=== PATIENT | female | born 1940 | race Two or more races ===

== ENCOUNTER 2020-04-08 12:42 | Outpatient (REF) | payer MEDICARE, MEDICAID, SELFPAY ==
--- NOTE | 2020-04-08 12:50 | MM_ITS ---
EXAMINATION: MM DIAGNOSTIC DIGITAL BREAST TOMOSYNTHESIS, BILATERAL CLINICAL INFORMATION: Six-month follow-up small density upper outer aspect of the left breast. The lifetime risk of breast cancer based on the Tyrer-Cuzick Model is 0.8%. COMPARISON: Mammography: January 10, 2019 and studies dating back to April 17, 2011 TECHNIQUE: Digital breast tomosynthesis is performed in both the craniocaudal and mediolateral oblique views along with computer-aided detection (CAD). Synthesized 2D images are generated from the tomosynthesis. FINDINGS: The breasts are extremely dense, which lowers the sensitivity of mammography (ACR BI-RADS breast composition Category d). There are no significant masses, abnormal calcifications, or other abnormalities. The previously noted circumscribed density in the upper outer aspect of the left breast is not identified. Results are provided to the patient at time of visit by the technologist. MM/MM tomosynthesis diagnostic BI IMPRESSION: No specific mammographic evidence to suggest malignancy. ASSESSMENT: BI-RADS 1: Negative RECOMMENDATION: Routine annual mammography screening due in 12 months. This patient's information was entered into a reminder system with a target due date for their next mammogram.
== END 2020-04-08 12:43 | disposition home or self-care (01) ==
LOC: HO.MAMMO 12:42
PROVIDERS: PCP Internal Medicine; Visit Provider Internal Medicine
DX: R92.2 Inconclusive mammogram (principal)
CPT/HCPCS: 77062; 77066

== ENCOUNTER 2020-05-07 10:42 | Outpatient (REF) | payer MEDICARE, SELFPAY ==
[2020-05-07 14:05] LABS: T4 Thyroxine 8.6 ug/dL (4.5-12.0)
== END 2020-05-07 10:43 | disposition home or self-care (01) ==
LOC: HO.LAB 10:42
PROVIDERS: PCP Internal Medicine; Visit Provider Internal Medicine
DX: E03.9 Hypothyroidism, unspecified (principal); F41.9 Anxiety disorder, unspecified
CPT/HCPCS: 36415; 84436; 84443

== ENCOUNTER 2020-10-14 11:36 | Outpatient (REF) | payer MEDICARE, SELFPAY | END 2020-10-14 11:37 | disposition home or self-care (01) | LOC: HO.LAB 11:36 | PROVIDERS: PCP Internal Medicine; Visit Provider Internal Medicine | DX: Z13.89 Encounter for screening for other disorder (principal) ==

== ENCOUNTER 2020-11-23 09:18 | Outpatient (REF) | payer MEDICARE, SELFPAY ==
[2020-11-23 10:15] LABS: MANUAL DIFF FLAG NO
[2020-11-23 10:27] LABS: Basophils Absolute Auto 0.1 X10*3/uL (0.0-0.2); Basophils Percent Auto 1.1 % (0-2); Eosinophils Absolute Auto 0.5 X10*3/uL (0.0-0.4); Eosinophils Percent Auto 7.8 % (0-4); Hematocrit 36.6 % (37-47); Hemoglobin 11.7 g/dl (12.0-16.0); Imm Gran Abs Auto 0.02 X10*3/uL (0.00-0.03); Imm Gran Pct Auto 0.3 % (0.0-0.4); Lymphocytes Absolute Auto 2.5 X10*3/uL (1.2-4.9); Lymphocytes Percent Auto 36.9 % (20-40); Mean Corpuscular Hemoglobin 29.8 pg (27.0-33.0); Mean Corpuscular Volume 93.1 fL (80-98); Mean Platelet Volume 9.4 fL (9.4-12.3); Monocytes Absolute Auto 0.6 X10*3/uL (0.1-1.2); Monocytes Percent Auto 8.9 % (2-11); Platelet Count 283 X10*3/uL (160-400); Red Blood Count 3.93 X10*6/uL (4.20-5.50); Red Cell Distribution Width 13.3 % (11.0-16.0); White Blood Count 6.7 X10*3/uL (4.8-10.8)
[2020-11-23 10:53] LABS: Alanine Aminotransferase 75 U/L (0-31); Albumin Level 4.3 g/dL (3.5-5.0); Alkaline Phosphatase 113 U/L (39-117); Anion Gap 12 (12-20); Aspartate Amino Transferase 116 U/L (5-31); Bilirubin Total 0.4 mg/dL (0.0-1.0); Blood Urea Nitrogen 12 mg/dL (9-16); Calcium 9.4 mg/dL (8.4-10.2); Carbon Dioxide 30 mmol/L (22-29); Chloride 101 mmol/L (96-108); Cholesterol 152 mg/dL; Estimated Glomerular Filt Rate 57; Glucose Random 105 mg/dL (60-115); HDL Cholesterol 30 mg/dL; LDL Cholesterol Calculated 51 mg/dl; Potassium 4.6 mmol/L (3.3-5.1); Sodium 138 mmol/L (135-145); Total Protein 8.4 g/dL (6.5-8.0); Triglycerides 356 mg/dL
[2020-11-23 11:11] LABS: Free T4 (Free Thyroxine) 0.89 ng/dL (0.71-1.85); Thyroid Stimulating Hormone 4.99 uIU/mL (0.32-4.0); Vitamin D 25-OH Total 30.5 ng/mL (>30)
[2020-11-23 11:15] LABS: Folate 18.4 ng/mL (> or = 4.0); Vitamin B12 899 pg/mL (200-900)
== END 2020-11-23 09:19 | disposition home or self-care (01) ==
LOC: HO.LAB 09:18
PROVIDERS: PCP Internal Medicine; Visit Provider Internal Medicine
DX: E03.9 Hypothyroidism, unspecified (principal); I10 Essential (primary) hypertension; E78.00 Pure hypercholesterolemia, unspecified; K21.9 Gastro-esophageal reflux disease without esophagitis
CPT/HCPCS: 36415; 80053; 80061; 82306; 82607; 82746; 83735; 84439; 84443; 85025

== ENCOUNTER 2021-01-04 08:09 | Outpatient (REF) | payer MEDICARE, MEDICAID, SELFPAY ==
[2021-01-04 10:17] LABS: Free T4 (Free Thyroxine) 0.86 ng/dL (0.71-1.85); Thyroid Stimulating Hormone 3.66 uIU/mL (0.32-4.0)
== END 2021-01-04 08:10 | disposition home or self-care (01) ==
LOC: HO.LAB 08:09
PROVIDERS: PCP Internal Medicine; Visit Provider Internal Medicine
DX: E03.9 Hypothyroidism, unspecified (principal)
CPT/HCPCS: 36415; 84439; 84443

== ENCOUNTER 2021-05-10 10:57 | Outpatient (REF) | payer MEDICARE, MEDICAID, SELFPAY ==
--- NOTE | ~2021-05-10 | XR_ITS ---
EXAMINATION: XR CHEST CLINICAL INFORMATION: Essential primary hypertension COMPARISON: Previous chest x-rays most recent April 2019 TECHNIQUE: 2 views of the chest were obtained. FINDINGS: The cardiac and mediastinal contours are stable. The lungs are clear. There is no pleural effusion or pneumothorax. There is mild scoliosis of the thoracic spine and degenerative changes. XR/XR chest 2V IMPRESSION: No evidence for acute disease in the chest.
== END 2021-05-10 10:58 | disposition home or self-care (01) ==
LOC: HO.XRAY 10:57
PROVIDERS: Visit Provider Internal Medicine
DX: I10 Essential (primary) hypertension (principal)
CPT/HCPCS: 71046

== ENCOUNTER 2021-06-17 13:01 | Outpatient (REF) | payer MEDICARE, MEDICAID, SELFPAY ==
--- NOTE | ~2021-06-17 | MM_ITS ---
EXAMINATION: MM SCREENING DIGITAL BREAST TOMOSYNTHESIS, BILATERAL CLINICAL INFORMATION: Screening. Asymptomatic. The lifetime risk of breast cancer based on the Tyrer-Cuzick Model is 1%. COMPARISON: Mammography: 04/08/2020, 01/10/2019, 07/09/2018, 01/02/2018, 12/19/2017, 08/05/2014 TECHNIQUE: Digital breast tomosynthesis is performed in both the craniocaudal and mediolateral oblique views along with computer-aided detection (CAD). Synthesized 2D images are generated from the tomosynthesis. FINDINGS: The breasts are heterogeneously dense, which may obscure small masses (ACR BI-RADS breast composition Category c). Breast tissue composition borders on extremely dense. Parenchymal pattern is similar to prior studies. There is no developing density or interval mass or interval architectural abnormality. Scattered bilateral benign coarse round and vascular calcifications are again seen. The axilla and skin contours are unremarkable. No significant changes. MM/MM tomosynthesis screening BI IMPRESSION: No significant changes from prior studies. ASSESSMENT: BI-RADS 2: Benign RECOMMENDATION: Routine annual mammography screening. This patient's information was entered into a reminder system with a target due date for their next mammogram.
== END 2021-06-17 13:02 | disposition home or self-care (01) ==
LOC: HO.MAMMO 13:01
PROVIDERS: PCP Internal Medicine; Visit Provider Internal Medicine
DX: Z12.31 Encounter for screening mammogram for malignant neoplasm of breast (principal)
CPT/HCPCS: 77063; 77067

== ENCOUNTER 2021-11-02 09:07 | Outpatient (REF) | payer MEDICARE, MEDICAID, SELFPAY ==
[2021-11-02 09:23] LABS: MANUAL DIFF FLAG NO
[2021-11-02 10:09] LABS: Basophils Absolute Auto 0.1 X10*3/uL (0.0-0.2); Basophils Percent Auto 0.9 % (0-2); Eosinophils Absolute Auto 0.5 X10*3/uL (0.0-0.4); Eosinophils Percent Auto 7.6 % (0-4); Hematocrit 34.9 % (37.0-47.0); Hemoglobin 11.4 g/dl (12.0-16.0); Imm Gran Abs Auto 0.02 X10*3/uL (0.00-0.03); Imm Gran Pct Auto 0.3 % (0.0-0.4); Immature Retic Fraction 13.7 % (3.0-15.9); Lymphocytes Absolute Auto 2.6 X10*3/uL (1.2-4.9); Lymphocytes Percent Auto 40.1 % (20-40); Mean Corpuscular HGB Conc 32.7 g/dl (31.0-35.0); Mean Corpuscular Hemoglobin 29.6 pg (27.0-33.0); Mean Corpuscular Volume 90.6 fL (80.0-98.0); Monocytes Absolute Auto 0.7 X10*3/uL (0.1-1.2); Neutrophils Absolute Auto 2.7 x10*3/uL (2.0-8.3); Neutrophils Percent Auto 41.1 % (45-73); Platelet Count 270 X10*3/uL (160-400); Red Blood Count 3.85 X10*6/uL (4.20-5.50); Red Cell Distribution Width 13.2 % (11.0-16.0); Reticulocytes Absolute 0.078 X10*6/uL (0.026-0.095); White Blood Count 6.6 X10*3/uL (4.8-10.8)
[2021-11-02 10:36] LABS: Alanine Aminotransferase 23 U/L (0-31); Albumin Level 4.2 g/dL (3.5-5.0); Alkaline Phosphatase 92 U/L (39-117); Anion Gap 10 (12-20); Aspartate Amino Transferase 37 U/L (5-31); Bilirubin Total 0.5 mg/dL (0.0-1.0); Blood Urea Nitrogen 15 mg/dL (9-16); Calcium 9.3 mg/dL (8.4-10.2); Carbon Dioxide 29 mmol/L (22-29); Chloride 98 mmol/L (96-108); Cholesterol 125 mg/dL; Estimated Glomerular Filt Rate 59; Glucose Random 96 mg/dL (60-115); HDL Cholesterol 33 mg/dL; Iron 66 mcg/dL (30-160); LDL Cholesterol Calculated 65 mg/dl; Percent Iron Saturation 23 % (15-50); Potassium 4.8 mmol/L (3.3-5.1); Sodium 132 mmol/L (135-145); Total Iron Binding Capacity 288 mcg/dL (228-428); Total Protein 8.3 g/dL (6.5-8.0); Triglycerides 135 mg/dL; Unsaturated Iron Binding 222 ug/dL
[2021-11-02 10:59] LABS: Ferritin 119 ng/mL (10-250); Free T4 (Free Thyroxine) 0.92 ng/dL (0.71-1.85); Thyroid Stimulating Hormone 1.76 uIU/mL (0.32-4.0)
[2021-11-02 11:12] LABS: Folate > 20.0 ng/mL (> or = 4.0); Vitamin B12 711 pg/mL (200-900)
== END 2021-11-02 09:08 | disposition home or self-care (01) ==
LOC: HO.LAB 09:07
PROVIDERS: PCP Internal Medicine; Visit Provider Internal Medicine
DX: D64.9 Anemia, unspecified (principal); E03.9 Hypothyroidism, unspecified; E78.00 Pure hypercholesterolemia, unspecified; K76.0 Fatty (change of) liver, not elsewhere classified
CPT/HCPCS: 36415; 80053; 80061; 82607; 82728; 82746; 83540; 84439; 84443; 85025; 85045

== ENCOUNTER 2022-03-18 10:49 | Emergency (ER) | payer MEDICARE, MEDICAID, SELFPAY ==
[2022-03-18 10:52] VITALS: BP 158/76; PULSE 99; RESP 18; TEMP 36.6; O2SAT 98; BMI 23.6
--- NOTE | 2022-03-18 12:08 | ED_ITS ---
HPI - General Adult General Chief complaint: General Medical Stated complaint: R side pain Time Seen by Provider: 03/18/22 12:03 Source: patient Mode of arrival: ambulatory History of Present Illness HPI narrative: 81-year-old female with a past medical history of asthma, GERD, HLD, HTN, hypothyroid, knee osteoarthritis, presenting to the ED complaining of right- sided low back pain radiating down right lower extremity times months. Denies known injury, trauma, fall, fever, numbness, tingling, weakness, urinary incontinence/retention, hematuria, flank pain. Takes Tylenol & ASA without relief Onset (ago): month(s) Related Data Home Medications Medication Instructions Recorded Confirmed albuterol sulfate 2.5 mg/3 mL 2.5 mg inhalation Q4-6H PRN 03/08/20 02/23/22 (0.083 %) solution for nebulization lidocaine 5 % topical ointment 1 applic topical TID 03/08/20 02/23/22 hydroxyzine HCl 25 mg tablet 25 mg PO BID PRN 07/26/21 02/23/22 methylprednisolone 4 mg tablet 4 mg PO DAILY 02/23/22 02/23/22 fluticasone furoate 100 1 inh inhalation DAILY 03/14/22 mcg-vilanterol 25 mcg/dose inhalation powder (Breo Ellipta) Previous Rx's Medication Instructions Recorded polyethylene glycol 3350 17 17 g PO DAILY #510 grams 03/22/20 gram/dose oral powder olopatadine 0.1 % eye drops 1 drp ophthalmic (eye) BID #5 mL 01/31/21 fluticasone propionate 50 2 spray intranasal DAILY #16 grams 04/19/21 mcg/actuation nasal spray,suspension (Flonase Allergy Relief) levothyroxine 50 mcg tablet 50 mcg PO QAM 90 days #90 tabs 04/19/21 meloxicam 7.5 mg tablet 7.5 mg PO DAILY #30 tabs 04/19/21 hydrocortisone 2.5 % topical cream 1 appl IN BID-QID PRN hemorrhoids 07/26/21 with perineal applicator #30 grams (Proctosol HC) triamcinolone acetonide 0.5 % 1 appl topical BID 7 days #15 grams 07/26/21 topical cream diclofenac sodium 1 % topical gel 4 g topical QID 30 days #3 grams 08/23/21 (Voltaren Arthritis Pain) paroxetine HCl 10 mg tablet 10 mg PO DAILY 90 days #90 tabs 08/23/21 alprazolam 1 mg tablet 1 mg PO BID 30 days #45 tabs 10/24/21 docusate sodium 100 mg capsule 200 mg PO DAILY 90 days #180 caps 11/04/21 (Colace) atorvastatin 10 mg tablet 10 mg PO DAILY #90 tabs 12/05/21 promethazine 25 mg tablet 25 mg PO Q4-6H PRN nausea and 02/23/22 vomiting #30 tabs blood pressure monitor (Blood #1 ea 03/01/22 Pressure Kit) albuterol sulfate 90 mcg/actuation 2 puff inhalation Q4-6H PRN 03/09/22 aerosol inhaler (Ventolin HFA) bronchospasm #8.5 grams amlodipine 5 mg tablet 5 mg PO DAILY 90 days #90 tabs 03/09/22 pantoprazole 40 mg tablet,delayed 40 mg PO BID #180 tabs 03/09/22 release simethicone 125 mg capsule 125 mg PO BID-QID PRN abdominal 03/09/22 distention #20 caps acetaminophen 500 mg tablet 500 mg PO Q6H PRN fever or pain 03/18/22 (Tylenol Extra Strength) #14 tabs cyclobenzaprine 5 mg tablet 5 mg PO Q8H PRN pain (scale score 03/18/22 7-10) 5 days #14 tabs lidocaine 5 % topical patch 1 patch topical DAILY PRN pain #30 03/18/22 (Lidoderm) ea naproxen 500 mg tablet 500 mg PO BID PRN pain 10 days #20 03/18/22 tabs Allergies Allergy/AdvReac Type Severity Reaction Status Date / Time penicillin G [Penicillin G] Allergy Mild VOMITING Verified 02/23/22 14:23 penicillin V Allergy Unknown hives Verified 02/23/22 14:23 Review of Systems Review of Systems: Constitutional: No Fever, No Chills ENT/Mouth: No Ear Pain, No Nasal Congestion, No Sinus Pain, No Hoarseness, No sore throat, No Rhinorrhea, No Swallowing Difficulty Cardiovascular: No Chest Pain, No SOB Respiratory: No Cough, No Sputum, No Wheezing Gastrointestinal: No Nausea, No Vomiting, No Diarrhea, No Constipation, No Abdominal pain Genitourinary: No Dysuria, No Urinary Frequency, No Hematuria, No Urinary Incon tinence/retention, No Urgency, No Flank Pain Musculoskeletal: + joint pain, No Myalgias, No Joint Swelling Skin: No Skin Lesions, No rash Neuro: No Weakness, No Numbness, No Paresthesias Yes all other systems are reviewed and are negative Constitutional: Constitutional: Reports as per [facility] Past Medical History Attestation statement: The following information was validated with the patient. Medical History Asthma Bilateral femoral artery stenosis Colonoscopy refused GERD (gastroesophageal reflux disease) Hypercholesterolemia Hypertension Hypothyroid Knee osteoarthritis Surgical History History of surgery Family History Family History Family/Other Medical history unknown Social History Social History Housing: Apartment Alcohol intake: never Patient Tobacco Use Status: Never used Tobacco Tobacco use type: Cigarette e-Cigarette/Vaping Use: Never Used Second Hand Smoke Exposure: No Advance Directives: No service: No Current occupational status: disabled Current occupational exposures/hazards: No Cognitive needs: No Hearing needs: No Vision needs: Yes Physical Exam ED Vital Signs: Vital Signs - 24 hr 03/18/22 10:52 Temperature 98 F Pulse Rate 99 Respiratory Rate 18 Blood Pressure 158/76 H Pulse Oximetry 98 Oxygen Delivery Method Room Air BMI result Body Mass Index 23.6 Const General: cooperative, healthy appearing and no acute distress Orientation/consciousness: patient oriented x3 Limitations: no limitations HENMT Head: Yes normal to inspection and Yes atraumatic Ears: hearing grossly normal bilaterally General nose exam: Normal external nose present Face and sinus: Yes normal facial exam Eyes General: appearance normal, both eyes and all related structures EOM: EOMs intact bilaterally Neck Neck: Yes normal visual inspection and Yes no meningeal signs Resp Effort & Inspection: normal respiratory effort and no respiratory distress Cardio Rate: regular rate Heart sounds: S1 normal heart sound present and S2 normal heart sound present General: Yes no CVA tenderness Back/Spine/Pelvis Other: No midline thoracic/lumbar spinous tenderness/step-off or deformity. + right- sided buttock MSK tenderness to palpation Back: no CVA tenderness Thoracic/Lumbar Spine: thoracic and lumbar spine normal to inspection Pelvis: no pain with anterior-posterior compression Skin Rashes: no rashes Wounds: no wounds Neuro Other: Strength intact throughout. No saddle anesthesia. Sensation intact to light touch. Neurovascular intact distally General: patient oriented x3, gait normal, tone normal, moves all extremities and no meningeal signs Gait exam (Neuro): Normal gait present Extrem General: Yes normal to inspection Medical Decision Making MDM Narrative Medical decision making narrative: 81-year-old female with a past medical history of asthma, GERD, HLD, HTN, hypothyroid, knee osteoarthritis, presenting to the ED complaining of right- sided low back pain radiating down right lower extremity times months. On exam vital signs stable, NAD, nontoxic appearing, no midline spinous tenderness throughout or red flag symptoms, ambulating with steady gait. No saddle a nesthesia. Concern for MSK pain/strain and sciatica. Low suspicion for cauda equina, cord compression, fracture, pyelo Plan: IM Toradol, p.o. Flexeril Results discussed with patient including worrisome signs and symptoms and strict return precautions, and when to return to the emergency department. They verbalized understanding and feel safe for discharge at this time. Medical Records Medical records reviewed: Yes I reviewed the patient's medical records. Lab Data Lab results reviewed: Yes I reviewed the patient's lab results. Discharge Plan Discharge Clinical Impression: Sciatic leg pain Patient Disposition: Home, Self-Care Instructions: Sciatica (ED) Additional Instructions: Your pain is likely musculoskeletal Flexeril is a muscle relaxer, take at night as it makes you drowsy, do not drive, drink alcohol, or operate machinery while taking it Naproxen as an anti-inflammatory / pain medication, take with food Lidoderm patches are numbing patches, apply to painful area In addition take Tylenol at home If symptoms persist or worsen, pain becomes unbearable, you developed urinary retention or incontinence, or weakness return to the ED Es probable que jacobsen dolor sea musculoesquel?lyndsey Flexeril es un relajante muscular, t?priti por la noche ya que te adormece, no conduzcas, bebas alcohol ni operes maquinaria mientras lo jd. Naproxeno lenard medicamento antiinflamatorio/analg?sico, t?yoon con alimentos Los parches de Lidoderm son parches anest?sicos, se aplican en el ?marina dolorida Adem?s richie Tylenol en casa Si los s?ntomas persisten o empeoran, el dolor se vuelve insoportable, desarroll? retenci?n urinaria o incontinencia, o debilidad, regrese al servicio de urgencias. Prescriptions: New lidocaine [Lidoderm] 5 % adhesive patch,medicated 1 patch topical DAILY MDD remove after 12 hours PRN (Reason: pain) Qty: 30 0RF Rx Instructions: leave on most painful area for up to 12 hrs cyclobenzaprine 5 mg tablet 5 mg PO Q8H PRN (Reason: pain (scale score 7-10)) 5 Days Qty: 14 0RF acetaminophen [Tylenol Extra Strength] 500 mg tablet 500 mg PO Q6H PRN (Reason: fever or pain) Qty: 14 0RF naproxen 500 mg tablet 500 mg PO BID PRN (Reason: pain) 10 Days Qty: 20 0RF No Action polyethylene glycol 3350 17 gram/dose powder 17 g PO DAILY Qty: 510 11RF diclofenac sodium [Voltaren Arthritis Pain] 1 % gel 4 g topical QID 30 Days Qty: 3 4RF Rx Instructions: apply to single elbow, wrist or hand; for hand includes palm/fingers/back of hand paroxetine HCl 10 mg tablet 10 mg PO DAILY 90 Days Qty: 90 1RF alprazolam 1 mg tablet 1 mg PO BID 30 Days Qty: 45 3RF atorvastatin 10 mg tablet 10 mg PO DAILY Qty: 90 2RF (DME) blood pressure monitor [Blood Pressure Kit] Kit See Rx Instructions .ROUTE .MEDSUPPLY Qty: 1 0RF Rx Instructions: As directed amlodipine 5 mg tablet 5 mg PO DAILY 90 Days Qty: 90 2RF albuterol sulfate [Ventolin HFA] 90 mcg/actuation HFA aerosol inhaler 2 puff inhalation Q4-6H PRN (Reason: bronchospasm) Qty: 8.5 0RF pantoprazole 40 mg tablet,delayed release (DR/EC) 40 mg PO BID Qty: 180 2RF simethicone 125 mg capsule 125 mg PO BID-QID PRN (Reason: abdominal distention) Qty: 20 0RF fluticasone furoate-vilanterol [Breo Ellipta] 100-25 mcg/dose blister with device 1 inh inhalation DAILY lidocaine 5 % ointment 1 applic topical TID albuterol sulfate 2.5 mg /3 mL (0.083 %) solution for nebulization 2.5 mg inhalation Q4-6H PRN levothyroxine 50 mcg tablet 50 mcg PO QAM 90 Days Qty: 90 3RF fluticasone propionate [Flonase Allergy Relief] 50 mcg/actuation spray,suspension 2 spray intranasal DAILY Qty: 16 8RF Rx Instructions: administer into each nostril meloxicam 7.5 mg tablet 7.5 mg PO DAILY Qty: 30 0RF olopatadine 0.1 % drops 1 drp ophthalmic (eye) BID Qty: 5 1RF Rx Instructions: separate doses by at least 6-8 hours hydroxyzine HCl 25 mg tablet 25 mg PO BID PRN hydrocortisone [Proctosol HC] 2.5 % cream with perineal applicator 1 appl IN BID-QID PRN (Reason: hemorrhoids) Qty: 30 0RF triamcinolone acetonide 0.5 % cream 1 appl topical BID 7 Days Qty: 15 0RF docusate sodium [Colace] 100 mg capsule 200 mg PO DAILY 90 Days Qty: 180 3RF methylprednisolone 4 mg tablet 4 mg PO DAILY promethazine 25 mg tablet 25 mg PO Q4-6H PRN (Reason: nausea and vomiting) Qty: 30 0RF Referrals: Po,Arlen Cronin MD [Primary Care Provider] - 5 days Print Language: Belarusian
[2022-03-18] MEDS: Cyclobenzaprine HCl 10 MG TABLET PO (13:04)
[2022-03-18] MEDS: Ketorolac Tromethamine 30 MG/ML VIAL IM (13:04)
== END 2022-03-18 13:19 | disposition home or self-care (01) ==
PROVIDERS: Emergency Provider Emergency Medicine Emergency Medical Services; PCP Internal Medicine
DX: M54.41 Lumbago with sciatica, right side (principal); I10 Essential (primary) hypertension; E78.00 Pure hypercholesterolemia, unspecified; Z79.02 Long term (current) use of antithrombotics/antiplatelets; Z79.899 Other long term (current) drug therapy
CPT/HCPCS: 96372; 99283; 99284; J1885

== ENCOUNTER 2022-09-11 10:08 | Outpatient (REF) | payer MEDICARE, MEDICAID, SELFPAY ==
[2022-09-11 10:22] LABS: MANUAL DIFF FLAG NO
[2022-09-11 10:48] LABS: Basophils Absolute Auto 0.1 X10*3/uL (0.0-0.2); Basophils Percent Auto 1.5 % (0-2); Eosinophils Absolute Auto 0.6 X10*3/uL (0.0-0.4); Eosinophils Percent Auto 9.8 % (0-4); Hematocrit 35.5 % (37.0-47.0); Hemoglobin 11.6 g/dl (12.0-16.0); Imm Gran Abs Auto 0.02 X10*3/uL (0.00-0.03); Imm Gran Pct Auto 0.3 % (0.0-0.4); Immature Retic Fraction 12.9 % (3.0-15.9); Lymphocytes Absolute Auto 2.2 X10*3/uL (1.2-4.9); Lymphocytes Percent Auto 36.9 % (20-40); Mean Corpuscular HGB Conc 32.7 g/dl (31.0-35.0); Mean Corpuscular Hemoglobin 29.2 pg (27.0-33.0); Mean Corpuscular Volume 89.4 fL (80.0-98.0); Monocytes Absolute Auto 0.6 X10*3/uL (0.1-1.2); Monocytes Percent Auto 10.8 % (2-11); Neutrophils Absolute Auto 2.4 x10*3/uL (2.0-8.3); Neutrophils Percent Auto 40.7 % (45-73); Platelet Count 307 X10*3/uL (160-400); Red Blood Count 3.97 X10*6/uL (4.20-5.50); Red Cell Distribution Width 13.3 % (11.0-16.0); Retic HGB Equivalent 34.2 pg (30.0-35.0); Reticulocytes Absolute 0.077 X10*6/uL (0.026-0.095); White Blood Count 5.8 X10*3/uL (4.8-10.8)
[2022-09-11 11:44] LABS: Alanine Aminotransferase 36 U/L (0-31); Alkaline Phosphatase 114 U/L (39-117); Anion Gap 13 (12-20); Aspartate Amino Transferase 62 U/L (5-31); Bilirubin Total 0.6 mg/dL (0.0-1.0); Blood Urea Nitrogen 11 mg/dL (9-16); Calcium 9.7 mg/dL (8.4-10.2); Carbon Dioxide 27 mmol/L (22-29); Chloride 96 mmol/L (96-108); Estimated Glomerular Filt Rate > 60; Glucose Random 96 mg/dL (60-115); Iron 56 mcg/dL (30-160); Percent Iron Saturation 23 % (15-50); Potassium 4.4 mmol/L (3.3-5.1); Sodium 132 mmol/L (135-145); Total Iron Binding Capacity 243 mcg/dL (228-428); Total Protein 8.4 g/dL (6.5-8.0); Unsaturated Iron Binding 187 ug/dL
[2022-09-11 12:12] LABS: Ferritin 148 ng/mL (10-250); Folate 17.8 ng/mL (> or = 4.0); Free T4 (Free Thyroxine) 0.81 ng/dL (0.71-1.85); Vitamin B12 778 pg/mL (200-900)
== END 2022-09-11 10:09 | disposition home or self-care (01) ==
LOC: HO.LAB 10:08
PROVIDERS: PCP Internal Medicine; Visit Provider Internal Medicine
DX: D64.9 Anemia, unspecified (principal)
CPT/HCPCS: 36415; 80053; 82607; 82728; 82746; 83540; 84439; 84443; 85025; 85045

== ENCOUNTER 2022-09-21 08:20 | Emergency (ER) | payer MEDICARE, MEDICAID, SELFPAY ==
--- NOTE | ~2022-09-21 | XR_ITS ---
EXAMINATION: TWO-VIEW CHEST, LUMBAR SPINE, AND RIGHT HIP. CLINICAL INFORMATION: Right-sided chest pain. Right hip pain. Lower back pain. COMPARISON: Chest x-ray of May 10, 2021 lumbar spine of June 15, 2009 TECHNIQUE: PA and lateral chest, AP pelvis and 2 views right hip, and three-view lumbar spine. FINDINGS: Chest: There is some stable increased interstitial markings about the right upper lobe. No new confluent parenchymal disease is noted. There is a small region of density about the level of the left nipple which appears to be within the lingula and may be related to atelectasis or small focus of pneumonitis. No pneumothorax or pleural effusion. Heart normal size. No evidence of pulmonary edema. AP pelvis and two-view right hip: There is no evidence of acute fracture or diastases of the pelvis. Sacroiliac joints appear unremarkable. No destructive bony lesion is identified. The hip joint spaces appear maintained. There is some mild spurring about the greater trochanters. Prominent vascular calcifications are noted. There appears to be some degenerative disc disease with facet arthropathy L5-S1. There is no evidence of acute fracture or dislocation of the right hip. Right hip joint space maintained. Mild collar spurring present. No abnormal lytic or sclerotic lesions are appreciated about the femoral head. Lumbar spine: There is no evidence of acute fracture, spondylolisthesis, or spondylolysis of the lumbar spine. There are 5 nonrib-bearing lumbar vertebra. There is disc space narrowing seen at the L5-S1 level with bilateral facet arthropathy. Pedicles appear intact. There is calcification of a nonaneurysmal abdominal aorta. XR/XR lumbar spine 2-3V IMPRESSION: Degenerative disc disease and facet arthropathy at the L5-S1 level. Chronic region of increased interstitial markings within the right upper lobe as well as minimal density within the lingula likely related to atelectasis. No evidence of acute fracture or diastases the pelvis. No significant right hip abnormality identified as described above.
[2022-09-21 08:26] VITALS: BP 174/79; PULSE 95; RESP 16; TEMP 37.2; O2SAT 97; BMI 25.1
[2022-09-21] MEDS: oxyCODONE HCl Immed Release 5 MG TABLET PO (09:40)
--- NOTE | 2022-09-21 11:31 | ED_ITS ---
HPI - Fall General Chief Complaint: Fall Stated Complaint: fall , back pain and side pain Time Seen by Provider: 09/21/22 08:33 Source: patient Mode of arrival: ambulatory Limitations: no limitations History of Present Illness HPI Narrative: 81-year-old female presents with multiple musculoskeletal complaints after fall. Patient fell on Sunday from a chair. She did not hit her head or lose consciousness. She did hit the right side of her body. She is complaining of right-sided thoracic pain posteriorly, right low back pain, right hip and pelvic pain. The pain is moderate to severe. Worse with movement. The pain does not radiate. Pain is achy and sharp in nature. She has been able to ambulate but with increasing difficulty secondary to pain. She denies any headache, nausea, vomiting, vision changes, focal neurologic deficits. The fall was mechanical not associated with chest pain, lightheadedness, shortness of breath, palpitations or dizziness. She has tried Tylenol with no relief at home. Related Data Home Medications Medication Instructions Recorded Confirmed albuterol sulfate 2.5 mg/3 mL 2.5 mg inhalation Q4-6H PRN 03/08/20 06/13/22 (0.083 %) solution for nebulization hydroxyzine HCl 25 mg tablet 25 mg PO BID PRN 07/26/21 06/13/22 fluticasone furoate 100 1 inh inhalation DAILY 03/14/22 06/13/22 mcg-vilanterol 25 mcg/dose inhalation powder (Breo Ellipta) Previous Rx's Medication Instructions Recorded polyethylene glycol 3350 17 17 g PO DAILY #510 grams 03/22/20 gram/dose oral powder olopatadine 0.1 % eye drops 1 drp ophthalmic (eye) BID #5 mL 01/31/21 fluticasone propionate 50 2 spray intranasal DAILY #16 grams 04/19/21 mcg/actuation nasal spray,suspension (Flonase Allergy Relief) triamcinolone acetonide 0.5 % 1 appl topical BID 7 days #15 grams 07/26/21 topical cream diclofenac sodium 1 % topical gel 4 g topical QID 30 days #3 grams 08/23/21 (Voltaren Arthritis Pain) paroxetine HCl 10 mg tablet 10 mg PO DAILY 90 days #90 tabs 08/23/21 docusate sodium 100 mg capsule 200 mg PO DAILY 90 days #180 caps 11/04/21 (Colace) promethazine 25 mg tablet 25 mg PO Q4-6H PRN nausea and 02/23/22 vomiting #30 tabs blood pressure monitor (Blood #1 ea 03/01/22 Pressure Kit) albuterol sulfate 90 mcg/actuation 2 puff inhalation Q4-6H PRN 03/09/22 aerosol inhaler (Ventolin HFA) bronchospasm #8.5 grams amlodipine 5 mg tablet 5 mg PO DAILY 90 days #90 tabs 03/09/22 pantoprazole 40 mg tablet,delayed 40 mg PO BID #180 tabs 03/09/22 release acetaminophen 500 mg tablet 500 mg PO Q6H PRN fever or pain 03/18/22 (Tylenol Extra Strength) #14 tabs levothyroxine 50 mcg tablet 50 mcg PO QAM 90 days #90 tabs 05/04/22 CANE #1 ea 06/13/22 SHOWER CHAIR WITH BACK #1 ea 06/13/22 alprazolam 1 mg tablet 1 mg PO BID 30 days #45 tabs 08/31/22 atorvastatin 10 mg tablet 10 mg PO DAILY #90 tabs 09/12/22 simethicone 125 mg capsule 125 mg PO BID-QID PRN abdominal 09/12/22 distention #60 caps Allergies Allergy/AdvReac Type Severity Reaction Status Date / Time penicillin G [Penicillin G] Allergy Mild VOMITING Verified 09/12/22 16:03 penicillin V Allergy Unknown hives Verified 09/12/22 16:03 PMFSH Past Medical History Medical History Asthma Bilateral femoral artery stenosis Colonoscopy refused GERD (gastroesophageal reflux disease) Hypercholesterolemia Hypertension Hypothyroid Knee osteoarthritis Surgical History History of surgery Family History Family History Family/Other Medical history unknown Social History Social History Housing: Apartment Alcohol intake: never Patient Tobacco Use Status: Never used Tobacco Tobacco use type: Cigarette e-Cigarette/Vaping Use: Never Used Second Hand Smoke Exposure: No Advance Directives: No Advance Directives Information Provided: Yes service: No Current occupational status: disabled Current occupational exposures/hazards: No Cognitive needs: No Hearing needs: No Vision needs: Yes Physical Exam Vital Signs: Vital Signs: Last Vital Signs Temp 98.9 F 09/21/22 08:26 Pulse 95 09/21/22 08:26 Resp 16 09/21/22 08:26 BP 174/79 H 09/21/22 08:26 Pulse Ox 97 09/21/22 08:26 O2 Del Method Room Air 09/21/22 08:26 BMI result Body Mass Index 25.1 GEN: Well developed, no acute distress, alert, oriented HEENT: Normocephalic, atraumatic, normal external ears, nose appears normal, no oropharyngeal edema or exudates Eyes: Normal to appearance Neck: Supple, no lymphadenopathy Respiratory: Talks in complete sentences, no respiratory distress, clear to auscultation bilaterally Cardiovascular: Regular rate and rhythm, no murmurs rubs or gallops Abdomen: Soft, nontender, nondistended, no guarding, no rebound Back: Right thoracic pain, right low back pain, no midline tenderness Extremities: No clubbing cyanosis or edema, no deformity, no external rotation or shortening Neurologic: No focal neurologic deficits, cranial nerves 2-12 intact, strength is 5/5 bilaterally Skin: No rash Course Course Course Narrative: 81-year-old female presents after an accidental fall, presenting with right- sided pain complaints. There is no evidence deformities. She has no acute distress. Her lungs are clear to auscultation bilaterally. Abdomen was soft nontender. She did have some right thoracic posterior pain, right lumbar paraspinous tenderness. She has some tenderness over the buttock area but no external short rotation or shortening of the right hip. X-rays were negative for acute traumatic injury. Patient was treated with oxycodone with good improvement. Will discharge the patient follow-up with her primary care provider. Will prescribe a small amount of oxycodone. She can take Tylenol for additional Medications Administered Discontinued Medications Generic Name Dose Route Start Last Admin Trade Name Guiq PRN Reason Stop Dose Admin Oxycodone HCl 5 mg 09/21/22 09:11 09/21/22 09:40 Oxycodone Hcl Immed Release 5 Mg Tablet PO 09/21/22 09:12 5 mg ONCE ONE Administration Medical Decision Making Medical Decision Making MDM Narrative: 81-year-old female presents with right-sided traumatic pain. Examination revealed tenderness to the posterior thoracic area, lumbar right paraspinous, right buttock area. There is no evidence supporting. Doubt pelvic fracture or hip fracture. However, will obtain a chest x-ray to rule out pulmonary contusion, pneumothorax, lumbar x-ray to rule out acute compression fracture and a pelvic and hip film given her age to rule out pelvic and/or hip fracture. Differential Diagnosis Differential Diagnoses: The differential diagnosis associated with the presentation includes (Sprain, strain, contusion, musculoskeletal pain) Independent Interpretation I performed an independent interpretation of an: Plain X-Ray (Chest: No acute cardiopulmonary disease, low LS spine: No acute traumatic injury, right hip with pelvis: No acute traumatic injury) Radiology Impression Radiologist Impression: XR/XR chest 2V IMPRESSION: Degenerative disc disease and facet arthropathy at the L5-S1 level. ? Chronic region of increased interstitial markings within the right upper lobe as well as minimal density within the lingula likely related to atelectasis. ? No evidence of acute fracture or diastases the pelvis. ? No significant right hip abnormality identified as described above. Prescription Management I considered prescription management with: Pain Medication Discharge Plan Discharge Clinical Impression: Musculoskeletal pain, Accidental fall Patient Disposition: Home, Self-Care Instructions: Fall Prevention (ED), Musculoskeletal Pain (ED) Additional Instructions: For pain: Tylenol 1000 mg every 6 hours as needed Oxycodone 5 mg every 8 hours as needed, may cause constipation, nausea, sedation Prescriptions: No Action polyethylene glycol 3350 17 gram/dose powder 17 g PO DAILY Qty: 510 11RF diclofenac sodium [Voltaren Arthritis Pain] 1 % gel 4 g topical QID 30 Days Qty: 3 4RF Rx Instructions: apply to single elbow, wrist or hand; for hand includes palm/fingers/back of hand paroxetine HCl 10 mg tablet 10 mg PO DAILY 90 Days Qty: 90 1RF (DME) blood pressure monitor [Blood Pressure Kit] Kit See Rx Instructions .ROUTE .MEDSUPPLY Qty: 1 0RF Rx Instructions: As directed amlodipine 5 mg tablet 5 mg PO DAILY 90 Days Qty: 90 2RF albuterol sulfate [Ventolin HFA] 90 mcg/actuation HFA aerosol inhaler 2 puff inhalation Q4-6H PRN (Reason: bronchospasm) Qty: 8.5 0RF pantoprazole 40 mg tablet,delayed release (DR/EC) 40 mg PO BID Qty: 180 2RF fluticasone furoate-vilanterol [Breo Ellipta] 100-25 mcg/dose blister with device 1 inh inhalation DAILY levothyroxine 50 mcg tablet 50 mcg PO QAM 90 Days Qty: 90 3RF alprazolam 1 mg tablet 1 mg PO BID 30 Days Qty: 45 0RF atorvastatin 10 mg tablet 10 mg PO DAILY Qty: 90 2RF acetaminophen [Tylenol Extra Strength] 500 mg tablet 500 mg PO Q6H PRN (Reason: fever or pain) Qty: 14 0RF albuterol sulfate 2.5 mg /3 mL (0.083 %) solution for nebulization 2.5 mg inhalation Q4-6H PRN fluticasone propionate [Flonase Allergy Relief] 50 mcg/actuation spray,suspension 2 spray intranasal DAILY Qty: 16 8RF Rx Instructions: administer into each nostril olopatadine 0.1 % drops 1 drp ophthalmic (eye) BID Qty: 5 1RF Rx Instructions: separate doses by at least 6-8 hours hydroxyzine HCl 25 mg tablet 25 mg PO BID PRN triamcinolone acetonide 0.5 % cream 1 appl topical BID 7 Days Qty: 15 0RF docusate sodium [Colace] 100 mg capsule 200 mg PO DAILY 90 Days Qty: 180 3RF promethazine 25 mg tablet 25 mg PO Q4-6H PRN (Reason: nausea and vomiting) Qty: 30 0RF (DME) SHOWER CHAIR WITH BACK See Rx Instructions .Route .MEDSUPPLY Qty: 1 0RF Rx Instructions: As directed (DME) CANE See Rx Instructions .Route .MEDSUPPLY Qty: 1 0RF Rx Instructions: As directed simethicone 125 mg capsule 125 mg PO BID-QID PRN (Reason: abdominal distention) Qty: 60 0RF Referrals: Po,Arlen Cronin MD [Primary Care Provider] - 1 week Print Language: Malagasy
== END 2022-09-21 11:48 | disposition home or self-care (01) ==
PROVIDERS: Emergency Provider Emergency Medicine; PCP Internal Medicine
DX: S39.92XA Unspecified injury of lower back, initial encounter (principal); S29.9XXA Unspecified injury of thorax, initial encounter; M54.6 Pain in thoracic spine; M25.551 Pain in right hip; M79.10 Myalgia, unspecified site; R07.89 Other chest pain; W01.0XXA Fall on same level from slipping, tripping and stumbling without subsequent striking against object, initial encounter; Y93.9 Activity, unspecified; Y92.9 Unspecified place or not applicable; Y99.9 Unspecified external cause status; Z79.899 Other long term (current) drug therapy
CPT/HCPCS: 71046; 72100; 73502; 99283

== ENCOUNTER 2022-12-28 15:14 | Outpatient (AMB) | payer MEDICARE, MEDICAID, SELFPAY ==
--- NOTE | 2022-12-28 15:20 | A.OFFPC_ITS ---
Vital Signs 12/28/22 15:21 Height 4 ft 10 in Weight 111 lb BMI 23.2 BP 140/82 H Blood Pressure Location Lt brachial Position Sitting Pulse 75 Pulse Source Pulse Oximeter Pulse Oximetry (%) 95 Oxygen Delivery Method Room Air Intake Visit Reasons: 3 month f/u Allergies penicillin G [Penicillin G] Allergy (Mild, Verified 12/28/22 15:21) VOMITING penicillin V Allergy (Unknown, Verified 12/28/22 15:21) hives Medication List - Last Reconciled 12/28/22 by Arlen Bray MD acetaminophen (Tylenol Extra Strength) 500 mg PO Q6H PRN albuterol sulfate 2.5 mg inhalation Q4-6H PRN albuterol sulfate 90 mcg/actuation (Ventolin HFA) 2 puffs inhalation Q4-6H PRN alprazolam 1 mg PO BID 30 days amlodipine 5 mg PO DAILY 90 days atorvastatin 10 mg PO DAILY blood pressure monitor (Blood Pressure Kit) As directed [CANE As directed] diclofenac sodium 1% (Voltaren Arthritis Pain) 4 grams topical QID 30 days docusate sodium (Colace) 200 mg (2 x 100 mg) PO DAILY 90 days dupilumab (Dupixent) 200 mg (1.34 mL) subcut Q2W fluticasone furoate-vilanterol 100-25 mcg/dose (Breo Ellipta) 1 inh inhalation DAILY fluticasone propionate 50 mcg/actuation (Flonase Allergy Relief) 2 sprays intranasal DAILY hydroxyzine HCl 25 mg PO BID PRN levothyroxine 50 mcg PO QAM 90 days olopatadine 0.1% 1 drp ophthalmic (eye) BID oxycodone 5 mg PO Q8H PRN pantoprazole 40 mg PO BID paroxetine HCl 10 mg PO DAILY 90 days polyethylene glycol 3350 17 grams PO DAILY promethazine 25 mg PO Q4-6H PRN [SHOWER CHAIR WITH BACK As directed] simethicone 125 mg PO BID-QID PRN triamcinolone acetonide 0.5% 1 appl topical BID 7 days Tobacco use date assessed: 09/12/22 Fall risk assessment: No Falls in past year Last assessed Fall Risk: 12/28/22 Dental Screening Dental Screen Date: 12/28/22 Did you have a dental visit in the last 12 months?: No Did you have a dental problem in the last 6 months where you did not have access to dental care?: No Was dental information given to patient?: No HPI 3 month f/u HPI Details 82-year-old female with hypercholesterolemia asthma hypertension GERD hypothyroidism and generalized anxiety disorder last seen in August 2022 blood work was requested. Patient is here for follow-up. Review of the notes September 21 was in the emergency room for fall complains of right side of her body pain right thoracic pain right lower back right hip and pelvic pain denies passing out or head trauma x-rays were negative patient was prescribed oxycodone. fell on the stairs- tripped - missed a step- states has not fallen before. dicsussed about preventive for fall - scatter rugs, no pets, grab bar, extension cord. noted weight loss, complains of JOHNSON no apetitte PFSH Medical History Asthma Bilateral femoral artery stenosis Colonoscopy refused GERD (gastroesophageal reflux disease) Hypercholesterolemia Hypertension Hypothyroid Knee osteoarthritis Surgical History History of surgery Family History (Updated 12/28/22 @ 15:22 by Vivien Bryant CMA) Family/Other Medical history unknown Social History Housing: Apartment Alcohol intake: never Patient Tobacco Use Status: Never used Tobacco Tobacco use type: Cigarette e-Cigarette/Vaping Use: Never Used Second Hand Smoke Exposure: No service: No Current occupational status: disabled Current occupational exposures/hazards: No Cognitive needs: No Hearing needs: No Vision needs: Yes Questionnaire PHQ-9 Over the last 2 weeks, how often have you been bothered by any of the following problems? 1. Little interest or pleasure in doing things: nearly every day (due to family emergency ) 2. Feeling down, depressed, or hopeless: nearly every day 3. Trouble falling or staying asleep, or sleeping too much: several days 4. Feeling tired or having little energy: several days 5. Poor appetite or overeating: nearly every day 6. Feeling bad about yourself - or that you are a failure or have let yourself or your family down: nearly every day 7. Trouble concentrating on things, such as reading the newspaper or watching television: nearly every day 8. Moving or speaking so slowly that other people could have noticed. Or the opposite - being so fidgety or restless that you have been moving around a lot more than usual: not at all 9. Thoughts that you would be better off or of hurting yourself in some way: not at all Total score: 17 Depression Screening Interpretation: Positive Source: Developed by Drs. Jose Anderson, Carrie Millard, Santi Frazier and colleagues, with an educational frank from [employer]. Thrive Questionnaire Date Thrive assessed: 06/13/22 AUDIT C Alcohol Use Questionnaire (AUDIT-C) 1. How often do you have a drink containing alcohol?: Never 2. How many drinks containing alcohol do you have on a typical day when you are drinking?: 1 or 2 (0) 3. How often do you have six or more drinks on one occasion?: Never Total Score: 0 RAMONA-7 AMB Questionnaire RAMONA-7 Date RAMONA - 7 assessed: 09/12/22 Source: Developed by Drs. Jose Anderson, Carrie Millard, Santi Frazier and colleagues, with an educational frank from [employer]. Physical exam (Primary Care) Vital Signs: Last Vital Signs Pulse 75 12/28/22 15:21 BP 140/82 H 12/28/22 15:21 Pulse Ox 95 12/28/22 15:21 Oxygen Delivery Method Room Air 12/28/22 15:21 BMI result Body Mass Index 23.2 Tobacco/Smoking Status: Tobacco use Status Tobacco use date assessed 09/12/22 12/28/22 15:22 Patient Tobacco Use Status Never used Tobacco 12/28/22 15:22 Tobacco use type Cigarette 12/28/22 15:22 e-Cigarette/Vaping Use Never Used 12/28/22 15:22 PHQ-9: PHQ-9 Score PHQ-9: Total score 17 12/28/22 15:29 Depression Screening Interpretation: Positive Thrive Assessment: Date of Thrive Assessment Date Thrive assessed 06/13/22 12/28/22 15:22 Const General: alert; No acute distress Eyes Conjunctivae: conjunctivae normal Resp Auscultation: clear to auscultation bilaterally Cardio Rate: regular rate Rhythm: regular rhythm GI Inspection: Yes normal to inspection Extrem General: Yes normal to inspection and No edema Assessment and Plan Assessment & Plan (1) Hyponatremia: Code(s): E87.1 - Hypo-osmolality and hyponatremia Plan: Patient on paroxetine will continue to monitor (2) Anemia: Code(s): D64.9 - Anemia, unspecified Plan: Chronic and stable- refused colon test (3) Generalized anxiety disorder: Comment: Patient follows up with [facility] Counseling Code(s): F41.1 - Generalized anxiety disorder Plan: Continue with medication presently and counseling (4) Hypothyroid: Code(s): E03.9 - Hypothyroidism, unspecified Qualifiers: Hypothyroidism type: acquired Qualified Code(s): E03.9 - Hypothyroidism, unspecified Plan: Continue with the thyroid medication but will need to have a retest (5) GERD (gastroesophageal reflux disease): Code(s): K21.9 - Gastro-esophageal reflux disease without esophagitis Qualifiers: Esophagitis presence: without esophagitis Qualified Code(s): K21.9 - Gastro-esophageal reflux disease without esophagitis Plan: Avoid the foods that causes that usually spicy foods, tomato products, juices, coffee, soda and foods that your sensitive to. After eating do not lie down, allow 3-4 hours before in lie down. And keep the head of bed above 30 degrees to avoid the acid from going up. (6) Hypertension: Code(s): I10 - Essential (primary) hypertension Qualifiers: Hypertension type: essential hypertension Qualified Code(s): I10 - Essential (primary) hypertension Plan: Continue with blood pressure medication. Decrease salt intake and exercise patient is on amlodipine 5 mg once a day (7) Hypercholesterolemia: Code(s): E78.00 - Pure hypercholesterolemia, unspecified Plan: Avoid fried foods, chicken skin, eggs, butter margarine, pastries and meat. Be it pork or beef they have a lot of cholesterol LDL goal of less than 130 and triglyceride of less than 150 patient is on atorvastatin 10 mg once a day (8) TSH elevation: Code(s): R79.89 - Other specified abnormal findings of blood chemistry Plan: Patient will need retesting. Orders: Orders Vitamin B12 and Folate Today D64.9 - Anemia, unspecified Comprehensive Met. Panel Today E87.1 - Hypo-osmolality and hyponatremia Ferritin Today D64.9 - Anemia, unspecified IRON PROFILE Today D64.9 - Anemia, unspecified Magnesium Today E03.9 - Hypothyroidism, unspecified Phosphorus Today E03.9 - Hypothyroidism, unspecified Free T4 (Free Thyroxine) Today E03.9 - Hypothyroidism, unspecified Thyroid Stimulating Hormone Today E03.9 - Hypothyroidism, unspecified Complete Blood Count Auto Diff Today E03.9 - Hypothyroidism, unspecified Reticulocyte Count Today D64.9 - Anemia, unspecified XR chest 2V Today J45.20 - Mild intermittent asthma, uncomplicated Medications: New dupilumab (Dupixent) allergy immunology 200 mg (1.34 mL) subcut Q2W 1.34 mL 0RF J45.20 - Mild intermittent asthma, uncomplicated Refilled alprazolam 1 mg PO BID 45 tabs 0RF 30 days F41.9 - Anxiety disorder, unspecified Coding Level of Care Code Est Pt Level 4 (68204) Diagnoses Hyponatremia E87.1 Anemia D64.9 Generalized anxiety disorder F41.1 Hypothyroid E03.9 Hypothyroidism type: acquired GERD (gastroesophageal reflux disease) K21.9 Esophagitis presence: without esophagitis Hypertension I10 Hypertension type: essential hypertension Hypercholesterolemia E78.00 TSH elevation R79.89
[2022-12-28 15:21] VITALS: BP 140/82; PULSE 75; O2SAT 95; BMI 23.2
== END 2022-12-28 16:19 | disposition home or self-care (01) ==
PROVIDERS: Visit Provider Internal Medicine
DX: I10 Essential (primary) hypertension (principal); E03.9 Hypothyroidism, unspecified; K21.9 Gastro-esophageal reflux disease without esophagitis; E87.1 Hypo-osmolality and hyponatremia; D64.9 Anemia, unspecified; F41.1 Generalized anxiety disorder; E78.00 Pure hypercholesterolemia, unspecified; R79.89 Other specified abnormal findings of blood chemistry
CPT/HCPCS: 99214

== ENCOUNTER 2023-05-23 15:04 | Outpatient (AMB) | payer MEDICARE, MEDICAID, SELFPAY ==
[2023-05-23 15:08] VITALS: BP 126/72; PULSE 76; O2SAT 99; BMI 23.2
--- NOTE | 2023-05-23 15:08 | A.OFFPC_ITS ---
Vital Signs 05/23/23 15:08 Height 4 ft 10 in Weight 111 lb BMI 23.2 BP 126/72 Blood Pressure Location Lt brachial Position Sitting Pulse 76 Pulse Source Pulse Oximeter Pulse Oximetry (%) 99 Oxygen Delivery Method Room Air Intake Visit Reasons: Med Refill Follow Up Hydro Plant Technician Required: No Brush Machine Setter: Not Required per policy Accompanied by: Self / Same As Patient Allergies penicillin G [Penicillin G] Allergy (Mild, Verified 05/23/23 15:09) VOMITING penicillin V Allergy (Unknown, Verified 05/23/23 15:09) hives Medication List - Last Reconciled 05/23/23 by Arlen Bray MD acetaminophen (Tylenol Extra Strength) 500 mg PO Q6H PRN albuterol sulfate 2.5 mg inhalation Q4-6H PRN albuterol sulfate 90 mcg/actuation (Ventolin HFA) 2 puffs inhalation Q4-6H PRN alprazolam 1 mg PO BID 30 days amlodipine 5 mg PO DAILY 90 days atorvastatin 10 mg PO DAILY blood pressure monitor (Blood Pressure Kit) As directed [CANE As directed] diclofenac sodium 1% (Voltaren Arthritis Pain) 4 grams topical QID 30 days docusate sodium (Colace) 200 mg (2 x 100 mg) PO DAILY 90 days dupilumab (Dupixent) 200 mg (1.34 mL) subcut Q2W fluticasone furoate-vilanterol 100-25 mcg/dose (Breo Ellipta) 1 inh inhalation DAILY fluticasone propionate 50 mcg/actuation (Flonase Allergy Relief) 2 sprays intranasal DAILY hydroxyzine HCl 25 mg PO BID PRN levothyroxine 50 mcg PO QAM 90 days olopatadine 0.1% 1 drp ophthalmic (eye) BID oxycodone 5 mg PO Q8H PRN pantoprazole 40 mg PO BID paroxetine HCl 10 mg PO DAILY 90 days polyethylene glycol 3350 17 grams PO DAILY promethazine 25 mg PO Q4-6H PRN [SHOWER CHAIR WITH BACK As directed] simethicone 125 mg PO BID-QID PRN triamcinolone acetonide 0.5% 1 appl topical BID 7 days Tobacco use date assessed: 05/23/23 Fall risk assessment: No Falls in past year Last assessed Fall Risk: 05/23/23 Dental Screening Dental Screen Date: 05/23/23 Did you have a dental visit in the last 12 months?: No Did you have a dental problem in the last 6 months where you did not have access to dental care?: No Was dental information given to patient?: Patient has dentist HPI Med Refill Follow Up HPI Details 82-year-old female with a history of YUNIER D asthma hypercholesterolemia hypothyroidism and generalized anxiety disorder last seen in November 2022. Patient is here for follow-up. Maura just did blood work for the ENT . dicusssed about blood work and the need to do this. L ear pain 1 months increasing severity, no discharge FORMERLY [facility] Medical History Asthma Bilateral femoral artery stenosis Colonoscopy refused GERD (gastroesophageal reflux disease) Hypercholesterolemia Hypertension Hypothyroid Knee osteoarthritis Surgical History History of surgery Family History Family/Other Medical history unknown Social History Housing: Apartment Alcohol intake: never Patient Tobacco Use Status: Never used Tobacco Tobacco use type: Cigarette e-Cigarette/Vaping Use: Never Used Second Hand Smoke Exposure: No service: No Current occupational status: disabled Current occupational exposures/hazards: No Cognitive needs: No Hearing needs: No Vision needs: Yes Questionnaire PHQ-9 Over the last 2 weeks, how often have you been bothered by any of the following problems? 1. Little interest or pleasure in doing things: nearly every day (due to family emergency ) 2. Feeling down, depressed, or hopeless: nearly every day 3. Trouble falling or staying asleep, or sleeping too much: several days 4. Feeling tired or having little energy: several days 5. Poor appetite or overeating: nearly every day 6. Feeling bad about yourself - or that you are a failure or have let yourself or your family down: nearly every day 7. Trouble concentrating on things, such as reading the newspaper or watching television: nearly every day 8. Moving or speaking so slowly that other people could have noticed. Or the opposite - being so fidgety or restless that you have been moving around a lot more than usual: not at all 9. Thoughts that you would be better off or of hurting yourself in some way: not at all Total score: 17 Depression Screening Interpretation: Positive Depression Screening Done: Yes Source: Developed by Drs. Jose Anderson, Carrie Millard, Santi Frazier and colleagues, with an educational frank from [employer]. Thrive Questionnaire Date Thrive assessed: 05/23/23 I am a: Patient What is your living situation today?: I have a steady place to live Within the past 12 months, did the food you bought not last and you didn't have the money to get more?: Never true Within the past 12 months, did you worry whether your food would run out before you got money to buy more?: Never true Do you have trouble paying for medicines?: No Do you have trouble getting transportation to medical appointments?: No Do you have trouble paying your heating and electricity bill?: No Do you have trouble taking care of your child, family member or friend?: No Do you have trouble with day-to-day activities such as bathing, preparing meals, shopping, managing finances, etc.?: No Are you currently unemployed and looking for a job?: No Are you interested in more education?: No Please select the resources that you would like help with: None THRIVE Score: 0 AUDIT C Alcohol Use Questionnaire (AUDIT-C) 1. How often do you have a drink containing alcohol?: Never 2. How many drinks containing alcohol do you have on a typical day when you are drinking?: 1 or 2 (0) 3. How often do you have six or more drinks on one occasion?: Never Total Score: 0 RAMONA-7 AMB Questionnaire RAMONA-7 Date RAMONA - 7 assessed: 05/23/23 Feeling nervous, anxious, or on edge: 0 = Not at all Not being able to stop or control worryin = Not at all Worrying too much about different things: 0 = Not at all Trouble relaxin = Not at all Being so restless that it is hard to sit still: 0 = Not at all Becoming easily annoyed or irritable: 0 = Not at all Feeling afraid as if something awful might happen: 0 = Not at all Total RAMONA-7 score (0-4 normal; 5-9 mild; 10-14 moderate; 15-21 severe): 0 Source: Developed by Drs. Jose Anderson, Carrie Millard, Santi Frazier and colleagues, with an educational frank from [employer]. Physical exam (Primary Care) Vital Signs: Oxygen Delivery Method Room Air 05/23/23 15:08 Tobacco/Smoking Status: Tobacco use Status Tobacco use date assessed 05/23/23 05/23/23 15:10 Patient Tobacco Use Status Never used Tobacco 05/23/23 15:10 Tobacco use type Cigarette 05/23/23 15:10 e-Cigarette/Vaping Use Never Used 05/23/23 15:10 PHQ-9: PHQ-9 Score PHQ-9: Total score 17 05/23/23 15:10 Depression Screening Interpretation: Positive Thrive Assessment: Date of Thrive Assessment Date Thrive assessed 05/23/23 05/23/23 15:10 Const General: alert; No acute distress HENMT Other: Bilateral impacted cerumen Eyes Conjunctivae: conjunctivae normal Resp Auscultation: clear to auscultation bilaterally Cardio Rate: regular rate Rhythm: regular rhythm GI Inspection: Yes normal to inspection Extrem General: Yes normal to inspection and No edema Assessment and Plan Assessment & Plan (1) Hypercholesterolemia: Code(s): E78.00 - Pure hypercholesterolemia, unspecified Plan: Avoid fried foods, chicken skin, eggs, butter margarine, pastries and meat. Be it pork or beef they have a lot of cholesterol LDL goal of less than 130 and triglyceride of less than 150. Patient on atorvastatin 10 mg once a day (2) Asthma: Code(s): J45.909 - Unspecified asthma, uncomplicated Qualifiers: Asthma complication type: uncomplicated Asthma persistence: intermittent Asthma severity: mild Qualified Code(s): J45.20 - Mild intermittent asthma, uncomplicated Plan: Continue with inhaler as needed presently on Dupixent and Breo (3) Hypertension: Code(s): I10 - Essential (primary) hypertension Qualifiers: Hypertension type: essential hypertension Qualified Code(s): I10 - Essential (primary) hypertension Plan: Continue with blood pressure medication. Decrease salt intake and exercise pa tient takes amlodipine 5 mg once a day (4) GERD (gastroesophageal reflux disease): Code(s): K21.9 - Gastro-esophageal reflux disease without esophagitis Qualifiers: Esophagitis presence: without esophagitis Qualified Code(s): K21.9 - Gastro-esophageal reflux disease without esophagitis Plan: Avoid the foods that causes that usually spicy foods, tomato products, juices, coffee, soda and foods that your sensitive to. After eating do not lie down, allow 3-4 hours before in lie down. And keep the head of bed above 30 degrees to avoid the acid from going up. (5) Hypothyroid: Code(s): E03.9 - Hypothyroidism, unspecified Qualifiers: Hypothyroidism type: acquired Qualified Code(s): E03.9 - Hypothyroidism, unspecified Plan: Continue with thyroid medication but will need a repeat testing (6) Fatty liver: Code(s): K76.0 - Fatty (change of) liver, not elsewhere classified Plan: Low-fat diet and exercise (7) Generalized anxiety disorder: Comment: Patient follows up with [facility] Code(s): F41.1 - Generalized anxiety disorder Plan: Continue with counseling and therapy (8) Impacted cerumen of both ears: Code(s): H61.23 - Impacted cerumen, bilateral Plan: will need ear irrigation Medications: New carbamide peroxide 6.5% (Debrox) 5 drps otic (ears) DAILY 15 mL 0RF 4 days H61.23 - Impacted cerumen, bilateral Refilled fluticasone propionate 50 mcg/actuation (Flonase Allergy Relief) administer into each nostril 2 sprays intranasal DAILY 16 grams 8RF alprazolam 1 mg PO BID 30 days 45 tabs 0RF F41.9 - Anxiety disorder, unspecified Coding Level of Care Code Est Pt Level 4 (09269) Diagnoses Hypercholesterolemia E78.00 Mild intermittent asthma without complication J45.20 Asthma complication type: uncomplicated Asthma persistence: intermittent Asthma severity: mild Essential hypertension I10 Hypertension type: essential hypertension Gastroesophageal reflux disease without esophagitis K21.9 Esophagitis presence: without esophagitis Acquired hypothyroidism E03.9 Hypothyroidism type: acquired Fatty liver K76.0 Generalized anxiety disorder F41.1 Impacted cerumen of both ears H61.23
== END 2023-05-23 15:37 | disposition home or self-care (01) ==
PROVIDERS: PCP Internal Medicine; Visit Provider Internal Medicine
DX: E78.00 Pure hypercholesterolemia, unspecified (principal); J45.20 Mild intermittent asthma, uncomplicated; I10 Essential (primary) hypertension; K21.9 Gastro-esophageal reflux disease without esophagitis; E03.9 Hypothyroidism, unspecified; K76.0 Fatty (change of) liver, not elsewhere classified; F41.1 Generalized anxiety disorder; H61.23 Impacted cerumen, bilateral
CPT/HCPCS: 99214

== ENCOUNTER 2023-05-29 12:11 | Outpatient (REF) | payer MEDICARE, MEDICAID, SELFPAY ==
[2023-05-29 12:46] LABS: MANUAL DIFF FLAG NO
[2023-05-29 13:45] LABS: Basophils Absolute Auto 0.1 X10*3/uL (0.0-0.2); Eosinophils Absolute Auto 0.3 X10*3/uL (0.0-0.4); Eosinophils Percent Auto 4.9 % (0-4); Hemoglobin 11.1 g/dl (12.0-16.0); Imm Gran Abs Auto 0.01 X10*3/uL (0.00-0.03); Imm Gran Pct Auto 0.2 % (0.0-0.4); Immature Retic Fraction 9.5 % (3.0-15.9); Lymphocytes Absolute Auto 2.8 X10*3/uL (1.2-4.9); Mean Corpuscular HGB Conc 32.6 g/dl (31.0-35.0); Mean Corpuscular Hemoglobin 29.6 pg (27.0-33.0); Mean Corpuscular Volume 90.7 fL (80.0-98.0); Monocytes Absolute Auto 0.6 X10*3/uL (0.1-1.2); Monocytes Percent Auto 10.2 % (2-11); Neutrophils Absolute Auto 2.4 x10*3/uL (2.0-8.3); Neutrophils Percent Auto 38.7 % (45-73); Platelet Count 302 X10*3/uL (160-400); Red Blood Count 3.75 X10*6/uL (4.20-5.50); Red Cell Distribution Width 12.5 % (11.0-16.0); Retic HGB Equivalent 34.2 pg (30.0-35.0); Reticulocytes Absolute 0.075 X10*6/uL (0.026-0.095); White Blood Count 6.3 X10*3/uL (4.8-10.8)
[2023-05-29 14:16] LABS: Alanine Aminotransferase 28 U/L (0-31); Albumin Level 3.9 g/dL (3.5-5.0); Alkaline Phosphatase 98 U/L (39-117); Anion Gap 9 (12-20); Aspartate Amino Transferase 55 U/L (5-31); Bilirubin Total 0.3 mg/dL (0.0-1.0); Blood Urea Nitrogen 19 mg/dL (9-16); Calcium 9.8 mg/dL (8.4-10.2); Carbon Dioxide 28 mmol/L (22-29); Chloride 99 mmol/L (96-108); Cholesterol 137 mg/dL (<200); Estimated Glomerular Filt Rate > 60; Glucose Random 91 mg/dL (60-115); HDL Cholesterol 33 mg/dL (>40); Iron 50 mcg/dL (30-160); LDL Cholesterol Calculated 78 mg/dL (<100); Magnesium 1.9 mg/dL (1.6-2.6); Percent Iron Saturation 20 % (15-50); Phosphorus 3.9 mg/dL (2.7-4.5); Potassium 4.6 mmol/L (3.3-5.1); Sodium 131 mmol/L (135-145); Total Iron Binding Capacity 254 mcg/dL (228-428); Total Protein 9.4 g/dL (6.5-8.0); Triglycerides 130 mg/dL (<150); Unsaturated Iron Binding 204 ug/dL
[2023-05-29 14:32] LABS: Ferritin 141 ng/mL (10-250); Free T4 (Free Thyroxine) 0.65 ng/dL (0.71-1.85); Thyroid Stimulating Hormone 5.76 uIU/mL (0.32-4.0)
[2023-05-29 14:41] LABS: Folate 14.2 ng/mL (> or = 4.0); Vitamin B12 844 pg/mL (200-900)
== END 2023-05-29 12:12 | disposition home or self-care (01) ==
LOC: HO.LAB 12:11
PROVIDERS: PCP Internal Medicine; Visit Provider Internal Medicine
DX: E03.9 Hypothyroidism, unspecified (principal); D64.9 Anemia, unspecified; E78.00 Pure hypercholesterolemia, unspecified; E87.1 Hypo-osmolality and hyponatremia
CPT/HCPCS: 36415; 80053; 80061; 82607; 82728; 82746; 83540; 83735; 84100; 84439; 84443; 85025; 85045

== ENCOUNTER → 2023-05-30 11:50 | Outpatient (AMB) | payer MEDICARE, MEDICAID, SELFPAY ==
--- NOTE | 2023-05-30 11:55 | MHC.PC.OV ---
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 FORMERLY [facility] Medical History Asthma Bilateral femoral artery stenosis Colonoscopy refused GERD (gastroesophageal reflux disease) Hypercholesterolemia Hypertension Hypothyroid Knee osteoarthritis Surgical History History of surgery Family History Family/Other Medical history unknown Social History Housing: Apartment Alcohol intake: never Patient Tobacco Use Status: Never used Tobacco Tobacco use type: Cigarette e-Cigarette/Vaping Use: Never Used Second Hand Smoke Exposure: No service: No Current occupational status: disabled Current occupational exposures/hazards: No Cognitive needs: No Hearing needs: No Vision needs: Yes Questionnaire Thrive Questionnaire Date Thrive assessed: 05/23/23 AUDIT C Alcohol Use Questionnaire (AUDIT-C) 1. How often do you have a drink containing alcohol?: Never 2. How many drinks containing alcohol do you have on a typical day when you are drinking?: 1 or 2 (0) 3. How often do you have six or more drinks on one occasion?: Never Total Score: 0 RAMONA-7 AMB Questionnaire RAMONA-7 Date RAMONA - 7 assessed: 05/23/23 Source: Developed by Drs. Jose Anderson, Carrie Millard, Santi Frazier and colleagues, with an educational frank from [employer]. Physical exam (Primary Care) Vital Signs: Last Vital Signs Pulse 80 05/30/23 11:56 BP 138/72 05/30/23 11:56 Pulse Ox 98 05/30/23 11:56 Oxygen Delivery Method Room Air 05/30/23 11:56 BMI result Body Mass Index 23.0 Tobacco/Smoking Status: Tobacco use Status Tobacco use date assessed 05/30/23 05/30/23 11:58 Patient Tobacco Use Status Never used Tobacco 05/30/23 11:58 Tobacco use type Cigarette 05/30/23 11:58 e-Cigarette/Vaping Use Never Used 05/30/23 11:58 Thrive Assessment: Date of Thrive Assessment Date Thrive assessed 05/23/23 05/30/23 11:58 Const Other: Bilateral impacted cerumen Office Procedures Cerumen Removal From which ear canal was the cerumen removed: bilateral Removal: irrigation, otoscope w/curette, cerumen loop/spoon and other Notes: patient tolerated procedure well, no complications and ear canal clear [id number] Irrigation/Lavage Assessment and Plan Assessment & Plan (1) Impacted cerumen of both ears: Code(s): H61.23 - Impacted cerumen, bilateral Plan: TM intact and irrgation and scoop used Coding Level of Care Code Est Pt Level 3 (88676) Diagnoses Impacted cerumen of both ears H61.23 CPT Codes Office Procedure - CPT: 05518-Hgc Irrigation/Lavage ([id number])
[2023-05-30 11:56] VITALS: BP 138/72; PULSE 80; O2SAT 98; BMI 23.0
== END ==
PROVIDERS: PCP Internal Medicine; Visit Provider Internal Medicine
DX: H61.23 Impacted cerumen, bilateral (principal)
CPT/HCPCS: 69210; 99213

== ENCOUNTER 2023-06-11 14:17 | Outpatient (AMB) | payer MEDICARE, MEDICAID, SELFPAY ==
[2023-06-11 14:19] VITALS: BP 144/68; PULSE 85; O2SAT 97; BMI 23.0
--- NOTE | 2023-06-11 14:19 | MHC.PC.OV ---
Vital Signs 06/11/23 14:19 Height 4 ft 10 in Weight 110 lb BMI 23.0 BP 144/68 H Blood Pressure Location Lt brachial Position Sitting Pulse 85 Pulse Source Pulse Oximeter Pulse Oximetry (%) 97 Oxygen Delivery Method Room Air Intake Visit Reasons: follow up. 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 Allergies penicillin G [Penicillin G] Allergy (Mild, Verified 06/11/23 14:19) VOMITING penicillin V Allergy (Unknown, Verified 06/11/23 14:19) hives Medication List - Last Reconciled 06/11/23 by Arlen Bray MD acetaminophen (Tylenol Extra Strength) 500 mg PO Q6H PRN albuterol sulfate 2.5 mg inhalation Q4-6H PRN albuterol sulfate 90 mcg/actuation (Ventolin HFA) 2 puffs inhalation Q4-6H PRN alprazolam 1 mg PO BID 30 days amlodipine 5 mg PO DAILY 90 days atorvastatin 10 mg PO DAILY blood pressure monitor (Blood Pressure Kit) As directed [CANE As directed] carbamide peroxide 6.5% (Debrox) 5 drps otic (ears) DAILY 4 days cyclobenzaprine 5 mg PO TID PRN diclofenac sodium 1% (Voltaren Arthritis Pain) 4 grams topical QID 30 days docusate sodium (Colace) 200 mg (2 x 100 mg) PO DAILY 90 days dupilumab (Dupixent) 200 mg (1.34 mL) subcut Q2W fluticasone furoate-vilanterol 100-25 mcg/dose (Breo Ellipta) 1 inh inhalation DAILY fluticasone propionate 50 mcg/actuation (Flonase Allergy Relief) 2 sprays intranasal DAILY hydroxyzine HCl 25 mg PO BID PRN levothyroxine 75 mcg PO QAM 90 days olopatadine 0.1% 1 drp ophthalmic (eye) BID oxycodone 5 mg PO Q8H PRN pantoprazole 40 mg PO BID paroxetine HCl 10 mg PO DAILY 90 days polyethylene glycol 3350 17 grams PO DAILY promethazine 25 mg PO Q4-6H PRN [SHOWER CHAIR WITH BACK As directed] simethicone 125 mg PO BID-QID PRN triamcinolone acetonide 0.5% 1 appl topical BID 7 days Tobacco use date assessed: 06/11/23 Fall risk assessment: No Falls in past year Last assessed Fall Risk: 06/11/23 Dental Screening Dental Screen Date: 06/11/23 HPI follow up. HPI Details 82-year-old female with hypercholesterolemia asthma hypertension GERD hypothyroidism generalized anxiety disorder last seen for the impacted cerumen in April here for follow-up. Patient's mammogram is due. asthma is good and has not been using the inhaler. complains of neck pain PFSH Medical History Asthma Bilateral femoral artery stenosis Colonoscopy refused GERD (gastroesophageal reflux disease) Hypercholesterolemia Hypertension Hypothyroid Knee osteoarthritis Surgical History History of surgery Family History Family/Other Medical history unknown Social History Housing: Apartment Alcohol intake: never Patient Tobacco Use Status: Never used Tobacco Tobacco use type: Cigarette e-Cigarette/Vaping Use: Never Used Second Hand Smoke Exposure: No service: No Current occupational status: disabled Current occupational exposures/hazards: No Cognitive needs: No Hearing needs: No Vision needs: Yes Questionnaire Thrive Questionnaire Date Thrive assessed: 05/23/23 AUDIT C Alcohol Use Questionnaire (AUDIT-C) 1. How often do you have a drink containing alcohol?: Never 2. How many drinks containing alcohol do you have on a typical day when you are drinking?: 1 or 2 (0) 3. How often do you have six or more drinks on one occasion?: Never Total Score: 0 RAMONA-7 AMB Questionnaire RAMONA-7 Date RAMONA - 7 assessed: 05/23/23 Source: Developed by Drs. Jose Anderson, Carrie Millard, Santi Frazier and colleagues, with an educational frank from [employer]. Physical exam (Primary Care) Vital Signs: Last Vital Signs Pulse 85 06/11/23 14:19 BP 144/68 H 06/11/23 14:19 Pulse Ox 97 06/11/23 14:19 Oxygen Delivery Method Room Air 06/11/23 14:19 BMI result Body Mass Index 23.0 Tobacco/Smoking Status: Tobacco use Status Tobacco use date assessed 06/11/23 06/11/23 14:25 Patient Tobacco Use Status Never used Tobacco 06/11/23 14:25 Tobacco use type Cigarette 06/11/23 14:25 e-Cigarette/Vaping Use Never Used 06/11/23 14:25 Thrive Assessment: Date of Thrive Assessment Date Thrive assessed 05/23/23 06/11/23 14:25 Const General: alert; No acute distress Eyes Conjunctivae: conjunctivae normal Resp Auscultation: clear to auscultation bilaterally Cardio Rate: regular rate Rhythm: regular rhythm GI Inspection: Yes normal to inspection Extrem General: Yes normal to inspection and No edema Assessment and Plan Assessment & Plan (1) Hypercholesterolemia: Code(s): E78.00 - Pure hypercholesterolemia, unspecified Plan: Avoid fried foods, chicken skin, eggs, butter margarine, pastries and meat. Be it pork or beef they have a lot of cholesterol presently on atorvastatin LDL goal of less than 130 and triglyceride of less than 150 (2) Hypertension: Code(s): I10 - Essential (primary) hypertension Qualifiers: Hypertension type: essential hypertension Qualified Code(s): I10 - Essential (primary) hypertension Plan: Continue with blood pressure medication. Decrease salt intake and exercise taking amlodipine 5 mg once a day (3) Asthma: Code(s): J45.909 - Unspecified asthma, uncomplicated Qualifiers: Asthma severity: mild Asthma persistence: intermittent Asthma complication type: uncomplicated Qualified Code(s): J45.20 - Mild intermittent asthma, uncomplicated Plan: Patient on Dupixent continue with the inhalers. This is controlled patient has not been using the rescue inhaler (4) GERD (gastroesophageal reflux disease): Code(s): K21.9 - Gastro-esophageal reflux disease without esophagitis Qualifiers: Esophagitis presence: without esophagitis Qualified Code(s): K21.9 - Gastro-esophageal reflux disease without esophagitis Plan: Avoid the foods that causes that usually spicy foods, tomato products, juices, coffee, soda and foods that your sensitive to. After eating do not lie down, allow 3-4 hours before in lie down. And keep the head of bed above 30 degrees to avoid the acid from going up. (5) Hypothyroid: Code(s): E03.9 - Hypothyroidism, unspecified Qualifiers: Hypothyroidism type: acquired Qualified Code(s): E03.9 - Hypothyroidism, unspecified Plan: Continue with thyroid medication (6) Generalized anxiety disorder: Comment: Patient follows up with [facility] Code(s): F41.1 - Generalized anxiety disorder Plan: Continue with counseling and therapy (7) Neck pain: Code(s): M54.2 - Cervicalgia Plan: Heat as well as exercises and stretches will help. Muscle relaxant given and was discussed about the side effects of drowsiness Medications: New cyclobenzaprine 5 mg PO TID PRN 60 tabs 0RF muscle spasm M54.2 - Cervicalgia cyclobenzaprine 5 mg PO TID PRN 60 tabs 0RF muscle spasm M54.2 - Cervicalgia Coding Level of Care Code Est Pt Level 4 (43153) Diagnoses Hypercholesterolemia E78.00 Essential hypertension I10 Hypertension type: essential hypertension Mild intermittent asthma without complication J45.20 Asthma severity: mild Asthma persistence: intermittent Asthma complication type: uncomplicated Gastroesophageal reflux disease without esophagitis K21.9 Esophagitis presence: without esophagitis Acquired hypothyroidism E03.9 Hypothyroidism type: acquired Generalized anxiety disorder F41.1 Neck pain M54.2
== END 2023-06-11 15:00 | disposition home or self-care (01) ==
PROVIDERS: PCP Internal Medicine; Visit Provider Internal Medicine
DX: E78.00 Pure hypercholesterolemia, unspecified (principal); I10 Essential (primary) hypertension; J45.20 Mild intermittent asthma, uncomplicated; K21.9 Gastro-esophageal reflux disease without esophagitis; E03.9 Hypothyroidism, unspecified; F41.1 Generalized anxiety disorder; M54.2 Cervicalgia
CPT/HCPCS: 99214

== ENCOUNTER 2023-07-20 10:51 | Outpatient (AMB) | payer MEDICARE, MEDICAID, SELFPAY ==
--- NOTE | 2023-07-20 10:55 | MHC.PC.OV ---
Vital Signs 07/20/23 10:56 Height 4 ft 10 in Weight 110 lb 6 oz BMI 23.1 BP 122/64 Blood Pressure Location Rt brachial Position Sitting Pulse 56 Pulse Source Pulse Oximeter Pulse Oximetry (%) 97 Oxygen Delivery Method Room Air Intake Visit Reasons: Med Follow up Intake Note: Patient is here to follow up on medication review and lab results. Agricultural Produce Washer Required: Yes Agricultural Produce Washer Language: Integrity Analyst Name: Al (son) Information Interpreted: non-clinical & clinical Endocrinology Specialist: Present Accompanied by: Son Allergies penicillin G [Penicillin G] Allergy (Mild, Verified 07/20/23 10:56) VOMITING penicillin V Allergy (Unknown, Verified 07/20/23 10:56) hives Tobacco use date assessed: 07/20/23 Fall risk assessment: No Falls in past year Last assessed Fall Risk: 07/20/23 Dental Screening Dental Screen Date: 07/20/23 Did you have a dental visit in the last 12 months?: Yes Did you have a dental problem in the last 6 months where you did not have access to dental care?: No Was dental information given to patient?: Patient has dentist HPI Med Follow up HPI Details 82-year-old female with hypertension hypercholesterolemia asthma GERD hypothyroidism generalized anxiety disorder last seen in May 2023. Patient is here for follow-up last blood work was done in April 2023 showing mild anemia PFSH Medical History Asthma Bilateral femoral artery stenosis Colonoscopy refused GERD (gastroesophageal reflux disease) Hypercholesterolemia Hypertension Hypothyroid Knee osteoarthritis Surgical History History of surgery Family History Family/Other Medical history unknown Social History Housing: Apartment Alcohol intake: never Patient Tobacco Use Status: Never used Tobacco Tobacco use type: Cigarette e-Cigarette/Vaping Use: Never Used Second Hand Smoke Exposure: No service: No Current occupational status: disabled Current occupational exposures/hazards: No Cognitive needs: No Hearing needs: No Vision needs: Yes Questionnaire Thrive Questionnaire Date Thrive assessed: 05/23/23 RAMONA-7 AMB Questionnaire RAMONA-7 Date RAMONA - 7 assessed: 05/23/23 Source: Developed by Drs. Jose Anderson, Carrie Millard, Santi Frazier and colleagues, with an educational frank from [employer]. Physical exam (Primary Care) Vital Signs: Last Vital Signs Pulse 56 07/20/23 10:56 BP 122/64 07/20/23 10:56 Pulse Ox 97 07/20/23 10:56 Oxygen Delivery Method Room Air 07/20/23 10:56 BMI result Body Mass Index 23.1 Tobacco/Smoking Status: Tobacco use Status Tobacco use date assessed 07/20/23 07/20/23 11:01 Patient Tobacco Use Status Never used Tobacco 07/20/23 11:01 Tobacco use type Cigarette 07/20/23 11:01 e-Cigarette/Vaping Use Never Used 07/20/23 11:01 Thrive Assessment: Date of Thrive Assessment Date Thrive assessed 05/23/23 07/20/23 11:01 Const General: alert; No acute distress Eyes Conjunctivae: conjunctivae normal Resp Auscultation: clear to auscultation bilaterally Cardio Rate: regular rate Rhythm: regular rhythm GI Inspection: Yes normal to inspection Extrem General: Yes normal to inspection and No edema Assessment and Plan Assessment & Plan (1) Anemia: Code(s): D64.9 - Anemia, unspecified Plan: Continue to monitor. Anemia of chronic disease (2) Hypothyroid: Code(s): E03.9 - Hypothyroidism, unspecified Qualifiers: Hypothyroidism type: acquired Qualified Code(s): E03.9 - Hypothyroidism, unspecified Plan: Continue with thyroid medication but advised to get blood work done again (3) Hypertension: Code(s): I10 - Essential (primary) hypertension Qualifiers: Hypertension type: essential hypertension Qualified Code(s): I10 - Essential (primary) hypertension Plan: Continue with blood pressure medication. Decrease salt intake and exercise on amlodipine 5 mg once a day (4) Generalized anxiety disorder: Comment: Patient follows up with [facility] Code(s): F41.1 - Generalized anxiety disorder Plan: Continue with counseling and therapy takes paroxetine 10 mg once a day hydroxyzine and alprazolam (5) GERD (gastroesophageal reflux disease): Code(s): K21.9 - Gastro-esophageal reflux disease without esophagitis Qualifiers: Esophagitis presence: without esophagitis Qualified Code(s): K21.9 - Gastro-esophageal reflux disease without esophagitis Plan: Avoid the foods that causes that usually spicy foods, tomato products, juices, coffee, soda and foods that your sensitive to. After eating do not lie down, allow 3-4 hours before in lie down. And keep the head of bed above 30 degrees to avoid the acid from going up. Medications: Refilled alprazolam 1 mg PO BID 30 days 45 tabs 0RF F41.9 - Anxiety disorder, unspecified Discontinued oxycodone Partial Fill upon patient request. Discontinued Reason: Doctor's Order 5 mg PO Q8H PRN 10 tabs 0RF pain Coding Level of Care Code Est Pt Level 4 (67062) Diagnoses Anemia D64.9 Acquired hypothyroidism E03.9 Hypothyroidism type: acquired Essential hypertension I10 Hypertension type: essential hypertension Generalized anxiety disorder F41.1 Gastroesophageal reflux disease without esophagitis K21.9 Esophagitis presence: without esophagitis
[2023-07-20 10:56] VITALS: BP 122/64; PULSE 56; O2SAT 97; BMI 23.1
== END 2023-07-20 11:27 | disposition home or self-care (01) ==
PROVIDERS: PCP Internal Medicine; Visit Provider Internal Medicine
DX: D64.9 Anemia, unspecified (principal); E03.9 Hypothyroidism, unspecified; I10 Essential (primary) hypertension; F41.1 Generalized anxiety disorder; K21.9 Gastro-esophageal reflux disease without esophagitis
CPT/HCPCS: 99214

== ENCOUNTER 2023-07-20 11:36 | Outpatient (REF) | payer MEDICARE, MEDICAID, SELFPAY ==
[2023-07-20 13:49] LABS: Free T4 (Free Thyroxine) 0.82 ng/dL (0.71-1.85); Thyroid Stimulating Hormone 6.16 uIU/mL (0.32-4.0)
== END 2023-07-20 11:37 | disposition home or self-care (01) ==
LOC: HO.LAB 11:36
PROVIDERS: PCP Internal Medicine; Visit Provider Internal Medicine
DX: E03.9 Hypothyroidism, unspecified (principal)
CPT/HCPCS: 36415; 84439; 84443

== ENCOUNTER 2023-09-18 08:25 | Outpatient (REF) | payer MEDICARE, MEDICAID, SELFPAY ==
[2023-09-18 10:04] LABS: Free T4 (Free Thyroxine) 1.31 ng/dL (0.71-1.85)
== END 2023-09-18 08:26 | disposition home or self-care (01) ==
LOC: HO.LAB 08:25
PROVIDERS: PCP Internal Medicine; Visit Provider Internal Medicine
DX: R79.89 Other specified abnormal findings of blood chemistry (principal)
CPT/HCPCS: 36415; 84439; 84443

== ENCOUNTER 2023-09-19 10:36 | Outpatient (AMB) | payer MEDICARE, MEDICAID, SELFPAY ==
[2023-09-19 10:57] VITALS: BP 136/62; PULSE 70; O2SAT 97; BMI 22.6
--- NOTE | 2023-09-19 10:57 | A.OFFPC_ITS ---
Vital Signs 09/19/23 10:57 Height 4 ft 10 in Weight 108 lb BMI 22.6 BP 136/62 Blood Pressure Location Lt brachial Position Sitting Pulse 70 Pulse Source Pulse Oximeter Pulse Oximetry (%) 97 Oxygen Delivery Method Room Air Intake Visit Reasons: Med Follow Up Allergies penicillin G [Penicillin G] Allergy (Mild, Verified 09/19/23 10:58) VOMITING penicillin V Allergy (Unknown, Verified 09/19/23 10:58) hives Tobacco use date assessed: 07/20/23 Fall risk assessment: No Falls in past year Last assessed Fall Risk: 09/19/23 Dental Screening Dental Screen Date: 09/19/23 Did you have a dental visit in the last 12 months?: Yes Did you have a dental problem in the last 6 months where you did not have access to dental care?: No Was dental information given to patient?: Patient has dentist HPI Med Follow Up HPI Details 82-year-old female with hypothyroidism h ypertension generalized anxiety disorder GERD and anemia last seen in June 2023 coming in for follow-up. [facility] Medical History Asthma Bilateral femoral artery stenosis Colonoscopy refused GERD (gastroesophageal reflux disease) Hypercholesterolemia Hypertension Hypothyroid Knee osteoarthritis Surgical History History of surgery Family History Family/Other Medical history unknown Social History Housing: Apartment Alcohol intake: never Patient Tobacco Use Status: Never used Tobacco Tobacco use type: Cigarette e-Cigarette/Vaping Use: Never Used Second Hand Smoke Exposure: No service: No Current occupational status: disabled Current occupational exposures/hazards: No Cognitive needs: No Hearing needs: No Vision needs: Yes Questionnaire PHQ-9 Over the last 2 weeks, how often have you been bothered by any of the following problems? 1. Little interest or pleasure in doing things: nearly every day (due to family emergency ) 2. Feeling down, depressed, or hopeless: nearly every day 3. Trouble falling or staying asleep, or sleeping too much: several days 4. Feeling tired or having little energy: several days 5. Poor appetite or overeating: nearly every day 6. Feeling bad about yourself - or that you are a failure or have let yourself or your family down: nearly every day 7. Trouble concentrating on things, such as reading the newspaper or watching television: nearly every day 8. Moving or speaking so slowly that other people could have noticed. Or the opposite - being so fidgety or restless that you have been moving around a lot more than usual: not at all 9. Thoughts that you would be better off or of hurting yourself in some way: not at all Total score: 17 Depression Screening Interpretation: Positive Depression Screening Done: Yes Source: Developed by Drs. Jose Anderson, Carrie Millard, Santi Frazier and colleagues, with an educational frank from [employer]. Thrive Questionnaire Date Thrive assessed: 05/23/23 AUDIT C Alcohol Use Questionnaire (AUDIT-C) 1. How often do you have a drink containing alcohol?: Never 2. How many drinks containing alcohol do you have on a typical day when you are drinking?: 1 or 2 (0) 3. How often do you have six or more drinks on one occasion?: Never Total Score: 0 RAMONA-7 AMB Questionnaire RAMONA-7 Date RAMONA - 7 assessed: 05/23/23 Source: Developed by Drs. Jose Anderson, Carrie Millard, Santi Frazier and colleagues, with an educational frank from [employer]. Physical exam (Primary Care) Vital Signs: Last Vital Signs Pulse 70 09/19/23 10:57 BP 136/62 09/19/23 10:57 Pulse Ox 97 09/19/23 10:57 Oxygen Delivery Method Room Air 09/19/23 10:57 BMI result Body Mass Index 22.6 Tobacco/Smoking Status: Tobacco use Status Tobacco use date assessed 07/20/23 09/19/23 10:59 Patient Tobacco Use Status Never used Tobacco 09/19/23 10:59 Tobacco use type Cigarette 09/19/23 10:59 e-Cigarette/Vaping Use Never Used 09/19/23 10:59 PHQ-9: PHQ-9 Score PHQ-9: Total score 17 09/19/23 11:03 Depression Screening Interpretation: Positive Thrive Assessment: Date of Thrive Assessment Date Thrive assessed 05/23/23 09/19/23 10:59 Const General: alert; No acute distress Eyes Conjunctivae: conjunctivae normal Resp Auscultation: clear to auscultation bilaterally Cardio Rate: regular rate Rhythm: regular rhythm GI Inspection: Yes normal to inspection Extrem General: Yes normal to inspection and No edema Assessment and Plan Assessment & Plan (1) Hypercholesterolemia: Code(s): E78.00 - Pure hypercholesterolemia, unspecified Plan: Avoid fried foods, chicken skin, eggs, butter margarine, pastries and meat. Be it pork or beef they have a lot of cholesterol on atorvastatin 10 mg once a day LDL goal of less than 130 and triglyceride of less than 150 April 2023 last blood work (2) Hypertension: Code(s): I10 - Essential (primary) hypertension Qualifiers: Hypertension type: essential hypertension Qualified Code(s): I10 - Essential (primary) hypertension Plan: Continue with blood pressure medication. Decrease salt intake and exercise on amlodipine 5 mg once a day blood pressure is under control (3) Hypothyroid: Code(s): E03.9 - Hypothyroidism, unspecified Qualifiers: Hypothyroidism type: acquired Qualified Code(s): E03.9 - Hypothyroidism, unspecified Plan: Continue with thyroid medication retesting within normal limits. (4) GERD (gastroesophageal reflux disease): Code(s): K21.9 - Gastro-esophageal reflux disease without esophagitis Qualifiers: Esophagitis presence: without esophagitis Qualified Code(s): K21.9 - Gastro-esophageal reflux disease without esophagitis Plan: Avoid the foods that causes that usually spicy foods, tomato products, juices, coffee, soda and foods that your sensitive to. After eating do not lie down, allow 3-4 hours before in lie down. And keep the head of bed above 30 degrees to avoid the acid from going up. (5) Generalized anxiety disorder: Comment: Patient follows up with [facility] Code(s): F41.1 - Generalized anxiety disorder Plan: Continue with counseling and therapy Medications: Changed From paroxetine HCl 10 mg PO DAILY 90 days 90 tabs 1RF F41.9 - Anxiety disorder, unspecified To paroxetine HCl 20 mg PO DAILY 90 days 90 tabs 1RF F41.9 - Anxiety disorder, unspecified Refilled alprazolam 1 mg PO BID 30 days 45 tabs 0RF F41.9 - Anxiety disorder, unspecified Coding Level of Care Code Est Pt Level 4 (53715) Diagnoses Hypercholesterolemia E78.00 Essential hypertension I10 Hypertension type: essential hypertension Acquired hypothyroidism E03.9 Hypothyroidism type: acquired Gastroesophageal reflux disease without esophagitis K21.9 Esophagitis presence: without esophagitis Generalized anxiety disorder F41.1
== END 2023-09-19 11:48 | disposition home or self-care (01) ==
PROVIDERS: PCP Internal Medicine; Visit Provider Internal Medicine
DX: E78.00 Pure hypercholesterolemia, unspecified (principal); I10 Essential (primary) hypertension; E03.9 Hypothyroidism, unspecified; K21.9 Gastro-esophageal reflux disease without esophagitis; F41.1 Generalized anxiety disorder
CPT/HCPCS: 99214

== ENCOUNTER 2023-11-12 14:27 | Outpatient (AMB) | payer MEDICARE, MEDICAID, SELFPAY ==
[2023-11-12 14:33] VITALS: BP 130/62; PULSE 76; O2SAT 96; BMI 20.9
--- NOTE | 2023-11-12 14:33 | MHC.PC.OV ---
Vital Signs 11/12/23 14:33 Height 4 ft 10 in Weight 100 lb 0.4 oz BMI 20.9 BP 130/62 Blood Pressure Location Lt brachial Position Sitting Pulse 76 Pulse Source Pulse Oximeter Pulse Oximetry (%) 96 Oxygen Delivery Method Room Air Intake Visit Reasons: RAMONA Tailer In Required: No Allergies penicillin G [Penicillin G] Allergy (Mild, Verified 11/12/23 14:42) VOMITING penicillin V Allergy (Unknown, Verified 11/12/23 14:42) hives Tobacco use date assessed: 07/20/23 Fall risk assessment: No Falls in past year Last assessed Fall Risk: 11/12/23 Dental Screening Dental Screen Date: 09/19/23 HPI RAMONA HPI Details 82-year-old female with generalized anxiety disorder hypercholesterolemia hypertension hypothyroid and GERD last seen in August 2023. Patient is here for follow-up. Noted ER visit September 2023 neck swelling radiating to the ear for couple of weeks with dysphagia. Question of obstructive salivary gland diagnosis of sialoadenitis treated with metronidazole and cephalexin advised ENT. Dr. Sanz seen and was rx clindamycin. ff up with ENT. complains of loss of apetitte with weight loss. no n no v, , no cough , no sob, has constipation no dysuria PFSH Medical History Asthma Bilateral femoral artery stenosis Colonoscopy refused GERD (gastroesophageal reflux disease) Hypercholesterolemia Hypertension Hypothyroid Knee osteoarthritis Surgical History History of surgery Family History Family/Other Medical history unknown Social History Housing: Apartment Alcohol intake: never Patient Tobacco Use Status: Never used Tobacco Tobacco use type: Cigarette e-Cigarette/Vaping Use: Never Used Second Hand Smoke Exposure: No service: No Current occupational status: disabled Current occupational exposures/hazards: No Cognitive needs: No Hearing needs: No Vision needs: Yes Questionnaire Thrive Questionnaire Date Thrive assessed: 05/23/23 AUDIT C Alcohol Use Questionnaire (AUDIT-C) 1. How often do you have a drink containing alcohol?: Never 2. How many drinks containing alcohol do you have on a typical day when you are drinking?: 1 or 2 (0) 3. How often do you have six or more drinks on one occasion?: Never Total Score: 0 RAMONA-7 AMB Questionnaire RAMONA-7 Date RAMONA - 7 assessed: 05/23/23 Source: Developed by Drs. Jose Anderson, Carrie Millard, Santi Frazier and colleagues, with an educational frank from [employer]. Physical exam (Primary Care) Vital Signs: Last Vital Signs Pulse 76 11/12/23 14:33 BP 130/62 11/12/23 14:33 Pulse Ox 96 11/12/23 14:33 Oxygen Delivery Method Room Air 11/12/23 14:33 BMI result Body Mass Index 20.9 Tobacco/Smoking Status: Tobacco use Status Tobacco use date assessed 07/20/23 11/12/23 14:34 Patient Tobacco Use Status Never used Tobacco 11/12/23 14:34 Tobacco use type Cigarette 11/12/23 14:34 e-Cigarette/Vaping Use Never Used 11/12/23 14:34 Thrive Assessment: Date of Thrive Assessment Date Thrive assessed 05/23/23 11/12/23 14:34 Const General: alert; No acute distress Eyes Conjunctivae: conjunctivae normal Resp Auscultation: clear to auscultation bilaterally Cardio Rate: regular rate Rhythm: regular rhythm GI Inspection: Yes normal to inspection Extrem General: Yes normal to inspection and No edema Assessment and Plan Assessment & Plan (1) Sialadenitis: Code(s): K11.20 - Sialoadenitis, unspecified Plan: Patient was in the emergency room in September 2023 and was treated with antibiotics. Was seen by dr. Bender and send clindamycin 300 mg QID and a ff up (2) Generalized anxiety disorder: Comment: Patient follows up with [facility] Code(s): F41.1 - Generalized anxiety disorder Plan: Continue with counseling and therapy (3) Hypertension: Code(s): I10 - Essential (primary) hypertension Qualifiers: Hypertension type: essential hypertension Qualified Code(s): I10 - Essential (primary) hypertension Plan: Continue with blood pressure medication. Decrease salt intake and exercise (4) Weight loss: Code(s): R63.4 - Abnormal weight loss Orders: Referrals Gastroenterology Referral K21.9 - Gastro-esophageal reflux disease without esophagitis, R63.4 - Abnormal weight loss Medications: New food supplemt, lactose-reduced (Ensure oral liquid) 1 ea PO .QD 5,688 mL 3RF R63.4 - Abnormal weight loss Coding Level of Care Code Est Pt Level 4 (69090) Diagnoses Sialadenitis K11.20 Generalized anxiety disorder F41.1 Essential hypertension I10 Hypertension type: essential hypertension Weight loss R63.4
== END 2023-11-12 15:43 | disposition home or self-care (01) ==
PROVIDERS: PCP Internal Medicine; Visit Provider Internal Medicine
DX: K11.20 Sialoadenitis, unspecified (principal); F41.1 Generalized anxiety disorder; I10 Essential (primary) hypertension; R63.4 Abnormal weight loss
CPT/HCPCS: 99214

== ENCOUNTER 2023-12-18 11:52 | Outpatient (REF) | payer MEDICARE, MEDICAID, SELFPAY ==
[2023-12-18 13:31] LABS: Free T4 (Free Thyroxine) 1.15 ng/dL (0.71-1.85); Thyroid Stimulating Hormone 0.22 uIU/mL (0.32-4.0)
== END 2023-12-18 11:53 | disposition home or self-care (01) ==
LOC: HO.LAB 11:52
PROVIDERS: PCP Internal Medicine; Visit Provider Internal Medicine
DX: E03.9 Hypothyroidism, unspecified (principal)
CPT/HCPCS: 36415; 84439; 84443

== ENCOUNTER 2023-12-20 11:19 | Outpatient (AMB) | payer MEDICARE, MEDICAID, SELFPAY ==
[2023-12-20 11:32] VITALS: BP 154/72; PULSE 77; O2SAT 98; BMI 21.5
--- NOTE | 2023-12-20 11:32 | A.OFFPC_ITS ---
Vital Signs 12/20/23 11:32 12/20/23 12:34 Height 4 ft 10 in Weight 103 lb BMI 21.5 BP 154/72 H 140/80 H Blood Pressure Location Lt brachial Lt brachial Position Sitting Sitting Pulse 77 Pulse Source Pulse Oximeter Pulse Oximetry (%) 98 Oxygen Delivery Method Room Air Intake Visit Reasons: Med Follow Up Intake Note: Refill for xanax Allergies penicillin G [Penicillin G] Allergy (Mild, Verified 12/20/23 11:32) VOMITING penicillin V Allergy (Unknown, Verified 12/20/23 11:32) hives Medication List - Last Reconciled 12/20/23 by Arlen Bray MD acetaminophen (Tylenol Extra Strength) 500 mg PO Q6H PRN albuterol sulfate 2.5 mg inhalation Q4-6H PRN albuterol sulfate 90 mcg/actuation (Ventolin HFA) 2 puffs inhalation Q4-6H PRN alprazolam 1 mg PO BID 30 days amlodipine 5 mg PO DAILY 90 days atorvastatin 10 mg PO DAILY blood pressure monitor (Blood Pressure Kit) As directed [CANE As directed] carbamide peroxide 6.5% (Debrox) 5 drps otic (ears) DAILY 4 days diclofenac sodium 1% (Voltaren Arthritis Pain) 4 grams topical QID 30 days docusate sodium (Colace) 200 mg (2 x 100 mg) PO DAILY 90 days dupilumab (Dupixent) 200 mg (1.34 mL) subcut Q2W fluticasone furoate-vilanterol 100-25 mcg/dose (Breo Ellipta) 1 inh inhalation DAILY fluticasone propionate 50 mcg/actuation (Flonase Allergy Relief) 2 sprays intranasal DAILY food supplemt, lactose-reduced (Ensure oral liquid) 1 ea PO .QD hydroxyzine HCl 25 mg PO BID PRN levothyroxine 75 mcg PO QAM 90 days olopatadine 0.1% 1 drp ophthalmic (eye) BID pantoprazole 40 mg PO BID paroxetine HCl 20 mg PO DAILY 90 days polyethylene glycol 3350 17 grams PO DAILY promethazine 25 mg PO Q4-6H PRN [SHOWER CHAIR WITH BACK As directed] simethicone 125 mg PO BID-QID PRN tizanidine 4 mg PO BID PRN triamcinolone acetonide 0.5% 1 appl topical BID 7 days Tobacco use date assessed: 07/20/23 Fall risk assessment: No Falls in past year Last assessed Fall Risk: 12/20/23 Dental Screening Dental Screen Date: 09/19/23 [facility] Med Follow Up HPI Details 83-year-old female with hypertension ast hma hypercholesterolemia GERD hypothyroidism last seen in 11/17/2023 patient also has generalized anxiety disorder patient's mammogram is due [facility] Medical History Asthma Bilateral femoral artery stenosis Colonoscopy refused GERD (gastroesophageal reflux disease) Hypercholesterolemia Hypertension Hypothyroid Knee osteoarthritis Surgical History History of surgery Family History Family/Other Medical history unknown Social History Housing: Apartment Alcohol intake: never Patient Tobacco Use Status: Never used Tobacco Tobacco use type: Cigarette e-Cigarette/Vaping Use: Never Used Second Hand Smoke Exposure: No service: No Current occupational status: disabled Current occupational exposures/hazards: No Cognitive needs: No Hearing needs: No Vision needs: Yes Questionnaire PHQ-9 Over the last 2 weeks, how often have you been bothered by any of the following problems? 1. Little interest or pleasure in doing things: nearly every day (due to family emergency ) 2. Feeling down, depressed, or hopeless: nearly every day 3. Trouble falling or staying asleep, or sleeping too much: several days 4. Feeling tired or having little energy: several days 5. Poor appetite or overeating: nearly every day 6. Feeling bad about yourself - or that you are a failure or have let yourself or your family down: nearly every day 7. Trouble concentrating on things, such as reading the newspaper or watching television: nearly every day 8. Moving or speaking so slowly that other people could have noticed. Or the opposite - being so fidgety or restless that you have been moving around a lot more than usual: not at all 9. Thoughts that you would be better off or of hurting yourself in some way: not at all Total score: 17 Depression Screening Interpretation: Positive Depression Screening Done: Yes Source: Developed by Drs. Jose Anderson, Santi Barnhart and colleagues, with an educational frank from [employer]. Thrive Questionnaire Date Thrive assessed: 05/23/23 AUDIT C Alcohol Use Questionnaire (AUDIT-C) 1. How often do you have a drink containing alcohol?: Never 2. How many drinks containing alcohol do you have on a typical day when you are drinking?: 1 or 2 (0) 3. How often do you have six or more drinks on one occasion?: Never Total Score: 0 RAMONA-7 AMB Questionnaire RAMONA-7 Date RAMONA - 7 assessed: 05/23/23 Source: Developed by Drs. Jose Anderson, Carrie Millard, Santi Frazier and colleagues, with an educational frank from [employer]. Physical exam (Primary Care) Vital Signs: Last Vital Signs Pulse 77 12/20/23 11:32 BP 154/72 H 12/20/23 11:32 Pulse Ox 98 12/20/23 11:32 Oxygen Delivery Method Room Air 12/20/23 11:32 BMI result Body Mass Index 21.5 Tobacco/Smoking Status: Tobacco use Status Tobacco use date assessed 07/20/23 12/20/23 11:33 Patient Tobacco Use Status Never used Tobacco 12/20/23 11:33 Tobacco use type Cigarette 12/20/23 11:33 e-Cigarette/Vaping Use Never Used 12/20/23 11:33 PHQ-9: PHQ-9 Score PHQ-9: Total score 17 12/20/23 12:02 Depression Screening Interpretation: Positive Thrive Assessment: Date of Thrive Assessment Date Thrive assessed 05/23/23 12/20/23 11:33 Const General: alert; No acute distress Eyes Conjunctivae: conjunctivae normal Resp Auscultation: clear to auscultation bilaterally Cardio Rate: regular rate Rhythm: regular rhythm GI Inspection: Yes normal to inspection Extrem General: Yes normal to inspection and No edema Assessment and Plan Assessment & Plan (1) Hypertension: Code(s): I10 - Essential (primary) hypertension Qualifiers: Hypertension type: essential hypertension Qualified Code(s): I10 - Essential (primary) hypertension Plan: Continue with blood pressure medication. Decrease salt intake and exercise on amlodipine 5 mg once a day advised to monitor (2) Hypothyroid: Code(s): E03.9 - Hypothyroidism, unspecified Qualifiers: Hypothyroidism type: acquired Qualified Code(s): E03.9 - Hypothyroidism, unspecified Plan: TSH has been swinging discussed about how to take the thyroid medication and will need retesting. will need the thyroid med taken seperately (3) Generalized anxiety disorder: Comment: Patient follows up with [facility] Code(s): F41.1 - Generalized anxiety disorder Plan: Continue with present medication as well as counseling and therapy. Medications: Refilled alprazolam 1 mg PO BID 30 days 45 tabs 2RF F41.9 - Anxiety disorder, unspecified carbamide peroxide 6.5% (Debrox) 5 drps otic (ears) DAILY 4 days 15 mL 0RF H61.23 - Impacted cerumen, bilateral olopatadine 0.1% separate doses by at least 6-8 hours 1 drp ophthalmic (eye) BID 5 mL 1RF H10.10 - Acute atopic conjunctivitis, unspecified eye Coding Level of Care Code Est Pt Level 4 (34389) Diagnoses Essential hypertension I10 Hypertension type: essential hypertension Acquired hypothyroidism E03.9 Hypothyroidism type: acquired Generalized anxiety disorder F41.1
[2023-12-20 12:34] VITALS: BP 140/80
== END 2023-12-20 12:47 | disposition home or self-care (01) ==
PROVIDERS: PCP Internal Medicine; Visit Provider Internal Medicine
DX: I10 Essential (primary) hypertension (principal); E03.9 Hypothyroidism, unspecified; F41.1 Generalized anxiety disorder
CPT/HCPCS: 99214

== ENCOUNTER 2024-02-19 11:46 | Outpatient (REF) | payer MEDICARE, MEDICAID, SELFPAY ==
[2024-02-19 13:28] LABS: Free T4 (Free Thyroxine) 1.05 ng/dL (0.71-1.85)
== END 2024-02-19 11:47 | disposition home or self-care (01) ==
LOC: HO.LAB 11:46
PROVIDERS: PCP Internal Medicine; Visit Provider Internal Medicine
DX: E03.9 Hypothyroidism, unspecified (principal)
CPT/HCPCS: 36415; 84439; 84443

== ENCOUNTER 2024-02-20 10:36 | Outpatient (AMB) | payer MEDICARE, MEDICAID, SELFPAY ==
[2024-02-20 11:26] VITALS: BP 142/76; PULSE 76; O2SAT 96; BMI 21.3
--- NOTE | 2024-02-20 11:26 | MHC.PC.OV ---
Vital Signs 02/20/24 11:26 Height 4 ft 10 in Weight 102 lb BMI 21.3 BP 142/76 H Blood Pressure Location Lt brachial Position Sitting Pulse 76 Pulse Source Pulse Oximeter Pulse Oximetry (%) 96 Oxygen Delivery Method Room Air Intake Visit Reasons: Med Follow Up Allergies penicillin G [Penicillin G] Allergy (Mild, Verified 02/20/24 11:27) VOMITING penicillin V Allergy (Unknown, Verified 02/20/24 11:27) hives Medication List - Last Reconciled 02/20/24 by Arlen Bray MD acetaminophen (Tylenol Extra Strength) 500 mg PO Q6H PRN albuterol sulfate 2.5 mg inhalation Q4-6H PRN albuterol sulfate 90 mcg/actuation (Ventolin HFA) 2 puffs inhalation Q4-6H PRN alprazolam 1 mg PO BID 30 days amlodipine 10 mg PO DAILY 90 days atorvastatin 10 mg PO DAILY blood pressure monitor (Blood Pressure Kit) As directed [CANE As directed] carbamide peroxide 6.5% (Debrox) 5 drps otic (ears) DAILY 4 days diclofenac sodium 1% (Voltaren Arthritis Pain) 4 grams topical QID 30 days docusate sodium (Colace) 200 mg (2 x 100 mg) PO DAILY 90 days dupilumab (Dupixent) 200 mg (1.34 mL) subcut Q2W fluticasone furoate-vilanterol 100-25 mcg/dose (Breo Ellipta) 1 inh inhalation DAILY fluticasone propionate 50 mcg/actuation (Flonase Allergy Relief) 2 sprays intranasal DAILY food supplemt, lactose-reduced (Ensure oral liquid) 1 ea PO .QD hydroxyzine HCl 25 mg PO BID PRN levothyroxine 75 mcg PO QAM 90 days olopatadine 0.1% 1 drp ophthalmic (eye) BID pantoprazole 40 mg PO BID paroxetine HCl 20 mg PO DAILY 90 days polyethylene glycol 3350 17 grams PO DAILY promethazine 25 mg PO Q4-6H PRN [SHOWER CHAIR WITH BACK As directed] simethicone 125 mg PO BID-QID PRN tizanidine 4 mg PO BID PRN triamcinolone acetonide 0.5% 1 appl topical BID 7 days Tobacco use date assessed: 07/20/23 Fall risk assessment: No Falls in past year Last assessed Fall Risk: 02/20/24 Dental Screening Dental Screen Date: 09/19/23 [facility] Med Follow Up HPI Details 83-year-old female with hypertension hypothyroid and generalized anxiety disorder last seen in 12/18/2023. FOR[facility]LY [facility], [facility] Medical History Asthma Bilateral femoral artery stenosis Colonoscopy refused GERD (gastroesophageal reflux disease) Hypercholesterolemia Hypertension Hypothyroid Knee osteoarthritis Surgical History History of surgery Family History Family/Other Medical history unknown Social History Housing: Apartment Alcohol intake: never Patient Tobacco Use Status: Never used Tobacco Tobacco use type: Cigarette e-Cigarette/Vaping Use: Never Used Second Hand Smoke Exposure: No service: No Current occupational status: disabled Current occupational exposures/hazards: No Cognitive needs: No Hearing needs: No Vision needs: Yes Questionnaire PHQ-9 Over the last 2 weeks, how often have you been bothered by any of the following problems? 1. Little interest or pleasure in doing things: nearly every day (due to family emergency ) 2. Feeling down, depressed, or hopeless: nearly every day 3. Trouble falling or staying asleep, or sleeping too much: several days 4. Feeling tired or having little energy: several days 5. Poor appetite or overeating: nearly every day 6. Feeling bad about yourself - or that you are a failure or have let yourself or your family down: nearly every day 7. Trouble concentrating on things, such as reading the newspaper or watching television: nearly every day 8. Moving or speaking so slowly that other people could have noticed. Or the opposite - being so fidgety or restless that you have been moving around a lot more than usual: not at all 9. Thoughts that you would be better off or of hurting yourself in some way: not at all Total score: 17 Depression Screening Interpretation: Positive Depression Screening Done: Yes Source: Developed by Drs. Jose Anderson, Carrie Millard, Santi Frazier and colleagues, with an educational frank from [employer]. Thrive Questionnaire Date Thrive assessed: 05/23/23 AUDIT C Alcohol Use Questionnaire (AUDIT-C) 1. How often do you have a drink containing alcohol?: Never 2. How many drinks containing alcohol do you have on a typical day when you are drinking?: 1 or 2 (0) 3. How often do you have six or more drinks on one occasion?: Never Total Score: 0 RAMONA-7 AMB Questionnaire RAMONA-7 Date RAMONA - 7 assessed: 05/23/23 Source: Developed by Drs. Jose Anderson, Carrie Millard, Santi Frazier and colleagues, with an educational frank from [employer]. Physical exam (Primary Care) Vital Signs: Last Vital Signs Pulse 76 02/20/24 11:26 BP 142/76 H 02/20/24 11:26 Pulse Ox 96 02/20/24 11:26 Oxygen Delivery Method Room Air 02/20/24 11:26 BMI result Body Mass Index 21.3 Tobacco/Smoking Status: Tobacco use Status Tobacco use date assessed 07/20/23 02/20/24 11:27 Patient Tobacco Use Status Never used Tobacco 02/20/24 11:27 Tobacco use type Cigarette 02/20/24 11:27 e-Cigarette/Vaping Use Never Used 02/20/24 11:27 PHQ-9: PHQ-9 Score PHQ-9: Total score 17 02/20/24 11:43 Depression Screening Interpretation: Positive Thrive Assessment: Date of Thrive Assessment Date Thrive assessed 05/23/23 02/20/24 11:27 Const General: alert; No acute distress Eyes Conjunctivae: conjunctivae normal Resp Other: Noted crackles and wheeze on auscultation bilateral Cardio Rate: regular rate Rhythm: regular rhythm GI Inspection: Yes normal to inspection Extrem General: Yes normal to inspection and No edema Office Procedures Flu Questionnaire Does the patient have a severe egg allergy?: No Does the patient have severe life threatening allergies?: No Does the patient have a fever or illness today?: No Has the patient ever had Guillain-[place] Syndrome?: No Has the patient ever had any past reaction to a flu shot?: No Immunizations Fluarix Triv [id number] (PF) 45 mcg (15 mcg x 3)/0.5 mL IM syringe Performing Provider: Arlen Bray MD Performing Location: [facility] [place] [facility] Documented (not given) by: Vivien Bryant CMA on 02/20/24 11:43 Reason Not Given: Patient Refused Coding Level of Care Code Est Pt Level 4 (65420) Diagnoses Essential hypertension I10 Hypertension type: essential hypertension Acquired hypothyroidism E03.9 Hypothyroidism type: acquired Generalized anxiety disorder F41.1 Other chest pain R07.89 Chest pain type: other chest pain Assessment & Plan Assessment & Plan (1) Hypertension: Code(s): I10 - Essential (primary) hypertension Category: Social Hx Qualifiers: Hypertension type: essential hypertension Qualified Code(s): I10 - Essential (primary) hypertension Plan: Continue with blood pressure medication. Decrease salt intake and exercise patient on amlodipine 5 mg once a day. Blood pressure remains to be elevated advised to increase amlodipine to 10 mg once a day (2) Hypothyroid: Code(s): E03.9 - Hypothyroidism, unspecified Category: Medical Qualifiers: Hypothyroidism type: acquired Qualified Code(s): E03.9 - Hypothyroidism, unspecified Plan: Continue with thyroid medication (3) Generalized anxiety disorder: Comment: Patient follows up with [facility] Counseling Code(s): F41.1 - Generalized anxiety disorder Category: Medical Plan: Continue with present medication and counseling (4) Chest pain: Comment: Left shoulder pain Code(s): R07.9 - Chest pain, unspecified Category: Medical Qualifiers: Chest pain type: other chest pain Qualified Code(s): R07.89 - Other chest pain Plan: concern about crackles in the lung and has been seeing Pulmo. on Dupixent, reminded about sending notes to me. will do chest xray Orders: Orders Complete Blood Count Auto Diff 3 Months E03.9 - Hypothyroidism, unspecified Comprehensive Met. Panel 3 Months E03.9 - Hypothyroidism, unspecified Thyroid Stimulating Hormone 3 Months E03.9 - Hypothyroidism, unspecified Lipid Panel 3 Months E03.9 - Hypothyroidism, unspecified, E78.00 - Pure hypercholesterolemia, unspecified Influenza [id number] Immunization Today Z23 - Encounter for immunization XR chest 2V Today R07.9 - Chest pain, unspecified Free T4 (Free Thyroxine) 3 Months E03.9 - Hypothyroidism, unspecified Vitamin B12 and Folate 3 Months E03.9 - Hypothyroidism, unspecified Vitamin D 25-OH Total 3 Months E03.9 - Hypothyroidism, unspecified Medications: Changed From amlodipine 5 mg PO DAILY 90 days 90 tabs 3RF To amlodipine 10 mg PO DAILY 90 days 90 tabs 3RF
== END 2024-02-20 12:14 | disposition home or self-care (01) ==
PROVIDERS: PCP Internal Medicine; Visit Provider Internal Medicine
DX: I10 Essential (primary) hypertension (principal); E03.9 Hypothyroidism, unspecified; F41.1 Generalized anxiety disorder; R07.89 Other chest pain; Z23 Encounter for immunization

== ENCOUNTER → 2024-02-20 10:36 | Outpatient (BNVA) | payer MEDICARE, MEDICAID, SELFPAY | PROVIDERS: PCP Internal Medicine; Visit Provider Internal Medicine | DX: I10 Essential (primary) hypertension (principal); E03.9 Hypothyroidism, unspecified; F41.1 Generalized anxiety disorder; R07.89 Other chest pain; Z79.899 Other long term (current) drug therapy | CPT/HCPCS: 90471; 96127; 99212 ==

== ENCOUNTER 2024-03-21 10:48 | Outpatient (AMB) | payer MEDICARE, MEDICAID, SELFPAY ==
[2024-03-21 10:50] VITALS: BP 130/68; PULSE 64; O2SAT 97; BMI 21.7
--- NOTE | 2024-03-21 10:50 | MHC.PC.OV ---
Vital Signs 03/21/24 10:50 Height 4 ft 10 in Weight 104 lb BMI 21.7 BP 130/68 Blood Pressure Location Lt brachial Position Sitting Pulse 64 Pulse Source Pulse Oximeter Pulse Oximetry (%) 97 Oxygen Delivery Method Room Air Intake Visit Reasons: Med Follow Up Allergies penicillin G [Penicillin G] Allergy (Mild, Verified 03/21/24 10:51) VOMITING penicillin V Allergy (Unknown, Verified 03/21/24 10:51) hives Tobacco use date assessed: 07/20/23 Fall risk assessment: No Falls in past year Last assessed Fall Risk: 03/21/24 Dental Screening Dental Screen Date: 09/19/23 HPI Med Follow Up HPI Details 83-year-old female with hypertension hypothyroidism generalized anxiety disorder last seen in 02/17/2024. Patient is here for follow-up. fall 3 days ago climbing opn chair. ent ff up yesterday for the sialodenitis ENT surgeon of [facility] Dr. colón. still counsellor through telephone. for the asthma follows up with Pulmonary. [facility] Medical History Asthma Bilateral femoral artery stenosis Colonoscopy refused GERD (gastroesophageal reflux disease) Hypercholesterolemia Hypertension Hypothyroid Knee osteoarthritis Surgical History History of surgery Family History Family/Other Medical history unknown Social History Housing: Apartment Alcohol intake: never Patient Tobacco Use Status: Never used Tobacco Tobacco use type: Cigarette e-Cigarette/Vaping Use: Never Used Second Hand Smoke Exposure: No service: No Current occupational status: disabled Current occupational exposures/hazards: No Cognitive needs: No Hearing needs: No Vision needs: Yes Questionnaire PHQ-9 Over the last 2 weeks, how often have you been bothered by any of the following problems? 1. Little interest or pleasure in doing things: nearly every day (due to family emergency ) 2. Feeling down, depressed, or hopeless: nearly every day 3. Trouble falling or staying asleep, or sleeping too much: several days 4. Feeling tired or having little energy: several days 5. Poor appetite or overeating: nearly every day 6. Feeling bad about yourself - or that you are a failure or have let yourself or your family down: nearly every day 7. Trouble concentrating on things, such as reading the newspaper or watching television: nearly every day 8. Moving or speaking so slowly that other people could have noticed. Or the opposite - being so fidgety or restless that you have been moving around a lot more than usual: not at all 9. Thoughts that you would be better off or of hurting yourself in some way: not at all Total score: 17 Depression Screening Interpretation: Positive Depression Screening Done: Yes Source: Developed by Drs. Jose Anderson, Carrie Millard, Santi Frazier and colleagues, with an educational frank from [employer]. Thrive Questionnaire Date Thrive assessed: 05/23/23 AUDIT C Alcohol Use Questionnaire (AUDIT-C) 1. How often do you have a drink containing alcohol?: Never 2. How many drinks containing alcohol do you have on a typical day when you are drinking?: 1 or 2 (0) 3. How often do you have six or more drinks on one occasion?: Never Total Score: 0 RAMONA-7 AMB Questionnaire RAMONA-7 Date RAMONA - 7 assessed: 05/23/23 Source: Developed by Drs. Jose Anderson, Carrie Millard, Santi Frazier and colleagues, with an educational frank from [employer]. Physical exam (Primary Care) Vital Signs: Oxygen Delivery Method Room Air 03/21/24 10:50 Tobacco/Smoking Status: Tobacco use Status Tobacco use date assessed 07/20/23 02/20/24 11:27 Patient Tobacco Use Status Never used Tobacco 02/20/24 11:27 Tobacco use type Cigarette 02/20/24 11:27 e-Cigarette/Vaping Use Never Used 02/20/24 11:27 Depression Screening Interpretation: Positive Thrive Assessment: Date of Thrive Assessment Date Thrive assessed 05/23/23 02/20/24 11:27 Const General: alert; No acute distress Eyes Conjunctivae: conjunctivae normal Resp Auscultation: clear to auscultation bilaterally Cardio Rate: regular rate Rhythm: regular rhythm GI Inspection: Yes normal to inspection Extrem General: Yes normal to inspection and No edema Coding Level of Care Code Est Pt Level 4 (75771) Diagnoses Anemia due to other cause, not classified D64.89 Anemia type: other cause Other causes of anemia: other cause, not classified Acquired hypothyroidism E03.9 Hypothyroidism type: acquired Gastroesophageal reflux disease without esophagitis K21.9 Esophagitis presence: without esophagitis Essential hypertension I10 Hypertension type: essential hypertension Hypercholesterolemia E78.00 Generalized anxiety disorder F41.1 Mild intermittent asthma without complication J45.20 Asthma severity: mild Asthma persistence: intermittent Asthma complication type: uncomplicated Sialadenitis K11.20 Assessment & Plan Assessment & Plan (1) Anemia: Code(s): D64.9 - Anemia, unspecified Category: Medical Qualifiers: Anemia type: other cause Other causes of anemia: other cause, not classified Qualified Code(s): D64.89 - Other specified anemias Plan: Stable and continue to follow-up (2) Hypothyroid: Code(s): E03.9 - Hypothyroidism, unspecified Category: Medical Qualifiers: Hypothyroidism type: acquired Qualified Code(s): E03.9 - Hypothyroidism, unspecified Plan: Continue with thyroid medication at 75 mcg once a day (3) GERD (gastroesophageal reflux disease): Code(s): K21.9 - Gastro-esophageal reflux disease without esophagitis Category: Medical Qualifiers: Esophagitis presence: without esophagitis Qualified Code(s): K21.9 - Gastro-esophageal reflux disease without esophagitis Plan: Avoid the foods that causes that usually spicy foods, tomato products, juices, coffee, soda and foods that your sensitive to. After eating do not lie down, allow 3-4 hours before in lie down. And keep the head of bed above 30 degrees to avoid the acid from going up. (4) Hypertension: Code(s): I10 - Essential (primary) hypertension Category: Social Hx Qualifiers: Hypertension type: essential hypertension Qualified Code(s): I10 - Essential (primary) hypertension Plan: Continue with blood pressure medication. Decrease salt intake and exercise on amlodipine 10 mg once a day (5) Hypercholesterolemia: Code(s): E78.00 - Pure hypercholesterolemia, unspecified Category: Medical Plan: Avoid fried foods, chicken skin, eggs, butter margarine, pastries and meat. Be it pork or beef they have a lot of cholesterol LDL goal of less than 130 and triglyceride of less than 150 on atorvastatin 10 mg once a day (6) Generalized anxiety disorder: Comment: Patient follows up with [facility] Counseling Code(s): F41.1 - Generalized anxiety disorder Category: Medical Plan: Continue with counseling and therapy. (7) Asthma: Code(s): J45.909 - Unspecified asthma, uncomplicated Category: Medical Qualifiers: Asthma severity: mild Asthma persistence: intermittent Asthma complication type: uncomplicated Qualified Code(s): J45.20 - Mild intermittent asthma, uncomplicated Plan: Patient also follows up with Pulmonary and awaiting notes. (8) Sialadenitis: Code(s): K11.20 - Sialoadenitis, unspecified Category: Medical Plan: Patient states has just recently seen ear nose and throat, Dr. Colón and awaiting results
== END 2024-03-21 11:09 | disposition home or self-care (01) ==
PROVIDERS: PCP Internal Medicine; Visit Provider Internal Medicine
DX: D64.89 Other specified anemias (principal); E03.9 Hypothyroidism, unspecified; K21.9 Gastro-esophageal reflux disease without esophagitis; I10 Essential (primary) hypertension; E78.00 Pure hypercholesterolemia, unspecified; F41.1 Generalized anxiety disorder; J45.20 Mild intermittent asthma, uncomplicated; K11.20 Sialoadenitis, unspecified

== ENCOUNTER → 2024-03-21 10:48 | Outpatient (BNVA) | payer MEDICARE, MEDICAID, SELFPAY | PROVIDERS: PCP Internal Medicine; Visit Provider Internal Medicine | DX: D64.89 Other specified anemias (principal); E03.9 Hypothyroidism, unspecified; K21.9 Gastro-esophageal reflux disease without esophagitis; I10 Essential (primary) hypertension; E78.00 Pure hypercholesterolemia, unspecified; F41.1 Generalized anxiety disorder; J45.20 Mild intermittent asthma, uncomplicated; K11.20 Sialoadenitis, unspecified | CPT/HCPCS: 99212 ==

== ENCOUNTER 2024-06-02 15:27 | Outpatient (AMB) | payer MEDICARE, MEDICAID, SELFPAY ==
--- NOTE | 2024-06-02 15:56 | MHC.PC.OV ---
Vital Signs 06/02/24 15:57 Height 4 ft 10 in Weight 103 lb 8 oz BMI 21.6 BP 144/72 H Blood Pressure Location Lt brachial Position Sitting Pulse 76 Pulse Source Pulse Oximeter Temp 97.3 F Temp Source Temporal Artery Scan Pulse Oximetry (%) 95 Oxygen Delivery Method Room Air Intake Visit Reasons: 3 month f/u Circle Edger Required: No Circle Edger Name: Patient refused; son inteprete Accompanied by: Son Allergies penicillin G [Penicillin G] Allergy (Mild, Verified 06/02/24 16:00) VOMITING penicillin V Allergy (Unknown, Verified 06/02/24 16:00) hives Tobacco use date assessed: 06/02/24 Fall risk assessment: No Falls in past year Last assessed Fall Risk: 06/02/24 Dental Screening Dental Screen Date: 06/02/24 Did you have a dental visit in the last 12 months?: Yes Did you have a dental problem in the last 6 months where you did not have access to dental care?: No Was dental information given to patient?: Patient has dentist HPI 3 month f/u HPI Details The patient is an 83-year-old female presenting with management of chronic conditions including Essential Hypertension, Asthma, and Depression. Hypertension was noted with an elevated reading, and there has been inconsistency in taking antihypertensive medications due to pharmacy supply issues. Home monitoring is intermittent, with a recent home blood pressure reading of 140/60 mmHg. Asthma is managed with medications including albuterol as needed and Brio, with reportedly good control; however, the use of the albuterol inhaler has been infrequent. Previous consultations with pulmonary specialists were noted, and Dopixen was mentioned but not discussed in detail. The patient is experiencing issues with her current GERD medication, pantoprazole, which is described as ineffective. She has been offered alternatives such as Pepcid and dietary modifications to manage the symptoms of gas and heartburn. Depression has been an ongoing issue, worsened by the recent passing of her son. The patient reports daytime sleepiness and nighttime insomnia. She is on paroxetine for depression, with the dose deemed appropriate for now, though she was encouraged to engage in counseling services, which she has been reluctant about. Additionally, constipation is being managed with kras-kpa-tkalrmm red pills, and she was advised on lifestyle modifications including increased water intake, dietary fiber, and physical activity, with potential use of psyllium or Metamucil. There were discussions surrounding preventive care, including flu and pneumonia vaccinations, which the patient has declined after having had a recent flu episode. [facility] Medical History Asthma Bilateral femoral artery stenosis Colonoscopy refused GERD (gastroesophageal reflux disease) Hypercholesterolemia Hypertension Hypothyroid Knee osteoarthritis Surgical History History of surgery Family History Family/Other Medical history unknown Social History Housing: Apartment Alcohol intake: never Patient Tobacco Use Status: Never used Tobacco Tobacco use type: Cigarette e-Cigarette/Vaping Use: Never Used Second Hand Smoke Exposure: No service: No Current occupational status: disabled Current occupational exposures/hazards: No Cognitive needs: No Hearing needs: No Vision needs: Yes Questionnaire PHQ-9 Over the last 2 weeks, how often have you been bothered by any of the following problems? 1. Little interest or pleasure in doing things: nearly every day (due to family emergency ) 2. Feeling down, depressed, or hopeless: nearly every day 3. Trouble falling or staying asleep, or sleeping too much: several days 4. Feeling tired or having little energy: several days 5. Poor appetite or overeating: nearly every day 6. Feeling bad about yourself - or that you are a failure or have let yourself or your family down: nearly every day 7. Trouble concentrating on things, such as reading the newspaper or watching television: nearly every day 8. Moving or speaking so slowly that other people could have noticed. Or the opposite - being so fidgety or restless that you have been moving around a lot more than usual: not at all 9. Thoughts that you would be better off or of hurting yourself in some way: not at all Total score: 17 Depression Screening Interpretation: Positive Depression Screening Done: Yes Source: Developed by Drs. Jose Anderson, Carrie Millard, Santi Frazier and colleagues, with an educational frank from [employer]. Thrive Questionnaire Date Thrive assessed: 06/02/24 I am a: Patient What is your living situation today?: I have a steady place to live Within the past 12 months, did the food you bought not last and you didn't have the money to get more?: Never true Within the past 12 months, did you worry whether your food would run out before you got money to buy more?: Never true Do you have trouble paying for medicines?: No Do you have trouble getting transportation to medical appointments?: No Do you have trouble paying your heating and electricity bill?: No Do you have trouble taking care of your child, family member or friend?: No Do you have trouble with day-to-day activities such as bathing, preparing meals, shopping, managing finances, etc.?: No Are you currently unemployed and looking for a job?: No Are you interested in more education?: No Please select the resources that you would like help with: None Currently or been in a relationship where the following occur: No concerns reported THRIVE Score: 0 AUDIT C Alcohol Use Questionnaire (AUDIT-C) 1. How often do you have a drink containing alcohol?: Never 2. How many drinks containing alcohol do you have on a typical day when you are drinking?: 1 or 2 (0) 3. How often do you have six or more drinks on one occasion?: Never Total Score: 0 RAMONA-7 AMB Questionnaire RAMONA-7 Date RAMONA - 7 assessed: 06/02/24 Feeling nervous, anxious, or on edge: 0 = Not at all Not being able to stop or control worryin = Not at all Worrying too much about different things: 0 = Not at all Trouble relaxin = Not at all Being so restless that it is hard to sit still: 0 = Not at all Becoming easily annoyed or irritable: 0 = Not at all Feeling afraid as if something awful might happen: 0 = Not at all Total RAMONA-7 score (0-4 normal; 5-9 mild; 10-14 moderate; 15-21 severe): 0 Source: Developed by Drs. Jose Anderson, Carrie Millard, Santi Frazier and colleagues, with an educational frank from [employer]. RAMONA-7 Assessment Billing RAMONA-7 Assessment Tool: RAMONA-7 Assessment 46359 Physical exam (Primary Care) Vital Signs: Last Vital Signs Temp 97.3 F 06/02/24 15:57 Pulse 76 06/02/24 15:57 BP 144/72 H 06/02/24 15:57 Pulse Ox 95 06/02/24 15:57 Oxygen Delivery Method Room Air 06/02/24 15:57 BMI result Body Mass Index 21.6 Tobacco/Smoking Status: Tobacco use Status Tobacco use date assessed 06/02/24 06/02/24 16:03 Patient Tobacco Use Status Never used Tobacco 06/02/24 15:58 Tobacco use type Cigarette 06/02/24 15:58 e-Cigarette/Vaping Use Never Used 06/02/24 15:58 PHQ-9: PHQ-9 Score PHQ-9: Total score 17 06/02/24 16:46 Depression Screening Interpretation: Positive Thrive Assessment: Date of Thrive Assessment Date Thrive assessed 06/02/24 06/02/24 16:03 Currently or been in a relationship where the following occur: No concerns reported Const General: alert; No acute distress Eyes Conjunctivae: conjunctivae normal Resp Auscultation: clear to auscultation bilaterally Cardio Rate: regular rate Rhythm: regular rhythm GI Inspection: Yes normal to inspection Extrem General: Yes normal to inspection and No edema Immunizations pneumoc 20-jaclyn conj-dip cr(PF) 0.5 mL IM syringe Performing Provider: Arlen Bray MD [facility] Administered by: MATILDA Shannon on 06/02/24 16:46 Dose Route Admin Location Dispensed Lot Number Expiration Date NDC Compliance Engineer Products 0.5 mL IM Left Deltoid 0.5 mL [id number] 07/29/25 0129-1359-89 WYETH/PFIZER VIS Given Date VIS Provided VIS Publication Date 06/02/24 Single Vaccine 21 Eligibility Eligibility Date Funding Source Not [facility] Eligible 06/02/24 Private Coding Level of Care Code Est Pt Level 4 (60125) Diagnoses Hypercholesterolemia E78.00 Gastroesophageal reflux disease without esophagitis K21.9 Esophagitis presence: without esophagitis Essential hypertension I10 Hypertension type: essential hypertension Mild intermittent asthma without complication J45.20 Asthma complication type: uncomplicated Asthma persistence: intermittent Asthma severity: mild Acquired hypothyroidism E03.9 Hypothyroidism type: acquired Fatty liver K76.0 Generalized anxiety disorder F41.1 Constipation K59.00 Additional Codes RAMONA-7 Assessment Billing - RAMONA-7 Assessment Tool: RAMONA-7 Assessment 95846 ([id number]) Assessment & Plan Assessment & Plan (1) Hypercholesterolemia: Code(s): E78.00 - Pure hypercholesterolemia, unspecified Category: Medical (2) GERD (gastroesophageal reflux disease): Code(s): K21.9 - Gastro-esophageal reflux disease without esophagitis Category: Medical Qualifiers: Esophagitis presence: without esophagitis Qualified Code(s): K21.9 - Gastro-esophageal reflux disease without esophagitis (3) Hypertension: Code(s): I10 - Essential (primary) hypertension Category: Social Hx Qualifiers: Hypertension type: essential hypertension Qualified Code(s): I10 - Essential (primary) hypertension (4) Asthma: Code(s): J45.909 - Unspecified asthma, uncomplicated Category: Medical Qualifiers: Asthma complication type: uncomplicated Asthma persistence: intermittent Asthma severity: mild Qualified Code(s): J45.20 - Mild intermittent asthma, uncomplicated (5) Hypothyroid: Code(s): E03.9 - Hypothyroidism, unspecified Category: Medical Qualifiers: Hypothyroidism type: acquired Qualified Code(s): E03.9 - Hypothyroidism, unspecified (6) Fatty liver: Code(s): K76.0 - Fatty (change of) liver, not elsewhere classified Category: Medical (7) Generalized anxiety disorder: Comment: Patient follows up with [facility] Code(s): F41.1 - Generalized anxiety disorder Category: Medical (8) Constipation: Code(s): K59.00 - Constipation, unspecified Category: Medical Plan - Continue antihypertensive therapy with an emphasis on regular use and refill of medications to ensure blood pressure control. - Advise consistent use of prescribed asthma medications including Brio inhaler and prn Albuterol, with follow-up on medication adherence. - Administer alternative GERD treatment with a trial of Pepcid in place of pantoprazole, and reassess efficacy. Encourage dietary changes to mitigate symptoms. - Maintain current dose of paroxetine for depression, with continued monitoring of mood and encouragement of engaging in counseling despite current reluctance. - Provide prescription for senna with colace for constipation management, ensuring increased dietary fiber and water intake, and advising regular physical activity. - Reinforce importance of vaccinations including flu and pneumonia, despite previous adverse experience, for overall prevention of respiratory complications. Orders: Orders Pneumococcal 20 Immunization Today Z23 - Encounter for immunization Medications: New sennosides-docusate sodium 8.6-50 mg (Senna Plus) 2 tab-caps (2 x 8.6-50 mg) PO BID 60 caps 3RF K59.00 - Constipation, unspecified Discontinued pantoprazole Discontinued Reason: Patient Completed Course 40 mg PO BID 180 tabs 2RF K21.9 - Gastro-esophageal reflux disease without esophagitis docusate sodium (Colace) Discontinued Reason: Doctor's Order 200 mg (2 x 100 mg) PO DAILY 90 days 180 caps 3RF K59.00 - Constipation, unspecified
[2024-06-02 15:57] VITALS: BP 144/72; PULSE 76; TEMP 36.3; O2SAT 95; BMI 21.6
--- OUTSIDE RECORDS SUMMARY | 2024-06-02 16:53 | XMS_ITS | Encounter Summary ---
Author Organization [facility] Address [address] [place] [address] Care Team Providers Care Professor Of Management Name Role Phone Carisa Armstrong MD Primary Care Provider Unavail able Raciel Escobedo Primary Care Provider [phone] Arlen Bray MD Primary Care Provider Unavailabl e Encounter Details Date Type Department Care Team Description 05/27/2018 [facility] Medical Records [address] [place] [address] Abstract, Provider Social History Tobacco Use Types Packs/Day Years Used Date Smoking Tobacco: Never Smokeless Tobacco: Never Alcohol Use Standard Drinks/Week Comments No 0 (1 standard drink = 0.6 oz pur e alcohol) Sex Assigned at Date Recorded Not on file documented as of this encounter Plan of Treatment Not on file documented as of this encounter Visit Diagnoses Not on filedocumented in this encounter Care Teams Professor Of Management Relationship Specialty Start Date End Date Carisa Armstrong MD PCP - General Internal Medicine 07/30/17 08/24/21 Raciel Escobedo [address] [place] [address] [id number] PCP - General Internal Medicine 08/25/21 06/13/22 Arlen Bray MD [address] [place] [id number] PCP - General Internal Medicine 06/14/22 documented as of this encounter
--- OUTSIDE RECORDS SUMMARY | 2024-06-02 16:54 | XMS_ITS | Encounter Summary ---
Author Organization [facility] Address [address] [place] [address] Care Team Providers Care Cardiovascular Sonographer Name Role Phone Migel Pineda MD Primary Care Provider Un available Carisa Armstrong MD Primary Care Provider Unavail able Raciel Escobedo Primary Care Provider [phone] Arlen Bray MD Primary Care Provider Unavailabl e Encounter Details Date Type Department Care Team Description 08/22/2016 [facility] Medical Records [address] [place] [id number] Abstract, Provider Social History Tobacco Use Types [...] on filedocumented in this encounter Care Teams Cardiovascular Sonographer Relationship Specialty Start Date End Date Migel Pineda MD PCP - General Internal Medicine 12/22/15 8 Carisa Armstrong MD PCP - General Internal Medicine 07/30/17 08/24/21 Raciel Escobedo [address] [place] [address] [phone] PCP - General Internal Medicine 08/25/21 06/13/22 Arlen Bray MD [address] [place] [id number] PCP - General Internal Medicine 06/14/22 documented as of this encounter
--- OUTSIDE RECORDS SUMMARY | 2024-06-02 16:54 | XMS_ITS | Encounter Summary ---
Author Organization [facility] Address [address] [place] [address] Care Team Providers Care Bulwark Carpenter Name Role Phone Migel Pineda MD Primary Care Provider Un available Carisa Armstrong MD Primary Care Provider Unavail able Raciel Escobedo Primary Care Provider [phone] Arlen Bray MD Primary Care Provider Unavailabl e Encounter Details Date Type Department Care Team Description 05/24/2016 Home Health Certification Medical Records [address] [place] [address] [address] Social History Tobacco Use Types Packs/Day Years [...] on filedocumented in this encounter Care Teams Bulwark Carpenter Relationship Specialty Start Date End Date Migel Pineda MD PCP - General Internal Medicine 12/22/15 8 Carisa Armstrong MD PCP - General Internal Medicine 07/30/17 08/24/21 Raciel Escobedo [address] [place] [address] PCP - General Internal Medicine 08/25/21 06/13/22 Arlen Bray MD [address] [place] [address] PCP - General Internal Medicine 06/14/22 documented as of this encounter
--- OUTSIDE RECORDS SUMMARY | 2024-06-02 16:54 | XMS_ITS | Encounter Summary ---
Author Organization [facility] Address [address] [place] [address] Care Team Providers Care Jeweler Apprentice Name Role Phone Rainer Sanchez MD Primary Care Provider Unavailabl e Irene Lai DO Primary Care Pro vider Unavailable Migel Pineda MD Primary Care Provider Un available Carisa Armstrong MD Primary Care Provider Unavail able Raciel Escobedo Primary Care Provider [phone] Arlen Bray MD Primary Care Provider Unavailabl e Reason for Visit * Reason Onset Date Comments Faxed Order 01/13/2014 Encounter Details Date Type Department Care Team Description 01/13/2014 Telephone Adult [address] [address] NameRainer MD Faxed Order Social History Tobacco Use Types Packs/Day Years Used Date Smoking Tobacco: Never Smokeless Tobacco: Never Alcohol Use Standard Drinks/Week Comments No 0 (1 standard drink = 0.6 oz pur e alcohol) Sex Assigned at Date Recorded Not on file documented as of this encounter Miscellaneous Notes * Telephone Encounter - Ayse Ceja - 01/13/2014 2:07 PM EDT [facility] Please review and sign order documented in this encounter Plan of Treatment Not on file documented as of this encounter Visit Diagnoses Not on filedocumented in this encounter Care Teams Jeweler Apprentice Relationship Specialty Start Date End Date Rainer Sanchez MD PCP - General Internal Medicine 12/06/11 05/13/15 Irene Lai DO PCP - General Internal Medicine 05/14/15 12/21/15 Migel Pineda MD PCP - General Internal Medicine 12/22/15 8 Carisa Armstrong MD PCP - General Internal Medicine 07/30/17 08/24/21 Raciel Escobedo [address] [place] [address] PCP - General Internal Medicine 08/25/21 06/13/22 Arlen Bray MD [address] [place] [address] PCP - General Internal Medicine 06/14/22 documented as of this encounter
--- OUTSIDE RECORDS SUMMARY | 2024-06-02 16:54 | XMS_ITS | Encounter Summary ---
Author Organization [facility] Address [address] [place] [address] Care Team Providers Care Human Resources Benefits Specialist Name Role Phone Carisa Armstrong MD Primary Care Provider Unavail able Raciel Escobedo Primary Care Provider [phone] Arlen Bray MD Primary Care Provider Unavailabl e Encounter Details Date Type Department Care Team Description 03/18/2018 Telephone Adult [address] [address] Carisa Armstrong MD Social History Tobacco Use Types Packs/Day Years [...] on filedocumented in this encounter Care Teams Human Resources Benefits Specialist Relationship Specialty Start Date End Date Carisa Armstrong MD PCP - General Internal Medicine 07/30/17 08/24/21 Raciel Escobedo [address] [place] [address] [id number] PCP - General Internal Medicine 08/25/21 06/13/22 Arlen Bray MD [address] [place] [id number] PCP - General Internal Medicine 06/14/22 documented as of this encounter
--- OUTSIDE RECORDS SUMMARY | 2024-06-02 16:54 | XMS_ITS | Encounter Summary ---
Author Organization [facility] Address [address] [place] [address] Care Team Providers Care Net Sorter Name Role Phone Carisa Armstrong MD Primary Care Provider Unavail able Raciel Escobedo Primary Care Provider Arlen Bray MD Primary Care Provider Unavailabl e Encounter Details Date Type Department Care Team Description 11/19/2017 Refill Adult Medicine [address] [address] Carisa Armstrong MD Social History Tobacco Use [...] on filedocumented in this encounter Care Teams Net Sorter Relationship Specialty Start Date End Date Carisa Armstrong MD PCP - General Internal Medicine 07/30/17 08/24/21 Raciel Escobedo [address] [place] [address] [phone] PCP - General Internal Medicine 08/25/21 06/13/22 Arlen Bray MD [address] [place] [id number] PCP - General Internal Medicine 06/14/22 documented as of this encounter
--- OUTSIDE RECORDS SUMMARY | 2024-06-02 16:54 | XMS_ITS | Encounter Summary ---
Author Organization [facility] Address [address] [place] [address] Care Team Providers Care Director Of Officiating Name Role Phone Name, Rainer MULLINS Primary Care Provider Unavailabl e Irene Lai DO Primary Care Pro vider Unavailable Migel Pineda MD Primary Care Provider Un available Carisa Armstrong MD Primary Care Provider Unavail able Raciel Escobedo Primary Care Provider Arlen Bray MD Primary Care Provider Unavailabl e Encounter Details Date Type Department Care Team Description 08/06/2014 Business Doc Medical Records [address] [place] [address] Abstract, Provider Social History Tobacco Use Types [...] on filedocumented in this encounter Care Teams Director Of Officiating Relationship Specialty Start Date End Date Name, MD Rainer PCP - General Internal Medicine 12/06/11 05/13/15 Irene Lai DO PCP - General Internal Medicine 05/14/15 12/21/15 Migel Pineda MD PCP - General Internal Medicine 12/22/15 8 Carisa Armstrong MD PCP - General Internal Medicine 07/30/17 08/24/21 Raciel Escobedo [address] [place] [address] PCP - General Internal Medicine 08/25/21 06/13/22 Arlen Bray MD [address] [place] [id number] PCP - General Internal Medicine 06/14/22 documented as of this encounter
--- OUTSIDE RECORDS SUMMARY | 2024-06-02 16:54 | XMS_ITS | Encounter Summary ---
[facility] Address [address] [place] [address] Care Team Providers Care Manager Sas Name Role Phone Irene Lai DO Primary Care Pro vider Unavailable Migel Pineda MD Primary Care Provider Un available Carisa Armstrong MD Primary Care Provider Unavail able Racile Escobedo Primary Care Provider Arlen Bray MD Primary Care Provider Unavailabl e Encounter Details Date Type Department Care Team Description 08/09/2015 Home Health Certification Medical Records [address] [place] [address] Irene Lai DO Social History Tobacco Use Types Packs/Day Years [...] on filedocumented in this encounter Care Teams Manager Sas Relationship Specialty Start Date End Date Irene Lai DO PCP - General Internal Medicine 05/14/15 12/21/15 Migel Pineda MD PCP - General Internal Medicine 12/22/15 8 Carisa Armstrong MD PCP - General Internal Medicine 07/30/17 08/24/21 Raciel Escobedo [address] [place], [place] [phone] PCP - General Internal Medicine 08/25/21 06/13/22 Arlen Bray MD [address] [place] [address] PCP - General Internal Medicine 06/14/22 documented as of this encounter
--- OUTSIDE RECORDS SUMMARY | 2024-06-02 16:54 | XMS_ITS | Encounter Summary ---
Author Organization [facility] Address [address] [place] [address] Care Team Providers Care Woodwind Reeds Cutter Name Role Phone Carisa Armstrong MD Primary Care Provider Unavail able Raciel Escobedo Primary Care Provider [phone] Arlen Bray MD Primary Care Provider Unavailabl e Encounter Details Date Type Department Care Team Description 08/29/2017 Release of Information Medical Records [address] [place] [address] Abstract, Provider Social History Tobacco Use Types [...] on filedocumented in this encounter Care Teams Woodwind Reeds Cutter Relationship Specialty Start Date End Date Carisa Armstrong MD PCP - General Internal Medicine 07/30/17 08/24/21 Raciel Escobedo [address] [place] [address] [phone] PCP - General Internal Medicine 08/25/21 06/13/22 Arlen Bray MD [address] [place] [phone] PCP - General Internal Medicine 06/14/22 documented as of this encounter
--- OUTSIDE RECORDS SUMMARY | 2024-06-02 16:54 | XMS_ITS | Encounter Summary ---
[facility] Organization [facility] Address [address] [place] [address] Care Team Providers Care Art Objects Salesperson Name Role Phone Carisa Armstrong MD Primary Care Provider Unavail able Raciel Escobedo Primary Care Provider Arlen Bray MD Primary Care Provider Unavailabl e Reason for Visit * Reason Onset Date Comments Form 11/27/2017 Encounter Details Date Type Department Care Team Description 11/27/2017 Telephone Adult Medicine [address] [address] Carisa Armstrong MD Form Social History Tobacco Use Types Packs/Day Years Used Date Smoking Tobacco: Never Smokeless Tobacco: Never Alcohol Use Standard Drinks/Week Comments No 0 (1 standard drink = 0.6 oz pur e alcohol) Sex Assigned at Date Recorded Not on file documented as of this encounter Miscellaneous Notes * Telephone Encounter - Carleen Stroud - 11/27/2017 9:20 AM EDT Faxed order received from [employer], please sign date and fax back to [phone]. documented in this encounter Plan of Treatment Not on file documented as of this encounter Visit Diagnoses Not on filedocumented in this encounter Care Teams Art Objects Salesperson Relationship Specialty Start Date End Date Carisa Armstrong MD PCP - General Internal Medicine 07/30/17 08/24/21 Raciel Escobedo [address] [place] [address] PCP - General Internal Medicine 08/25/21 06/13/22 Arlen Bray MD [address] [place] [address] PCP - General Internal Medicine 06/14/22 documented as of this encounter
--- OUTSIDE RECORDS SUMMARY | 2024-06-02 16:54 | XMS_ITS | Encounter Summary ---
[facility] Organization [facility] Address [address] [place] [address] Care Team Providers Care Senior Production Planner Name Role Phone Carisa Armstrong MD Primary Care Provider Unavail able Raciel Escobedo Primary Care Provider [phone] Arlen Bray MD Primary Care Provider Unavailabl e Reason for Visit * Reason Onset Date Comments refill request 12/27/2017 Encounter Details Date Type Department Care Team Description 12/27/2017 Refill Adult Medicine [address] [address] Carisa Armstrong MD refill request Social History Tobacco Use Types Packs/Day Years Used Date Smoking Tobacco: Never Smokeless Tobacco: Never Alcohol Use Standard Drinks/Week Comments No 0 (1 standard drink = 0.6 oz pur e alcohol) Sex Assigned at Date Recorded Not on file documented as of this encounter Miscellaneous Notes * Telephone Encounter - Sherly Eyal - 12/27/2017 2:34 PM EDT Patient would like script to be: E-PRESCRIBED/FAXED TO PHARMACY WHEN WAS THE PATIENT'S LAST APPOINTMENT IN ADULT MEDICINE? 11/05/17 WHEN WAS THE LAST TIME THE PATIENT SAW THEIR PCP? Same as above Does patient have an upcoming appointment? No[facility] to refill request. Appt due (THE MEDICATION REQUESTED IS ON THE MED LIST ABOVE) All of the medications requested were on the CURRENT MEDS list Did you check the Pharmacy information above?: YES Patient wants: 30 -day supply Is this a mail order prescription request ? NO If the refill is from a FAXED refill request what is the RX # listed on the fax? N/A Patients current insurance carrier is: [place] / [place] / Product Type: MEDICARE [id number] documented in this encounter Plan of Treatment Not on file documented as of this encounter Visit Diagnoses Not on filedocumented in this encounter Care Teams Senior Production Planner Relationship Specialty Start Date End Date Carisa Armstrong MD PCP - General Internal Medicine 07/30/17 08/24/21 Raciel Escobedo [address] [place] [address] PCP - General Internal Medicine 08/25/21 06/13/22 Arlen Bray MD [address] [place] [address] PCP - General Internal Medicine 06/14/22 documented as of this encounter
--- OUTSIDE RECORDS SUMMARY | 2024-06-02 16:54 | XMS_ITS | Encounter Summary ---
Author Organization [facility] Address [address] [place] [address] Care Team Providers Care Stencil Cutter Name Role Phone Rainer Sanchez MD Primary Care Provider Unavailabl e Irene Lai DO Primary Care Pro vider Unavailable Migel Pineda MD Primary Care Provider Un available Carisa Armstrong MD Primary Care Provider Unavail able Raciel Escobedo Primary Care Provider Arlen Bray MD Primary Care Provider Unavailabl e Reason for Visit * Reason Onset Date Comments Faxed Order 03/16/2015 Encounter Details Date Type Department Care Team Description 03/16/2015 Telephone Adult [address] [address] Rainer Sanchez MD Faxed Order Social History Tobacco Use Types Packs/Day Years Used Date Smoking Tobacco: Never Smokeless Tobacco: Never Alcohol Use Standard Drinks/Week Comments No 0 (1 standard drink = 0.6 oz pur e alcohol) Sex Assigned at Date Recorded Not on file documented as of this encounter Miscellaneous Notes * Telephone Encounter - Jacqueline Meredith - 03/16/2015 4:03 PM EST Plan of care for Dr Sanchez's signature documented in this encounter Plan of Treatment Not on file documented as of this encounter Visit Diagnoses Not on filedocumented in this encounter Care Teams Stencil Cutter Relationship Specialty Start Date End Date Rainer Sanchez MD PCP - General Internal Medicine 12/06/11 05/13/15 Irene Lai DO PCP - General Internal Medicine 05/14/15 12/21/15 Migel Pineda MD PCP - General Internal Medicine 12/22/15 8 Carisa Armstrong MD PCP - General Internal Medicine 07/30/17 08/24/21 Raciel Escobedo [address] [place] [address] PCP - General Internal Medicine 08/25/21 06/13/22 Arlen Bray MD [address] [place] [address] PCP - General Internal Medicine 06/14/22 documented as of this encounter
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
--- OUTSIDE RECORDS SUMMARY | 2024-06-02 16:54 | XMS_ITS | Encounter Summary ---
Author Organization [facility] Address [address] [place] [address] Care Team Providers Care Sql Tech Name Role Phone Rainer Sanchez MD Primary Care Provider Unavailabl e Irene Lia DO Primary Care Pro vider Unavailable Migel Pineda MD Primary Care Provider Un available Carisa Armstrong MD Primary Care Provider Unavail able Raciel Escobedo Primary Care Provider [phone] Arlen Bray MD Primary Care Provider Unavailabl e Reason for Visit * Reason Onset Date Comments Faxed Order 04/28/2015 Encounter Details Date Type Department Care Team Description 04/28/[address] [address] Rainer Sanchez MD Faxed Order Social History Tobacco Use Types Packs/Day Years Used Date Smoking Tobacco: Never Smokeless Tobacco: Never Alcohol Use Standard Drinks/Week Comments No 0 (1 standard drink = 0.6 oz pur e alcohol) Sex Assigned at Date Recorded Not on file documented as of this encounter Miscellaneous Notes * Telephone Encounter - Jacqueline Meredith - 04/28/2015 11:55 AM EST Physician's interim order for Dr Sanchez's signature documented in this encounter Plan of Treatment Not on file documented as of this encounter Visit Diagnoses Not on filedocumented in this encounter Care Teams Sql Tech Relationship Specialty Start Date End Date Rainer Sanchez MD PCP - General Internal Medicine 8/8/12 1/14/16 Irene Lai DO PCP - General Internal Medicine 05/14/15 12/21/15 Migel Pineda MD PCP - General Internal Medicine 12/22/15 Carisa Armstrong MD PCP - General Internal Medicine 07/30/17 08/24/21 Raciel Escobedo [address] [place] [address] PCP - General Internal Medicine 08/25/21 06/13/22 [place] [address] PCP - General Internal Medicine 06/14/22 documented as of this encounter
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
--- OUTSIDE RECORDS SUMMARY | 2024-06-02 16:54 | XMS_ITS | Encounter Summary ---
Author Organization [facility] Address [address] [place] [address] Care Team Providers Care Pm Technician Name Role Phone Irene Lai DO Primary Care Pro vider Unavailable Migel Pineda MD Primary Care Provider Un available Carisa Armstrong MD Primary Care Provider Unavail able Raciel Escobedo Primary Care Provider [phone] Arlen Bray MD Primary Care Provider Unavailabl e Reason for Visit * Reason Onset Date Comments Faxed Order 10/20/2015 Encounter Details Date Type Department Care Team Description 10/20/2015 Telephone Adult Medicine [address] [address] Irene Lai DO Faxed Order Social History Tobacco Use Types Packs/Day Years Used Date Smoking Tobacco: Never Smokeless Tobacco: Never Alcohol Use Standard Drinks/Week Comments No 0 (1 standard drink = 0.6 oz pur e alcohol) Sex Assigned at Date Recorded Not on file documented as of this encounter Miscellaneous Notes * Telephone Encounter - Mahad Segal - 10/20/2015 1:59 PM EDT Please sign orders for compassionate home care, placed in Dr. Coulter's incoming documented in this encounter Plan of Treatment Not on file documented as of this encounter Visit Diagnoses Not on filedocumented in this encounter Care Teams Pm Technician Relationship Specialty Start Date End Date Irene Lai DO PCP - General Internal Medicine 05/14/15 12/21/15 Migel Pineda MD PCP - General Internal Medicine 12/22/15 8 Carisa Armstrong MD PCP - General Internal Medicine 07/30/17 08/24/21 Raciel Escobedo [address] [place] [address] PCP - General Internal Medicine 08/25/21 06/13/22 Arlen Bray MD [address] [place] [address] PCP - General Internal Medicine 06/14/22 documented as of this encounter
--- OUTSIDE RECORDS SUMMARY | 2024-06-02 16:54 | XMS_ITS | Encounter Summary ---
Author Organization [facility] Address [address] [place] [address] Care Team Providers Care Full Time Paramedic Name Role Phone Carisa Armstrong MD Primary Care Provider Unavail able Raciel Escobedo Primary Care Provider [phone] Arlen Bray MD Primary Care Provider Unavailabl e Encounter Details Date Type Department Care Team Description 04/04/2018 Lead Material Handler Report Medical Records [address] [place] [address] Abstract, Provider Social History Tobacco Use Types [...] on filedocumented in this encounter Care Teams Full Time Paramedic Relationship Specialty Start Date End Date Carisa Armstrong MD PCP - General Internal Medicine 07/30/17 08/24/21 Raciel Escobedo [address] [place] [id number] PCP - General Internal Medicine 08/25/21 06/13/22 Arlen Bray MD [address] [place] [address] PCP - General Internal Medicine 06/14/22 documented as of this encounter
--- OUTSIDE RECORDS SUMMARY | 2024-06-02 16:54 | XMS_ITS | Encounter Summary ---
[facility] Address [address] [place] [address] Care Team Providers Care Equal Opportunity Specialist Name Role Phone Irene Lai DO Primary Care Pro vider Unavailable Migel Pineda MD Primary Care Provider Un available Carisa Armstrong MD Primary Care Provider Unavail able Raciel Escobedo Primary Care Provider [phone] Arlen Bray MD Primary Care Provider Unavailabl e Reason for Visit * Reason Onset Date Comments Infection 06/22/2015 Encounter Details Date Type Department Care Team Description 06/22/2015 Telephone Adult [address] [address] Irene Lai DO Infection Social History Tobacco Use Types Packs/Day Years Used Date Smoking Tobacco: Never Smokeless Tobacco: Never Alcohol Use Standard Drinks/Week Comments No 0 (1 standard drink = 0.6 oz pur e alcohol) Sex Assigned at Date Recorded Not on file documented as of this encounter Miscellaneous Notes * Telephone Encounter - Dylan Vicente L.P.N. - 06/27/2015 10:47 AM EST Has an appt with Dr. Hobbs on 07/21 * Telephone Encounter - Mee Vargas R.N. - 06/22/2015 10:28 AM EST Pt called on 06/[address] hobbs. He advised her to complete the antibiotics and call when she was done and let us know how she is feeling. He suggested forwarding the information to the gi doctor for consideration. The number above does not connect, if reinaldo calls tessa get a number where he can be reached * Telephone Encounter - Ayse Flejasmina - 06/22/2015 9:49 AM EST Symptoms patient is presenting: patient finished antibotic She still feels bloated and her ribs hurt No appetite If pain or injury related was it due to an accident at work or from a motor vehicle accident? NO If yes, gather 3rd green party insurance information Date of accident/Injury: no How long has patient had these symptoms?: 1 week PCP: Irene Curry Payor: MEDICARE-[place] / Plan: MEDICARE-[place] [employer] / Product Type: MEDICARE [id number] documented in this encounter Plan of Treatment Not on file documented as of this encounter Visit Diagnoses Not on filedocumented in this encounter Care Teams Equal Opportunity Specialist Relationship Specialty Start Date End Date Irene Lai DO PCP - General Internal Medicine 05/14/15 12/21/15 Migel Pineda MD PCP - General Internal Medicine 12/22/15 8 Carisa Armstrong MD PCP - General Internal Medicine 07/30/17 08/24/21 Raciel Escobedo [address] [place] [address] PCP - General Internal Medicine 08/25/21 06/13/22 Arlen Bray MD [address] [place] [address] PCP - General Internal Medicine 06/14/22 documented as of this encounter
--- OUTSIDE RECORDS SUMMARY | 2024-06-02 16:54 | XMS_ITS | Encounter Summary ---
Author Organization [facility] Address [address] [place] [address] Care Team Providers Care Tetryl Blender Operator Name Role Phone Name, Rainer MULLINS Primary Care Provider Unavailabl e Irene Lai DO Primary Care Pro vider Unavailable Migel Pineda MD Primary Care Provider Un available Carisa Armstrong MD Primary Care Provider Unavail able Raciel Escobedo Primary Care Provider [phone] Arlen Bray MD Primary Care Provider Unavailabl e Encounter Details Date Type Department Care Team Description 03/19/2014 Home Health Certification Medical Records [address] [place] [address] Social History Tobacco Use Types Packs/Day Years [...] on filedocumented in this encounter Care Teams Tetryl Blender Operator Relationship Specialty Start Date End Date Name, MD Rainer PCP - General Internal Medicine 12/06/11 05/13/15 Irene Lai DO PCP - General Internal Medicine 05/14/15 12/21/15 Migel Pineda MD PCP - General Internal Medicine 12/22/15 8 Carisa Armstrong MD PCP - General Internal Medicine 07/30/17 08/24/21 Raciel Escobedo [address] [place] [address] PCP - General Internal Medicine 08/25/21 06/13/22 Arlen Bray MD [address] [place] [address] PCP - General Internal Medicine 06/14/22 documented as of this encounter
--- OUTSIDE RECORDS SUMMARY | 2024-06-02 16:54 | XMS_ITS | Encounter Summary ---
Author Organization [facility] Address [address] [place] [address] Care Team Providers Care Lag Screwer Name Role Phone Migel Pineda MD Primary Care Provider Un available Carisa Armstrong MD Primary Care Provider Unavail able Rcaiel Escobedo Primary Care Provider [phone] Arlen Bray MD Primary Care Provider Unavailabl e Reason for Visit * Reason Onset Date Comments Faxed Order 07/25/2016 [employer] ons Encounter Details Date Type Department Care Team Description 07/25/2016 Telephone Adult Medicine [address] [address] Migel Pineda MD Faxed Order ([facility]) Social History Tobacco Use Types Packs/Day Years Used Date Smoking Tobacco: Never Smokeless Tobacco: Never Alcohol Use Standard Drinks/Week Comments No 0 (1 standard drink = 0.6 oz pur e alcohol) Sex Assigned at Date Recorded Not on file documented as of this encounter Miscellaneous Notes * Telephone Encounter - Kim Palomares - 07/25/2016 1:26 PM EDT Please review, sign and fax back orderes to [facility] [phone]. documented in this encounter Plan of Treatment Not on file documented as of this encounter Visit Diagnoses Not on filedocumented in this encounter Care Teams Lag Screwer Relationship Specialty Start Date End Date Migel Pineda MD PCP - General Internal Medicine 12/22/15 8 Carisa Armstrong MD PCP - General Internal Medicine 07/30/17 08/24/21 Raciel Escobedo [address] [place] [address] PCP - General Internal Medicine 08/25/21 06/13/22 Arlen Bray MD [address] [place] [address] PCP - General Internal Medicine 06/14/22 documented as of this encounter
--- OUTSIDE RECORDS SUMMARY | 2024-06-02 16:54 | XMS_ITS | Encounter Summary ---
Author Organization [facility] Address [address] [place] [address] Care Team Providers Care Peanut Picker Name Role Phone Migel Pineda MD Primary Care Provider Un available Carisa Armstrong MD Primary Care Provider Unavail able Raciel Escobedo Primary Care Provider [phone] Arlen Bray MD Primary Care Provider Unavailabl e Reason for Visit * Reason Onset Date Comments Faxed Order 11/20/2016 Encounter Details Date Type Department Care Team Description 11/20/2016 Telephone Adult Medicine [address] [address] Migel Pineda MD Faxed Order Social History Tobacco Use Types Packs/Day Years Used Date Smoking Tobacco: Never Smokeless Tobacco: Never Alcohol Use Standard Drinks/Week Comments No 0 (1 standard drink = 0.6 oz pur e alcohol) Sex Assigned at Date Recorded Not on file documented as of this encounter Miscellaneous Notes * Telephone Encounter - Yolanda Vega - 11/20/2016 4:35 PM EDT MILLI FLOWER IS FAXING ORDERS TO BE SIGNED AND FAX BACK TO [phone] . documented in this encounter Plan of Treatment Not on file documented as of this encounter Visit Diagnoses Not on filedocumented in this encounter Care Teams Peanut Picker Relationship Specialty Start Date End Date Migel Pineda MD PCP - General Internal Medicine 12/22/15 8 Carisa Armstrong MD PCP - General Internal Medicine 07/30/17 08/24/21 Raciel Escobedo [address] [place] [address] PCP - General Internal Medicine 08/25/21 06/13/22 Arlen Bray MD [address] [place] [id number] PCP - General Internal Medicine 06/14/22 documented as of this encounter
--- OUTSIDE RECORDS SUMMARY | 2024-06-02 16:54 | XMS_ITS | Encounter Summary ---
Author Organization [facility] Address [address] [place] [address] Care Team Providers Care Window Shade Ring Sewer Name Role Phone Name, Rainer MULLINS Primary Care Provider Unavailabl e Ireen Lai DO Primary Care Pro vider Unavailable Migel Pineda MD Primary Care Provider Un available Carisa Armstrong MD Primary Care Provider Unavail able Raciel Escobedo Primary Care Provider [phone] Arlen Bray MD Primary Care Provider Unavailabl e Encounter Details Date Type Department Care Team Description 08/22/2012 Controlled Substance Contract with Plan Medical Records [address] [place] [address] Abstract, Provider Social History Tobacco Use Types Packs/Day Years Used Date Smoking Tobacco: Never Alcohol Use Standard Drinks/Week Comments No 0 (1 standard drink = 0.6 oz pur e alcohol) Sex Assigned at Date Recorded Not on file documented as of this encounter Plan of Treatment Not on file documented as of this encounter Visit Diagnoses Not on filedocumented in this encounter Care Teams Window Shade Ring Sewer Relationship Specialty Start Date End Date Name, MD Rainer PCP - General Internal Medicine 12/06/11 05/13/15 Irene Lai DO PCP - General Internal Medicine 05/14/15 12/21/15 Migel Pineda MD PCP - General Internal Medicine 12/22/15 8 Carisa Armstrong MD PCP - General Internal Medicine 07/30/17 08/24/21 Raciel Escobedo [address] [place] [address] PCP - General Internal Medicine 08/25/21 06/13/22 Arlen Bray MD [address] [place] [address] PCP - General Internal Medicine 06/14/22 documented as of this encounter
--- OUTSIDE RECORDS SUMMARY | 2024-06-02 16:54 | XMS_ITS | Encounter Summary ---
Author Organization [facility] Address [address] [place] [address] Care Team Providers Care Nuts And Bolts Assembler Name Role Phone Rainer Sanchez MD Primary Care Provider Unavailabl e Irene Lai DO Primary Care Pro vider Unavailable Migel Pineda MD Primary Care Provider Un available Carisa Armstrong MD Primary Care Provider Unavail able Raciel Escobedo Primary Care Provider [phone] Arlen Bray MD Primary Care Provider Unavailabl e Reason for Visit * Reason Onset Date Comments Faxed Order 05/10/2015 Encounter Details Date Type Department Care Team Description 05/10/2015 Telephone Adult [address] [address] Rainer Sanchez MD Faxed Order Social History Tobacco Use Types Packs/Day Years Used Date Smoking Tobacco: Never Smokeless Tobacco: Never Alcohol Use Standard Drinks/Week Comments No 0 (1 standard drink = 0.6 oz pur e alcohol) Sex Assigned at Date Recorded Not on file documented as of this encounter Miscellaneous Notes * Telephone Encounter - Jacqueline Meredith - 05/10/2015 4:12 PM EST Plan of care for Dr Sanchez's signature documented in this encounter Plan of Treatment Not on file documented as of this encounter Visit Diagnoses Not on filedocumented in this encounter Care Teams Nuts And Bolts Assembler Relationship Specialty Start Date End Date Rainer Sanchez MD PCP - General Internal Medicine 12/06/11 05/13/15 Irene Lai DO PCP - General Internal Medicine 05/14/15 12/21/15 Migel Pineda MD PCP - General Internal Medicine 12/22/15 8 Carisa Armstrong MD PCP - General Internal Medicine 07/30/17 08/24/21 Raciel Escobedo [address] [place] [address] PCP - General Internal Medicine 08/25/21 06/13/22 Arlen Bray MD [address] [place] [address] PCP - General Internal Medicine 06/14/22 documented as of this encounter
--- OUTSIDE RECORDS SUMMARY | 2024-06-02 16:54 | XMS_ITS | Encounter Summary ---
Author Organization [facility] Address [address] [place] [address] Care Team Providers Care Rv Body Mechanic Name Role Phone Migel Pineda MD Primary Care Provider Un available Carisa Armstrong MD Primary Care Provider Unavail able Raciel Escobedo Primary Care Provider [phone] Arlen Bray MD Primary Care Provider Unavailabl e Encounter Details Date Type Department Care Team Description 08/03/2016 Home Health Certification Medical Records [address] [place] [address] Irene Lai DO Social History Tobacco Use [...] on filedocumented in this encounter Care Teams Rv Body Mechanic Relationship Specialty Start Date End Date Migel Pineda MD PCP - General Internal Medicine 12/22/15 8 Carisa Armstrong MD PCP - General Internal Medicine 07/30/17 08/24/21 Raciel Escobedo [address] [place] [address] PCP - General Internal Medicine 08/25/21 06/13/22 Arlen Bray MD [address] [place] [id number] PCP - General Internal Medicine 06/14/22 documented as of this encounter
--- OUTSIDE RECORDS SUMMARY | 2024-06-02 16:54 | XMS_ITS | Encounter Summary ---
Author Organization [facility] Address [address] [place] [address] Care Team Providers Care Middle School Baseball Coach Name Role Phone Migel Pineda MD Primary Care Provider Un available Carisa Armstrong MD Primary Care Provider Unavail able Raciel Escobedo Primary Care Provider [phone] Arlen Bray MD Primary Care Provider Unavailabl e Encounter Details Date Type Department Care Team Description 12/26/2016 Home Health Certification Medical Records [address] [place] [address] Migel Pineda MD Social History Tobacco Use Types Packs/Day [...] on filedocumented in this encounter Care Teams Middle School Baseball Coach Relationship Specialty Start Date End Date Migel Pineda MD PCP - General Internal Medicine 12/22/15 8 Carisa Armstrong MD PCP - General Internal Medicine 07/30/17 08/24/21 Raciel Escobedo [address] [place] [id number] PCP - General Internal Medicine 08/25/21 06/13/22 Arlen Bray MD [address] [place] [id number] PCP - General Internal Medicine 06/14/22 documented as of this encounter
--- OUTSIDE RECORDS SUMMARY | 2024-06-02 16:54 | XMS_ITS | Encounter Summary ---
Author Organization [facility] Address [address] [place] [address] Care Team Providers Care Test Deskman Name Role Phone Name, Rainer MULLINS Primary Care Provider Unavailabl e Irene Lai DO Primary Care Pro vider Unavailable Migel Pineda MD Primary Care Provider Un available Carisa Armstrong MD Primary Care Provider Unavail able Raciel Escobedo Primary Care Provider [phone] Arlen Bray MD Primary Care Provider Unavailabl e Encounter Details Date Type Department Care Team Description 05/08/2012 Business Doc Medical Records [address] [place] [id number] Abstract, Provider Social History Tobacco Use Types [...] on filedocumented in this encounter Care Teams Test Deskman Relationship Specialty Start Date End Date Name, MD Rainer PCP - General Internal Medicine 12/06/11 05/13/15 Irene Lai DO PCP - General Internal Medicine 05/14/15 12/21/15 Migel Pineda MD PCP - General Internal Medicine 12/22/15 8 Carisa Armstrong MD PCP - General Internal Medicine 07/30/17 08/24/21 Raciel Escobedo [address] [place] [address] PCP - General Internal Medicine 08/25/21 06/13/22 Arlen Bray MD [address] [place] [address] PCP - General Internal Medicine 06/14/22 documented as of this encounter
--- OUTSIDE RECORDS SUMMARY | 2024-06-02 16:54 | XMS_ITS | Encounter Summary ---
Author Organization [facility] Address [address] [place] [address] Care Team Providers Care Livestock Agent Name Role Phone Migel Pineda MD Primary Care Provider Un available Carisa Armstrong MD Primary Care Provider Unavail able Raciel Escobedo Primary Care Provider [phone] Arlen Bray MD Primary Care Provider Unavailabl e Encounter Details Date Type Department Care Team Description 10/10/2016 Transfer Records Medical Records [address] [place] [id number] Abstract, Provider Social History Tobacco Use Types [...] on filedocumented in this encounter Care Teams Livestock Agent Relationship Specialty Start Date End Date Migel Pineda MD PCP - General Internal Medicine 12/22/15 8 Carisa Armstrong MD PCP - General Internal Medicine 07/30/17 08/24/21 Raciel Escobedo [address] [place] [address] [phone] PCP - General Internal Medicine 08/25/21 06/13/22 Arlen Bray MD [address] [place] [phone] PCP - General Internal Medicine 06/14/22 documented as of this encounter
--- OUTSIDE RECORDS SUMMARY | 2024-06-02 16:54 | XMS_ITS | Encounter Summary ---
Author Organization [facility] Address [address] [place] [address] Care Team Providers Care Backing In Machine Tender Name Role Phone Migel Pineda MD Primary Care Provider Un available Carisa Armstrong MD Primary Care Provider Unavail able Raciel Escobedo Primary Care Provider [phone] Arlen Bray MD Primary Care Provider Unavailabl e Encounter Details Date Type Department Care Team Description 10/23/2016 [facility] Medical Records [address] [place] [address] Abstract, Provider Social History Tobacco Use Types [...] on filedocumented in this encounter Care Teams Backing In Machine Tender Relationship Specialty Start Date End Date Migel Pineda MD PCP - General Internal Medicine 12/22/15 8 Carisa Armstrong MD PCP - General Internal Medicine 07/30/17 08/24/21 Raciel Escobedo [address] [place] [phone] PCP - General Internal Medicine 08/25/21 06/13/22 Arlen Bray MD [address] [place] [phone] PCP - General Internal Medicine 06/14/22 documented as of this encounter
--- OUTSIDE RECORDS SUMMARY | 2024-06-02 16:54 | XMS_ITS | Encounter Summary ---
Author Organization [facility] Address [address] [place] [address] Care Team Providers Care Teacher'S Aide Name Role Phone Irene Lai DO Primary Care Pro vider Unavailable Migel Pineda MD Primary Care Provider Un available Carisa Armstrong MD Primary Care Provider Unavail able Raciel Escobedo Primary Care Provider [phone] Arlen Bray MD Primary Care Provider Unavailabl e Encounter Details Date Type Department Care Team Description 08/05/2015 Orders Only Adult Medicine [address] [address] Irene Lai DO Right-sided low back pain without sciatica (Primary Dx) Social History Tobacco Use Types Packs/Day Years Used Date Smoking Tobacco: Never Smokeless Tobacco: Never Alcohol Use Standard Drinks/Week Comments No 0 (1 standard drink = 0.6 oz pur e alcohol) Sex Assigned at Date Recorded Not on file documented as of this encounter Plan of Treatment Not on file documented as of this encounter Results * X-RAY EXAM OF LOWER SPINE WITH OBLIQUES (08/06/2015 12:12 PM EDT) 08/06/2015 12:4 0 PM EDT Impressions [facility] - 08/06/2015 12:41 PM EDT IMPRESSION: Normal lumbar spine series. Narrative [facility] - 08/06/2015 12:41 PM EDT LUMBAR SPINE SERIES: History: Back pain 4 views. Lumbar spine is normally aligned. Intervertebral disc spaces are well-maintained. No spondylolysis or spondylolisthesis is seen. No fracture or focal vertebral pathology is noted. Faint calcification abdominal aorta. Procedure Note aJtin Lopez MD - 08/06/2015 LUMBAR SPINE SERIES: History: Back pain 4 views. Lumbar spine is normally aligned. Intervertebral disc spaces arewell-maintained. No spondylolysis or spondylolisthesis is seen. No fracture or focal vertebralpathology is noted. Faint calcification abdominal aorta. IMPRESSION: Normal lumbar spine series. Irene Wade DO RADIOLOGY [facility] documented in this encounter Visit Diagnoses Diagnosis Right-sided low back pain without sciatica- Primary Right-sided low back pain without sciatica documented in this encounter Care Teams Teacher'S Aide Relationship Specialty Start Date End Date Irene Lai DO PCP - General Internal Medicine 05/14/15 12/21/15 Migel Pineda MD PCP - General Internal Medicine 12/22/15 8 Carisa Armstrong MD PCP - General Internal Medicine 07/30/17 08/24/21 Raciel Escobedo [address] [place] [address] PCP - General Internal Medicine 08/25/21 06/13/22 Arlen Bray MD [address] [place] [address] PCP - General Internal Medicine 06/14/22 documented as of this encounter
--- OUTSIDE RECORDS SUMMARY | 2024-06-02 16:54 | XMS_ITS | Encounter Summary ---
Author Organization [facility] Address [address] [place] [address] Care Team Providers Care Hop Farmer Name Role Phone Migel Pineda MD Primary Care Provider Un available Carisa Armstrong MD Primary Care Provider Unavail able Raciel Escobedo Primary Care Provider [phone] Arlen Bray MD Primary Care Provider Unavailabl e Encounter Details Date Type Department Care Team Description 06/08/2017 Home Health Certification Medical Records [address] [place] [address] Vna Social History Tobacco Use Types Packs/Day Years [...] on filedocumented in this encounter Care Teams Hop Farmer Relationship Specialty Start Date End Date Migel Pineda MD PCP - General Internal Medicine 12/22/15 8 Carisa Armstrong MD PCP - General Internal Medicine 07/30/17 08/24/21 Raciel Escobedo [address] [place], [place] [phone] PCP - General Internal Medicine 08/25/21 06/13/22 Arlen Bray MD [address] [place] [id number] PCP - General Internal Medicine 06/14/22 documented as of this encounter
--- OUTSIDE RECORDS SUMMARY | 2024-06-02 16:54 | XMS_ITS | Encounter Summary ---
Author Organization [facility] Address [address] [place] [address] Care Team Providers Care Senior Landscape Architect Name Role Phone Name, Rainer MULLINS Primary Care Provider Unavailabl e Irene Lai DO Primary Care Pro vider Unavailable Migel Pineda MD Primary Care Provider Un available aCrisa Armstrong MD Primary Care Provider Unavail able Raciel Escobedo Primary Care Provider Arlen Bray MD Primary Care Provider Unavailabl e Reason for Visit * Reason Onset Date Comments Faxed Order 10/02/2013 [facility] Encounter Details Date Type Department Care Team Description 10/02/2013 Telephone Adult [address] [address] Name, MD Rainer Faxed Order ([facility]) Social History Tobacco Use Types Packs/Day Years Used Date Smoking Tobacco: Never Smokeless Tobacco: Never Alcohol Use Standard Drinks/Week Comments No 0 (1 standard drink = 0.6 oz pur e alcohol) Sex Assigned at Date Recorded Not on file documented as of this encounter Miscellaneous Notes * Telephone Encounter - Kim Palomares - 10/02/2013 11:44 AM EDT Please sign and fax back order to [facility] at [phone]. documented in this encounter Plan of Treatment Not on file documented as of this encounter Visit Diagnoses Not on filedocumented in this encounter Care Teams Senior Landscape Architect Relationship Specialty Start Date End Date Name, MD Rainer PCP - General Internal Medicine 12/06/11 05/13/15 Irene Lai DO PCP - General Internal Medicine 05/14/15 12/21/15 Migel Pineda MD PCP - General Internal Medicine 12/22/15 Carisa Armstrong MD PCP - General Internal Medicine 07/30/17 08/24/21 Raciel Escobedo [address] [place] [address] PCP - General Internal Medicine 08/25/21 06/13/22 Arlen Bray MD [address] [place] [address] PCP - General Internal Medicine 06/14/22 documented as of this encounter
--- OUTSIDE RECORDS SUMMARY | 2024-06-02 16:54 | XMS_ITS | Encounter Summary ---
Author Organization [facility] Address [address] [place] [address] Care Team Providers Care Counter Helper Name Role Phone Migel Pineda MD Primary Care Provider Un available Carisa Armstrong MD Primary Care Provider Unavail able Raciel Escobedo Primary Care Provider [phone] Arlen Bray MD Primary Care Provider Unavailabl e Encounter Details Date Type Department Care Team Description 07/20/2016 [facility] Medical Records [address] [place] [address] Abstract, Provider Social History Tobacco Use Types [...] on filedocumented in this encounter Care Teams Counter Helper Relationship Specialty Start Date End Date Migel Pineda MD PCP - General Internal Medicine 12/22/15 8 Carisa Armstrong MD PCP - General Internal Medicine 07/30/17 08/24/21 Raciel Escobedo [address] [place] [address] [phone] PCP - General Internal Medicine 08/25/21 06/13/22 Arlen Bray MD [address] [place] [phone] PCP - General Internal Medicine 06/14/22 documented as of this encounter
--- OUTSIDE RECORDS SUMMARY | 2024-06-02 16:54 | XMS_ITS | Encounter Summary ---
Author Organization [facility] Address [address] [place] [address] Care Team Providers Care Marketing Recruiter Name Role Phone Lena Armstrong MD Primary Care Provider Unavail able Raciel Escobedo Primary Care Provider [phone] Arlen Bray MD Primary Care Provider Unavailabl e Reason for Visit * Reason Onset Date Comments Provider Call Back 08/14/2017 Encounter Details Date Type Department Care Team Description 08/14/2017 Telephone Adult Medicine [address] [address] Lena Armstrong MD Provider Call Back Social History Tobacco Use Types Packs/Day Years Used Date Smoking Tobacco: Never Smokeless Tobacco: Never Alcohol Use Standard Drinks/Week Comments No 0 (1 standard drink = 0.6 oz pur e alcohol) Sex Assigned at Date Recorded Not on file documented as of this encounter Miscellaneous Notes * Telephone Encounter - Carleen Stroud - 08/14/2017 8:57 AM EDT Caller requesting call back from provider: LENA MATTHEWS Is the caller the patient? NO If caller is not the patient, what is the callers name? Al Stroud Callers relationship to patient? Son If person calling is not the patient themselves, is there a verbal release in FYI or permanent comments for this person: YES Reason for call back: Patient was informed last visit ( encounter 08-01-16) that they would be referred to gastro but the have not received a phone call regarding an appointment. Patient called the gastro department that there is no refer for her there. Was told to contact PCP. Caller offered to speak with the nurse for assistance: YES Response: Patient offered to speak with nurse for assistance and patient agreed. Message forwarded to nurse. documented in this encounter Plan of Treatment Not on file documented as of this encounter Visit Diagnoses Not on filedocumented in this encounter Care Teams Marketing Recruiter Relationship Specialty Start Date End Date Lena Armstrong MD PCP - General Internal Medicine 07/30/17 08/24/21 Raciel Escobedo [address] [place] [address] PCP - General Internal Medicine 08/25/21 06/13/22 Arlen Bray MD [address] [place] [address] PCP - General Internal Medicine 06/14/22 documented as of this encounter
--- OUTSIDE RECORDS SUMMARY | 2024-06-02 16:54 | XMS_ITS | Encounter Summary ---
Author Organization [facility] Address [address] [place] [address] Care Team Providers Care Hand Mexican Food Maker Name Role Phone Migel Pineda MD Primary Care Provider Un available Carisa Armstrong MD Primary Care Provider Unavail able Raciel Escobedo Primary Care Provider [phone] Arlen Bray MD Primary Care Provider Unavailabl e Reason for Visit * Reason Onset Date Comments other 05/22/2017 bad taste in thi th Encounter Details Date Type Department Care Team Description 05/22/2017 Telephone Gastroenterology - [address] [address] Partha Villasenor MD other (bad taste in mouth) Social History Tobacco Use Types Packs/Day Years Used Date Smoking Tobacco: Never Smokeless Tobacco: Never Alcohol Use Standard Drinks/Week Comments No 0 (1 standard drink = 0.6 oz pur e alcohol) Sex Assigned at Date Recorded Not on file documented as of this encounter Miscellaneous Notes * Telephone Encounter - Melody Roblero - 05/22/2017 11:08 AM EST Message relayed to Al, tanvi will call patients pcp * Telephone Encounter - Partha Villasenor MD - 05/22/2017 10:04 AM EST Please inform her son that this is something that would be appropriate to go over with pat's PCP. * Telephone Encounter - Melody Roblero - 05/22/2017 9:55 AM EST Patients son Al (vr) is calling because patient has been having a bad taste in her mouth, they were told by pharmacist that it could be related to her stomach. Please call Al at [phone], he says he doesn't know what to do. Please advise, thank you! documented in this encounter Plan of Treatment Not on file documented as of this encounter Visit Diagnoses Not on filedocumented in this encounter Care Teams Hand Mexican Food Maker Relationship Specialty Start Date End Date Migel Pineda MD PCP - General Internal Medicine 12/22/15 8 Carisa Armstrong MD PCP - General Internal Medicine 07/30/17 08/24/21 Raciel Escobedo [address] [place] [address] PCP - General Internal Medicine 08/25/21 06/13/22 Arlen Bray MD [address] [place] [address] PCP - General Internal Medicine 06/14/22 documented as of this encounter
--- OUTSIDE RECORDS SUMMARY | 2024-06-02 16:54 | XMS_ITS | Encounter Summary ---
Author Organization [facility] Address [address] [place] [address] Care Team Providers Care Lapel Baster Name Role Phone Carisa Armstrong MD Primary Care Provider Unavail able Raciel Escobedo Primary Care Provider [phone] Arlen Bray MD Primary Care Provider Unavailabl e Encounter Details Date Type Department Care Team Description 08/02/2017 Home Health Certification Medical Records [address] [place] [address] Irene Lai DO Social History Tobacco Use [...] on filedocumented in this encounter Care Teams Lapel Baster Relationship Specialty Start Date End Date Carisa Armstrong MD PCP - General Internal Medicine 07/30/17 08/24/21 Raciel Escobedo [address] [place] [address] [phone] PCP - General Internal Medicine 08/25/21 06/13/22 Arlen Bray MD [address] [place] [id number] PCP - General Internal Medicine 06/14/22 documented as of this encounter
--- OUTSIDE RECORDS SUMMARY | 2024-06-02 16:54 | XMS_ITS | Encounter Summary ---
Author Organization [facility] Address [address] [place] [address] Care Team Providers Care Bacteriology Professor Name Role Phone Carisa Armstrong MD Primary Care Provider Unavail able Raciel Escobedo Primary Care Provider [phone] Arlen Bray MD Primary Care Provider Unavailabl e Reason for Visit * Reason Onset Date Comments Faxed Order 08/14/2017 Encounter Details Date Type Department Care Team Description 08/14/2017 Telephone Adult Medicine [address] [address] Carisa Armstrong MD Faxed Order Social History Tobacco Use Types Packs/Day Years Used Date Smoking Tobacco: Never Smokeless Tobacco: Never Alcohol Use Standard Drinks/Week Comments No 0 (1 standard drink = 0.6 oz pur e alcohol) Sex Assigned at Date Recorded Not on file documented as of this encounter Miscellaneous Notes * Telephone Encounter - Yolanda Vega - 08/14/2017 5:[address] [facility] IS FAXING ORDERS TO BE SIGNED AND FAX BACK TO [phone]. documented in this encounter Plan of Treatment Not on file documented as of this encounter Visit Diagnoses Not on filedocumented in this encounter Care Teams Bacteriology Professor Relationship Specialty Start Date End Date Carisa Armstrong MD PCP - General Internal Medicine 07/30/17 08/24/21 Raciel Escobedo [address] [place] [address] PCP - General Internal Medicine 08/25/21 06/13/22 Arlen Bray MD [address] [place] [id number] PCP - General Internal Medicine 06/14/22 documented as of this encounter
--- OUTSIDE RECORDS SUMMARY | 2024-06-02 16:54 | XMS_ITS | Encounter Summary ---
Author Organization [facility] Address [address] [place] [address] Care Team Providers Care Flatwork Assembler Name Role Phone Irene Lai DO Primary Care Pro vider Unavailable Migel Pineda MD Primary Care Provider Un available Carisa Armstrong MD Primary Care Provider Unavail able Raciel Escobedo Primary Care Provider [phone] Arlen Bray MD Primary Care Provider Unavailabl e Reason for Visit * Reason Onset Date Comments APPOINTMENT 07/21/2015 Encounter Details Date Type Department Care Team Description 07/21/2015 Telephone Adult [address] [address] Irene Lai DO APPOINTMENT Social History Tobacco Use Types Packs/Day Years Used Date Smoking Tobacco: Never Smokeless Tobacco: Never Alcohol Use Standard Drinks/Week Comments No 0 (1 standard drink = 0.6 oz pur e alcohol) Sex Assigned at Date Recorded Not on file documented as of this encounter Miscellaneous Notes * Telephone Encounter - Mee Vargas R.N. - 07/21/2015 12:50 PM EDT Pt rebooked for 08/[address] Irene Curry * Telephone Encounter - Wendy Guardado - 07/21/2015 12:40 PM EDT Patient needs appt elmer , tramaine najera [phone] * Telephone Encounter - Diana Spivey - 07/21/2015 10:59 AM EDT Patient was supposed to be seen on 07/20/15, but we cancelled the appointment per center request dueto Dr. Coulter having emergency. Patient needs a replacement appointment. I have nothing open until August. Patient needs to see Prior to that. documented in this encounter Plan of Treatment Not on file documented as of this encounter Visit Diagnoses Not on filedocumented in this encounter Care Teams Flatwork Assembler Relationship Specialty Start Date End Date Irene Lai DO PCP - General Internal Medicine 05/14/15 12/21/15 Migel Pineda MD PCP - General Internal Medicine 12/22/15 8 Carisa Armstrong MD PCP - General Internal Medicine 07/30/17 08/24/21 Raciel Escobedo [address] [place] [address] PCP - General Internal Medicine 08/25/21 06/13/22 Arlen Bray MD [address] [place] [address] PCP - General Internal Medicine 06/14/22 documented as of this encounter
--- OUTSIDE RECORDS SUMMARY | 2024-06-02 16:54 | XMS_ITS | Encounter Summary ---
Author Organization [facility] Address [address] [place] [address] Care Team Providers Care Consultant In Ergonomics And Safety Name Role Phone Carisa Armstrong MD Primary Care Provider Unavail able Raciel Escobedo Primary Care Provider [phone] Arlen Bray MD Primary Care Provider Unavailabl e Encounter Details Date Type Department Care Team Description 08/02/2017 Home Health Certification Medical Records [address] [place] [id number] Abstract, Provider Social History Tobacco Use Types [...] on filedocumented in this encounter Care Teams Consultant In Ergonomics And Safety Relationship Specialty Start Date End Date Carisa Armstrong MD PCP - General Internal Medicine 07/30/17 08/24/21 Raciel Escobedo [address] [place] [id number] PCP - General Internal Medicine 08/25/21 06/13/22 Arlen Bray MD [address] [place] [address] PCP - General Internal Medicine 06/14/22 documented as of this encounter
--- OUTSIDE RECORDS SUMMARY | 2024-06-02 16:54 | XMS_ITS | Encounter Summary ---
Author Organization [facility] Address [address] [place] [address] Care Team Providers Care Turkey Pinner Name Role Phone Carisa Armstrong MD Primary Care Provider Unavail able Raciel Escobedo Primary Care Provider [phone] Arlen Bray MD Primary Care Provider Unavailabl e Reason for Visit * Reason Onset Date Comments Faxed Order 12/26/2017 Encounter Details Date Type Department Care Team Description 12/26/2017 Telephone Adult Medicine [address] [address] Carisa Armstrong MD Faxed Order Social History Tobacco Use Types Packs/Day Years Used Date Smoking Tobacco: Never Smokeless Tobacco: Never Alcohol Use Standard Drinks/Week Comments No 0 (1 standard drink = 0.6 oz pur e alcohol) Sex Assigned at Date Recorded Not on file documented as of this encounter Miscellaneous Notes * Telephone Encounter - Sherly Birch - 12/26/2017 3:22 PM EDT Please sign and fax back orders to samir wang [facility] Fax [phone] documented in this encounter Plan of Treatment Not on file documented as of this encounter Visit Diagnoses Not on filedocumented in this encounter Care Teams Turkey Pinner Relationship Specialty Start Date End Date Carisa Armstrong MD PCP - General Internal Medicine 07/30/17 08/24/21 Raciel Escobedo [address] [place] [address], [place] [address] PCP - General Internal Medicine 08/25/21 06/13/22 Arlen Bray MD [address] [place] [address] PCP - General Internal Medicine 06/14/22 documented as of this encounter
--- OUTSIDE RECORDS SUMMARY | 2024-06-02 16:54 | XMS_ITS | Encounter Summary ---
Author Organization [facility] Address [address] [place] [address] Care Team Providers Care Surface Miner Name Role Phone Migel Pineda MD Primary Care Provider Un available Carisa Armstrong MD Primary Care Provider Unavail able Raciel Escobedo Primary Care Provider [phone] Arlen Bray MD Primary Care Provider Unavailabl e Encounter Details Date Type Department Care Team Description 06/12/2016 Controlled Substance Contract with Plan Medical Records [address] [place] [id number] Abstract, Provider Social History Tobacco Use Types [...] on filedocumented in this encounter Care Teams Surface Miner Relationship Specialty Start Date End Date Migel Pineda MD PCP - General Internal Medicine 12/22/15 8 Carisa Armstrong MD PCP - General Internal Medicine 07/30/17 08/24/21 Raciel Escobedo [address] [place], [place] [id number] PCP - General Internal Medicine 08/25/21 06/13/22 Arlen Bray MD [address] [place] [address] PCP - General Internal Medicine 06/14/22 documented as of this encounter
--- OUTSIDE RECORDS SUMMARY | 2024-06-02 16:54 | XMS_ITS | Encounter Summary ---
Author Organization [facility] Address [address] [place] [address] Care Team Providers Care Casino Controller Name Role Phone Migel Pineda MD Primary Care Provider Un available Carisa Armstrong MD Primary Care Provider Unavail able Raciel Escobedo Primary Care Provider [phone] Arlen Bray MD Primary Care Provider Unavailabl e Encounter Details Date Type Department Care Team Description 10/17/2016 Orders Only Adult Medicine [address] [address] Migel Pineda MD Screening for colon cancer Social History Tobacco Use Types Packs/Day Years Used Date Smoking Tobacco: Never Smokeless Tobacco: Never Alcohol Use Standard Drinks/Week Comments No 0 (1 standard drink = 0.6 oz pur e alcohol) Sex Assigned at Date Recorded Not on file documented as of this encounter Plan of Treatment Not on file documented as of this encounter Procedures Procedure Name Priority Date/Time Associated Diagnosis Comments CHG BLOOD OCCULT FECAL HGB DETER IA QUAL FECES 1-3 Routine 10/17/2016 Screening for colon cancer documented in this encounter Results * BLOOD OCCULT QUAL FECAL HEMGLBN (10/17/2016) OCCULT BLOOD, STOOL neg INTERNAL CONTROL VALID yes Stool 10/17/2016 Partha Villasenor MD LAB documented in this encounter Visit Diagnoses Diagnosis Screening for colon cancer Special screening for malignant neoplasms, colon documented in this encounter Care Teams Casino Controller Relationship Specialty Start Date End Date Migel Pineda MD PCP - General Internal Medicine 12/22/15 8 Carisa Armstrong MD PCP - General Internal Medicine 07/30/17 08/24/21 Raciel Escobedo [address] [place], [place] [phone] PCP - General Internal Medicine 08/25/21 06/13/22 Arlen Bray MD [address] [place] [address] PCP - General Internal Medicine 06/14/22 documented as of this encounter
--- OUTSIDE RECORDS SUMMARY | 2024-06-02 16:55 | XMS_ITS | Encounter Summary ---
Author Organization [facility] Address [address] [place] [address] Care Team Providers Care Lead Section Supervisor Name Role Phone Rainer Sanchez MD Primary Care Provider Unavailabl e Irene Lai DO Primary Care Pro vider Unavailable Migel Pineda MD Primary Care Provider Un available Carisa Armstrong MD Primary Care Provider Unavail able Raciel Escobedo Primary Care Provider [phone] Arlen Bray MD Primary Care Provider Unavailabl e Reason for Visit * Reason Onset Date Comments Faxed Order 04/02/2015 Encounter Details Date Type Department Care Team Description 04/02/2015 Telephone Adult [address] [address] NameRainer MD Faxed Order Social History Tobacco Use Types Packs/Day Years Used Date Smoking Tobacco: Never Smokeless Tobacco: Never Alcohol Use Standard Drinks/Week Comments No 0 (1 standard drink = 0.6 oz pur e alcohol) Sex Assigned at Date Recorded Not on file documented as of this encounter Miscellaneous Notes * Telephone Encounter - Diana Spivey - 04/02/2015 3:43 PM EST FAXED ORDERS, PLACED IN BIN. documented in this encounter Plan of Treatment Not on file documented as of this encounter Visit Diagnoses Not on filedocumented in this encounter Care Teams Lead Section Supervisor Relationship Specialty Start Date End Date Rainer Sanchez MD PCP - General Internal Medicine 12/06/11 05/13/15 Irene Lai DO PCP - General Internal Medicine 05/14/15 12/21/15 Migel Pineda MD PCP - General Internal Medicine 12/22/15 Carisa Armstrong MD PCP - General Internal Medicine 07/30/17 08/24/21 Raciel Escobedo [address] [place] [address] PCP - General Internal Medicine 08/25/21 06/13/22 Arlen Bray MD [address] [place] [address] PCP - General Internal Medicine 06/14/22 documented as of this encounter
--- OUTSIDE RECORDS SUMMARY | 2024-06-02 16:55 | XMS_ITS | Encounter Summary ---
Author Organization [facility] Address [address] [place] [address] Care Team Providers Care Freight Team Associate Name Role Phone Migel Pineda MD Primary Care Provider Un available Carisa Armstrong MD Primary Care Provider Unavail able Raciel Escobedo Primary Care Provider [phone] Arlen Bray MD Primary Care Provider Unavailabl e Encounter Details Date Type Department Care Team Description 02/20/2016 Orders Only Adult Medicine [address] [address] Migel Pineda MD CKD (chronic kidney disease), stage 3 (moderate); KEN positive; Chronic bilateral low back pain without sciatica; Anxiety Social History Tobacco Use Types Packs/Day Years Used Date Smoking Tobacco: Never Smokeless Tobacco: Never Alcohol Use Standard Drinks/Week Comments No 0 (1 standard drink = 0.6 oz pur e alcohol) Sex Assigned at Date Recorded Not on file documented as of this encounter Plan of Treatment Not on file documented as of this encounter Visit Diagnoses Diagnosis CKD (chronic kidney disease), stage 3 (moderate) KEN positive Other and unspecified nonspecific immunological findings Chronic bilateral low back pain without sciatica Anxiety Anxiety state, unspecified documented in this encounter Care Teams Freight Team Associate Relationship Specialty Start Date End Date Migel Pineda MD PCP - General Internal Medicine 12/22/15 8 Carisa Armstrong MD PCP - General Internal Medicine 07/30/17 08/24/21 Raciel Escobedo [address] [place], [place] [phone] PCP - General Internal Medicine 08/25/21 06/13/22 Arlen Bray MD [address] [place] [address] PCP - General Internal Medicine 06/14/22 documented as of this encounter
--- OUTSIDE RECORDS SUMMARY | 2024-06-02 16:55 | XMS_ITS | Encounter Summary ---
Author Organization [facility] Address [address] [place] [address] Care Team Providers Care Property Developer Name Role Phone Migel Pineda MD Primary Care Provider Un available Carisa Armstrong MD Primary Care Provider Unavail able Raciel Escobedo Primary Care Provider [phone] Arlen Bray MD Primary Care Provider Unavailabl e Encounter Details Date Type Department Care Team Description 04/20/2017 Business Doc Medical Records [address] [place] [id number] Abstract, Provider Social History Tobacco Use Types [...] on filedocumented in this encounter Care Teams Property Developer Relationship Specialty Start Date End Date Migel Pineda MD PCP - General Internal Medicine 12/22/15 8 Carisa Armstrong MD PCP - General Internal Medicine 07/30/17 08/24/21 Raciel Escobedo [address] [place] [phone] PCP - General Internal Medicine 08/25/21 06/13/22 Arlen Bray MD [address] [place] [address] PCP - General Internal Medicine 06/14/22 documented as of this encounter
--- OUTSIDE RECORDS SUMMARY | 2024-06-02 16:55 | XMS_ITS | Encounter Summary ---
Author Organization [employer] [facility] Address [address] [place] [address] Care Team Providers Care Plant Controls Specialist Name Role Phone Migel Pineda MD Primary Care Provider Un available Carisa Armstrong MD Primary Care Provider Unavail able Raciel Escobedo Primary Care Provider [phone] Arlen Bray MD Primary Care Provider Unavailabl e Encounter Details Date Type Department Care Team Description 01/20/2016 [facility] Medical Records [address] [place] [address] Abstract, Provider Social History Tobacco Use Types [...] on filedocumented in this encounter Care Teams Plant Controls Specialist Relationship Specialty Start Date End Date Migel Pineda MD PCP - General Internal Medicine 12/22/15 8 Carisa Armstrong MD PCP - General Internal Medicine 07/30/17 08/24/21 Raciel Escobedo [address] [place] [id number] PCP - General Internal Medicine 08/25/21 06/13/22 Arlen Bray MD [address] [place] [address] PCP - General Internal Medicine 06/14/22 documented as of this encounter
--- OUTSIDE RECORDS SUMMARY | 2024-06-02 16:55 | XMS_ITS | Encounter Summary ---
Author Organization [facility] [facility] Address [address] [place] [address] Care Team Providers Care Wool Grader Name Role Phone Migel Pineda MD Primary Care Provider Un available Carisa Armstrong MD Primary Care Provider Unavail able Raciel Escobedo Primary Care Provider [phone] Arlen Bray MD Primary Care Provider Unavailabl e Encounter Details Date Type Department Care Team Description 02/22/2016 [facility] Medical Records [address] [place] [address] Abstract, Provider Social History Tobacco Use Types [...] on filedocumented in this encounter Care Teams Wool Grader Relationship Specialty Start Date End Date Migel Pineda MD PCP - General Internal Medicine 12/22/15 8 Carisa Armstrong MD PCP - General Internal Medicine 07/30/17 08/24/21 Raciel Escobedo [address] [place] [phone] PCP - General Internal Medicine 08/25/21 06/13/22 Arlen Bray MD [address] [place] [address] PCP - General Internal Medicine 06/14/22 documented as of this encounter
--- OUTSIDE RECORDS SUMMARY | 2024-06-02 16:55 | XMS_ITS | Encounter Summary ---
Author Organization [facility] Address [address] [place] [address] Care Team Providers Care Tack Driller Name Role Phone Carisa Armstrong MD Primary Care Provider Unavail able Raciel Escobedo Primary Care Provider [phone] Arlen Bray MD Primary Care Provider Unavailabl e Reason for Visit * Reason Comments E-prescribe Rx Request Encounter Details Date Type Department Care Team Description 08/23/2021 Refill Gastroenterology - [place] [address] [facility] [address] [place] [address] Carisa Armstrong MD E-prescribe Rx Request Social History Tobacco Use Types Packs/Day Years Used Date Smoking Tobacco: Never Smokeless Tobacco: Never Alcohol Use Standard Drinks/Week Comments No 0 (1 standard drink = 0.6 oz pur e alcohol) Sex Assigned at Date Recorded Not on file documented as of this encounter Miscellaneous Notes * Telephone Encounter - Mee Vargas R.N. - 08/25/2021 3:29 PM EDT I left a message for the patient to return my call. Pt needs to be seen for this , needs traige * Telephone Encounter - Maritza Horner M.A. - 08/25/2021 3:07 PM EDT Last office visit 11/05/17 Next office visit 12/20/21 with new PCP Pt not seen in almost 4 years. Please triage. * Telephone Encounter - Jose - 08/25/2021 3:03 PM EDT Patient would like script to be: E-PRESCRIBED/FAXED TO PHARMACY WHEN WAS THE PATIENT'S LAST APPOINTMENT IN ADULT MEDICINE? 11/05/2017 WHEN WAS THE LAST TIME THE PATIENT SAW THEIR PCP? Same as above Does patient have an upcoming appointment? Yes 12/20/21 (THE MEDICATION REQUESTED IS ON THE MED [...] / Plan: [place] / Product Type: MEDICARE [id number] documented in this encounter Plan of Treatment Not on file documented as of this encounter Visit Diagnoses Not on filedocumented in this encounter Care Teams Tack Driller Relationship Specialty Start Date End Date Carisa Armstrong MD PCP - General Internal Medicine 07/30/17 08/24/21 Raciel Escobedo [address] [place] [phone] PCP - General Internal Medicine 08/25/21 06/13/22 Arlen Bray MD [address] [place] [address] PCP - General Internal Medicine 06/14/22 documented as of this encounter
--- OUTSIDE RECORDS SUMMARY | 2024-06-02 16:55 | XMS_ITS | Clinical Summary ---
Author Organization [facility] Address [address] [place] [address] Care Team Providers Care Branch Specialist Name Role Phone Arlen Bray MD Primary Care Provider Unavailabl e Allergies Active Allergy Reactions Severity Noted Date Comments Buspirone Hcl OTHER 12/07/2011 Unable to sleep. Alendronic Acid 06/07/2017 Altered taste Lisinopril Numbness, tingling o r swelling of the lips, tongue or mouth 12/10/2015 Penicillin G Itching/Pruritus 10/28/2013 Medications Medication Sig Dispensed Refills Start Date End Date Status ALBUTEROL SULFATE (PROAIR HFA) 108 (90 BASE) MCG/ACT AERSIndications:HTN (hypertension),Asthm a,Anxiety,GERD (gastroesophageal reflux disease),Screening for breast cancer Inhale 2 Puffs into the lungs 4 times daily as needed for Cough or Wheezing. 5 01/22/2012 Active montelukast (SINGULAIR) 10 MG tablet take 1 tablet by mouth once daily at bedtime 30 Tab 11 02/19/2015 Active polyethylene glycol (GLYCOLAX) powder take 17GM (DISSOLVED IN WATER) by mouth once daily 527 g 3 03/02/2017 Active cetirizine (ZYRTEC) 10 MG tablet Take 1 Tab by mouth daily. 0 01/18/2017 Active Hylan (SYNVISC ONE) 48 MG/6ML Solution Prefilled Syringe Inject 48 mg into the articular space once a week. 2 Syringe 0 04/05/2017 Active Calcium Citrate-Vitamin D (CALCIUM CITRATE + D) 315-250 MG-UNIT Tab Take 2 Tabs by mouth 2 times daily. 120 Tab 5 04/27/2017 Active gemfibrozil (LOPID) 600 MG tablet Take 1 Tab by mouth 2 times daily (before meals) for 360 days. 60 Tab 5 08/14/2017 Active atorvastatin (LIPITOR) 40 MG tablet Take 1 Tab by mouth daily for 360 days. 30 Tab 11 08/14/2017 Active levothyroxine (SYNTHROID, LEVOTHROID) 50 MCG tablet Take 1 Tab by mouth daily. 30 Tab 2 08/17/2017 Active amlodipine (NORVASC) 5 MG tablet Take 1 Tab by mouth daily. 30 Tab 5 08/22/2017 Active DOCQLACE 100 MG capsule take 1 capsule by mouth twice a day 60 Cap 5 08/30/2017 Active tramadol (ULTRAM) 50 MG tablet Take 1 Tab by mouth daily. 28 Tab 0 10/10/2017 Active fluconazole (DIFLUCAN) 100 MG tablet Take 100 mg by mouth daily. 0 Active alprazolam (XANAX) 1 MG tablet Take 1 Tab by mouth at bedtime as needed for Anxiety. 28 Tab 0 03/13/2018 Active omeprazole (PRILOSEC) 20 MG capsule Take 2 Caps by mouth daily. 60 Cap 0 07/14/2018 Active nystatin (MYCOSTATIN) 032424 UNIT/ML suspension SWISH 4 ML IN MOUTH FOR ONE MIN AND SPIT OUT 4 TIMES DAILY 480 mL 4 05/14/2020 Active Active Problems Problem Noted Date Transaminitis 09/17/2017 Elevated alkaline phosphatase level 08/29 GERD (gastroesophageal reflux disease) 0 08/01/2017 Irritable bowel syndrome with constipati on 08/01/2017 Overview: Follows with GI s/p upper endoscopy and colonoscopy nondiagnostic. Abdominal CAT scan in June, normal. OA (osteoarthritis) of knee 03/19/2017 Overview: Right follows with rheumatology Asthma 01/10/2017 Arteriosclerosis of artery of extremity 01/10/2017 Overview: LLE with claudication, f/u with vascular at [facility] Hypertension 06/12/2016 Hypothyroidism 10/17/2013 Hypertriglyceridemia 07/05/2012 Anxiety 01/22/2012 Overview: Chronically treated benzodizepines Used to follow with [facility] Osteoporosis Resolved Problems Problem Noted Date Resolved Date Chronic constipation 08/01/2017 08/01/2017 Irritable bowel syndrome with constipation 11/2308/01/2017 Arterial occlusion, lower extremity 07/19/2016 01/10/2017 Drug-induced constipation 06/12/20162016 Vaccine refused by patient 06/12/201608/01 CKD (chronic kidney disease) 12/10/201507/2017 Positive H. pylori test 06/09/2015 01/11/20 17 KEN positive 10/17/2013 08/01/2017 Anemia 07/05/2012 08/01/2017 Low back pain 01/22/2012 08/01/2017 Allergic rhinitis 12/07/2011 08/01/2017 Family History Medical History Relation Name Comments Arthritis Mother's side Lupus Other Grandson Relation Name Status Comments Brother 1 Alive Brother 2 dementia Daughter Alive depresion Father dementia Mother malignancy Mother's side Sister Alive diabetes, HTN Son 1 Alive Son 2 Alive Son 3 Alive Son 4 Alive Other Social History Tobacco Use Types Packs/Day Years Used Date Smoking Tobacco: Never Smokeless Tobacco: Never Alcohol Use Standard Drinks/Week Comments No 0 (1 standard drink = 0.6 oz pur e alcohol) Sex Assigned at Date Recorded Not on file Last Filed Vital Signs Vital Sign Reading Time Taken Comments Blood Pressure 128/64 11/05/2017 1:29 PM EDT Pulse 80 11/05/2017 1:29 PM EDT Temperature 36.7 ??C (98.1 ??F) 11/05/2017 1:29 PM ED T Respiratory Rate 16 11/05/2017 1:29 PM EDT Oxygen Saturation 96% 10/28/2013 1:52 PM EDT Inhaled Oxygen Concentration - - Weight 51.1 kg (112 lb 11.2 oz) 11/05/2017 1:29 PM EDT Height 152.4 cm (5') 11/05/2017 1:29 PM EDT Body Mass Index 22.01 11/05/2017 1:29 PM EDT Plan of Treatment Health Maintenance Due Date Last Done Comments Covid-19 Vaccine (#1) 06/06/1941 SHINGLES VACCINE (1 of 2) 12/04/1989 MAMMOGRAM 08/08/2016 08/09/2015, 04/11/2014, 07/23/2013, Additional history exists DEPRESSION SCREEN 08/01/2018 08/01/2017, , 06/12/2016, Additional history exists FALL RISK ASSESSMENT 08/01/2018 08/01/2017, 08/01/2017, 06/12/2016, Additional history exists BONE DENSITY SCREENING 04/19/2019 04/19/2017, 2011 CHOLESTEROL SCREENING 08/14/2022 08/14/2017 , 10/19/2015, 04/10/2012 INFLUENZA (#1) 2023 01/10/2017 (Refu sed), 06/12/2016 (Refused) BMI CHECK/ADVISE 04/30/2024 10/06/2015, 08/04/2015 DTAP/TDAP/TD (2 - Td or Tdap) 06/12/2026 06/12/2016 (Refused) PNEUMOCOCCAL VACCINE Addressed 06/12/2016 (Refused) Overridden with the intention of not completing the topic Advance Directives For more information, please contact: [phone] Documents on File Type Date Recorded Patient Icu Nurse Expl anation Health Care Proxy 01/26/2016 9:31 AM PROXY Care Teams Branch Specialist Relationship Specialty Start Date End Date Arlen Bray MD PCP - General Internal Medicine 06/14/22
--- OUTSIDE RECORDS SUMMARY | 2024-06-02 16:55 | XMS_ITS | Encounter Summary ---
Author Organization [facility] Address [address] [place] [address] Care Team Providers Care Silviculturist Name Role Phone Name, Rainer MULLINS Primary Care Provider Unavailabl e Irene Lai DO Primary Care Pro vider Unavailable Migel Pineda MD Primary Care Provider Un available Carisa Armstrong MD Primary Care Provider Unavail able Raciel Escobedo Primary Care Provider [phone] Arlen Bray MD Primary Care Provider Unavailabl e Encounter Details Date Type Department Care Team Description 01/22/2012 Controlled Substance Contract with Plan Medical Records [address] [place] [address] Abstract, Provider Social History Tobacco Use Types [...] on filedocumented in this encounter Care Teams Silviculturist Relationship Specialty Start Date End Date Name, MD Rainer PCP - General Internal Medicine 12/06/11 05/13/15 Irene Lai DO PCP - General Internal Medicine 05/14/15 12/21/15 Migel Pineda MD PCP - General Internal Medicine 12/22/15 8 Carisa Armstrong MD PCP - General Internal Medicine 07/30/17 08/24/21 Raciel Escobedo [address] [place] [id number] PCP - General Internal Medicine 08/25/21 06/13/22 Arlen Bray MD [address] [place] [address] PCP - General Internal Medicine 06/14/22 documented as of this encounter
--- OUTSIDE RECORDS SUMMARY | 2024-06-02 16:55 | XMS_ITS | Encounter Summary ---
Author Organization [facility] Address [address] [place] [address] Care Team Providers Care Dispensing Optician Apprentice Name Role Phone Migel Pineda MD Primary Care Provider Un available Carisa Armstrong MD Primary Care Provider Unavail able Raciel Escobedo Primary Care Provider [phone] Arlen Bray MD Primary Care Provider Unavailabl e Encounter Details Date Type Department Care Team Description 01/31/2017 Smart Energy Specialist Report Medical Records [address] [place] [address] July Garcia MD [address] [facility] [address] [place] [address] Social History Tobacco Use Types Packs/Day Years [...] on filedocumented in this encounter Care Teams Dispensing Optician Apprentice Relationship Specialty Start Date End Date Migel Pineda MD PCP - General Internal Medicine 12/22/15 8 Carisa Armstrong MD PCP - General Internal Medicine 07/30/17 08/24/21 Raciel Escobedo [address] [place], [place] [id number] PCP - General Internal Medicine 08/25/21 06/13/22 Arlen Bray MD [address] [place] [address] PCP - General Internal Medicine 06/14/22 documented as of this encounter
--- OUTSIDE RECORDS SUMMARY | 2024-06-02 16:55 | XMS_ITS | Clinical Summary ---
Author Organization [employer] [facility] Address [address] [facility] 7[address] [place] [address] Care Team Providers Care Repairer And Checker Name Role Phone Unavailable Primary Care Provider Unavailabl e Social History Tobacco Use Types Packs/Day Years Used Date Smoking Tobacco: Never Assessed Comments Unknown Sex and Gender Information Value Date Recorded Sex Assigned at Female 02/27/2022 10:36 AM EDT Legal Sex Female 10:36 AM EDT Gender Identity Female 02/27/2022 10:36 AM EDT Sexual Orientation Don't know 02/27/2022 10 :36 AM EDT Plan of Treatment Health Maintenance Due Date Last Done Comments Depression Screening 1940 Lipid Panel 1939 SDOH Screening 1939 Alcohol/Substance Use Screening 1951 Tobacco Screening 1952 DTaP/Tdap/Td Vaccines (1 - Tdap) 12/04/1958 Pneumococcal Vaccine: 50+ Years (1 of 2 - PCV) 12/04/1958 Zoster Vaccines (1 of 2) 12/04/1989 RSV Patients and Patients Aged 60 years or older (1 - 1-dose 75+ series) 12/04/2014 COVID-19 Vaccine (4 - 2023-2 5 season) 2023 04/14/2021, 07/13/2020, 06/15/2020 Influenza Vaccine (#1) 2023 2, 02/23/2021 HIB Vaccines Aged Out No longer eligi ble based on patient's age to complete this topic HPV Vaccines Aged Out No longer eligi ble based on patient's age to complete this topic Hepatitis A Vaccines Aged Out No long er eligible based on patient's age to complete this topic Hepatitis B Vaccines Aged Out No long er eligible based on patient's age to complete this topic IPV Vaccines Aged Out No longer eligi ble based on patient's age to complete this topic Meningococcal Vaccine Aged Out No katie mario eligible based on patient's age to complete this topic RSV under 20 months Aged Out No longe r eligible based on patient's age to complete this topic Rotavirus Vaccines Aged Out No longer eligible based on patient's age to complete this topic Insurance [facility] STANDARD MEDIC[place] [phone]
--- OUTSIDE RECORDS SUMMARY | 2024-06-02 16:55 | XMS_ITS | Encounter Summary ---
Author Organization [facility] Address [address] [place] [address] Care Team Providers Care Embalmer/Funeral Director Name Role Phone Migel Pineda MD Primary Care Provider Un available Carisa Armstrong MD Primary Care Provider Unavail able Raciel Escobedo Primary Care Provider [phone] Arlen Bray MD Primary Care Provider Unavailabl e Reason for Visit * Reason Onset Date Comments Faxed Order 02/17/2016 Encounter Details Date Type Department Care Team Description 02/17/2016 Telephone Adult [address] [address] Migel Pineda MD Faxed Order Social History Tobacco Use Types Packs/Day Years Used Date Smoking Tobacco: Never Smokeless Tobacco: Never Alcohol Use Standard Drinks/Week Comments No 0 (1 standard drink = 0.6 oz pur e alcohol) Sex Assigned at Date Recorded Not on file documented as of this encounter Miscellaneous Notes * Telephone Encounter - Noreen Olvera - 02/17/2016 9:44 AM EDT Faxed order form compassionate healthcare documented in this encounter Plan of Treatment Not on file documented as of this encounter Visit Diagnoses Not on filedocumented in this encounter Care Teams Embalmer/Funeral Director Relationship Specialty Start Date End Date Migel Pineda MD PCP - General Internal Medicine 12/22/15 8 Carisa Armstrong MD PCP - General Internal Medicine 07/30/17 08/24/21 Raciel Escobedo [address] [place] [address] PCP - General Internal Medicine 08/25/21 06/13/22 Arlen Bray MD [address] [place] [address] PCP - General Internal Medicine 06/14/22 documented as of this encounter
--- OUTSIDE RECORDS SUMMARY | 2024-06-02 16:55 | XMS_ITS | Encounter Summary ---
Author Organization [facility] Address [address] [place] [address] Care Team Providers Care Stockroom Attendant Name Role Phone Migel Pineda MD Primary Care Provider Un available Carisa Armstrong MD Primary Care Provider Unavail able Raciel Escobedo Primary Care Provider [phone] Arlen Bray MD Primary Care Provider Unavailabl e Encounter Details Date Type Department Care Team Description 03/17/2016 [facility] Medical Records [address] [place] [address] Abstract, Provider Social History Tobacco Use Types [...] on filedocumented in this encounter Care Teams Stockroom Attendant Relationship Specialty Start Date End Date Migel Pineda MD PCP - General Internal Medicine 12/22/15 8 Carisa Armstrong MD PCP - General Internal Medicine 07/30/17 08/24/21 Raciel Escobedo [address] [place] [id number] PCP - General Internal Medicine 08/25/21 06/13/22 Arlen Bray MD [address] [place] [id number] PCP - General Internal Medicine 06/14/22 documented as of this encounter
--- OUTSIDE RECORDS SUMMARY | 2024-06-02 16:55 | XMS_ITS | Encounter Summary ---
Author Organization [facility] Address [address] [place] [address] Care Team Providers Care Lining Layer Name Role Phone Rainer Sanchez MD Primary Care Provider Unavailabl e Irene Lai DO Primary Care Pro vider Unavailable Migel Pineda MD Primary Care Provider Un available Carisa Armstrong MD Primary Care Provider Unavail able Raciel Escobedo Primary Care Provider [phone] Arlen Bray MD Primary Care Provider Unavailabl e Reason for Visit * Reason Onset Date Comments Faxed Order 09/02/2014 Encounter Details Date Type Department Care Team Description 09/02/[address] [address] Rainer Sanchez MD Faxed Order Social History Tobacco Use Types Packs/Day Years Used Date Smoking Tobacco: Never Smokeless Tobacco: Never Alcohol Use Standard Drinks/Week Comments No 0 (1 standard drink = 0.6 oz pur e alcohol) Sex Assigned at Date Recorded Not on file documented as of this encounter Miscellaneous Notes * Telephone Encounter - Jacqueline Meredith - 09/02/2014 2:38 PM EDT Plan of cares for Dr Sanchez's signature documented in this encounter Plan of Treatment Not on file documented as of this encounter Visit Diagnoses Not on filedocumented in this encounter Care Teams Lining Layer Relationship Specialty Start Date End Date Rainer Sanchez MD PCP - General Internal Medicine 12/06/11 05/13/15 Irene Lai DO PCP - General Internal Medicine 05/14/15 12/21/15 Migel Pineda MD PCP - General Internal Medicine 12/22/15 8 Carisa Armstrong MD PCP - General Internal Medicine 07/30/17 08/24/21 Raciel Escobedo [address] [place] [phone] PCP - General Internal Medicine 08/25/21 06/13/22 Arlen Bray MD [address] [place] [id number] PCP - General Internal Medicine 06/14/22 documented as of this encounter
--- OUTSIDE RECORDS SUMMARY | 2024-06-02 16:55 | XMS_ITS | Encounter Summary ---
Author Organization [facility] Address [address] [place] [address] Care Team Providers Care Patient Registration Specialist Name Role Phone Migel Pineda MD Primary Care Provider Un available Carisa Armstrong MD Primary Care Provider Unavail able Raciel Escobedo Primary Care Provider [phone] Arlen Bray MD Primary Care Provider Unavailabl e Reason for Visit * Reason Onset Date Comments Faxed Order 02/10/2016 Encounter Details Date Type Department Care Team Description 02/10/2016 Telephone Adult [address] [address] Migel Pineda MD Faxed Order Social History Tobacco Use Types Packs/Day Years Used Date Smoking Tobacco: Never Smokeless Tobacco: Never Alcohol Use Standard Drinks/Week Comments No 0 (1 standard drink = 0.6 oz pur e alcohol) Sex Assigned at Date Recorded Not on file documented as of this encounter Miscellaneous Notes * Telephone Encounter - Yolanda Vega - 02/10/2016 3:06 PM EDT [facility] IS FAXING ORDERS TO FAX BACK TO [phone]. documented in this encounter Plan of Treatment Not on file documented as of this encounter Visit Diagnoses Not on filedocumented in this encounter Care Teams Patient Registration Specialist Relationship Specialty Start Date End Date Migel Pineda MD PCP - General Internal Medicine 12/22/15 8 Carisa Armstrong MD PCP - General Internal Medicine 07/30/17 08/24/21 Raciel Escobedo [address] [place] [address] PCP - General Internal Medicine 08/25/21 06/13/22 Arlen Bray MD [address] [place] [address] PCP - General Internal Medicine 06/14/22 documented as of this encounter
--- OUTSIDE RECORDS SUMMARY | 2024-06-02 16:55 | XMS_ITS | Encounter Summary ---
Author Organization [facility] Address [address] [place] [address] Care Team Providers Care Attendant Child Activity Name Role Phone Carisa Armstrong MD Primary Care Provider Unavail able Raciel Escobedo Primary Care Provider [phone] Arlen Bray MD Primary Care Provider Unavailabl e Reason for Visit * Reason Comments E-prescribe Rx Request Encounter Details Date Type Department Care Team Description 02/16/2020 Refill Gastroenterology [place] [address] [phone] Job Jin PA-C [address] [address] E-prescribe Rx Request Social History Tobacco Use [...] on filedocumented in this encounter Care Teams Attendant Child Activity Relationship Specialty Start Date End Date Carisa Armstrong MD PCP - General Internal Medicine 07/30/17 08/24/21 Raciel Escobedo [address] [place] [id number] PCP - General Internal Medicine 08/25/21 06/13/22 Arlen Bray MD [address] [place] [address] PCP - General Internal Medicine 06/14/22 documented as of this encounter
--- OUTSIDE RECORDS SUMMARY | 2024-06-02 16:55 | XMS_ITS | Encounter Summary ---
Author Organization [facility] Address [address] [place] [address] Care Team Providers Care Draw Bench Operator Name Role Phone Carisa Armstrong MD Primary Care Provider Unavail able Raciel Escobedo Primary Care Provider [phone] Arlen Bray MD Primary Care Provider Unavailabl e Encounter Details Date Type Department Care Team Description 06/14/2018 Transfer Records Medical Records [address] [place] [address] Abstract, Provider Social History Tobacco Use Types [...] on filedocumented in this encounter Care Teams Draw Bench Operator Relationship Specialty Start Date End Date Carisa Armstrong MD PCP - General Internal Medicine 07/30/17 08/24/21 Raciel Escobedo [address] [place] [id number] PCP - General Internal Medicine 08/25/21 06/13/22 Arlen Bray MD [address] [place] [id number] PCP - General Internal Medicine 06/14/22 documented as of this encounter
--- OUTSIDE RECORDS SUMMARY | 2024-06-02 16:55 | XMS_ITS | Encounter Summary ---
Author Organization [facility] Address [address] [place] [address] Care Team Providers Care Senior Materials Scientist Name Role Phone Rainer Sanchez MD Primary Care Provider Unavailabl e Irene Lai DO Primary Care Pro vider Unavailable Migel Pineda MD Primary Care Provider Un available Carisa Armstrong MD Primary Care Provider Unavail able Raciel Escobedo Primary Care Provider [phone] Arlen Bray MD Primary Care Provider Unavailabl e Reason for Visit * Reason Onset Date Comments Form 01/11/2015 home care form Encounter Details Date Type Department Care Team Description 01/11/2015 Telephone Adult [address] [address] Name, MD Rainer Form (home care form) Social History Tobacco Use Types Packs/Day Years Used Date Smoking Tobacco: Never Smokeless Tobacco: Never Alcohol Use Standard Drinks/Week Comments No 0 (1 standard drink = 0.6 oz pur e alcohol) Sex Assigned at Date Recorded Not on file documented as of this encounter Miscellaneous Notes * Telephone Encounter - Alyx Loera M.A. - 01/11/2015 1:14 PM EDT Our copy given to pt. * Telephone Encounter - Jocelynn Elizondo - 01/11/2015 1:07 PM EDT Natasha Casper Patient Dropped off a form For Home care. Patient's Form was Faxed add Was Suppose to have been Picked up. Patient is in the Lobby now and was requesting her Form. documented in this encounter Plan of Treatment Not on file documented as of this encounter Visit Diagnoses Not on filedocumented in this encounter Care Teams Senior Materials Scientist Relationship Specialty Start Date End Date Name, MD Rainer PCP - General Internal Medicine 12/06/11 05/13/15 Irene Lai DO PCP - General Internal Medicine 05/14/15 12/21/15 Migel Pineda MD PCP - General Internal Medicine 12/22/15 8 Carisa Armstrong MD PCP - General Internal Medicine 07/30/17 08/24/21 Raciel Escobedo [address] [place] [address] PCP - General Internal Medicine 08/25/21 06/13/22 Arlen Bray MD [address] [place] [address] PCP - General Internal Medicine 06/14/22 documented as of this encounter
== END 2024-06-02 17:05 | disposition home or self-care (01) ==
PROVIDERS: PCP Internal Medicine; Visit Provider Internal Medicine
DX: E78.00 Pure hypercholesterolemia, unspecified (principal); K21.9 Gastro-esophageal reflux disease without esophagitis; I10 Essential (primary) hypertension; J45.20 Mild intermittent asthma, uncomplicated; E03.9 Hypothyroidism, unspecified; K76.0 Fatty (change of) liver, not elsewhere classified; F41.1 Generalized anxiety disorder; K59.00 Constipation, unspecified; Z23 Encounter for immunization

== ENCOUNTER → 2024-06-02 15:27 | Outpatient (BNVA) | payer MEDICARE, MEDICAID, SELFPAY | PROVIDERS: PCP Internal Medicine; Visit Provider Internal Medicine | DX: Z23 Encounter for immunization (principal); E78.00 Pure hypercholesterolemia, unspecified; K21.9 Gastro-esophageal reflux disease without esophagitis; I10 Essential (primary) hypertension; J45.20 Mild intermittent asthma, uncomplicated; E03.9 Hypothyroidism, unspecified; K76.0 Fatty (change of) liver, not elsewhere classified; F41.1 Generalized anxiety disorder; K59.00 Constipation, unspecified | CPT/HCPCS: 90471; 90677; 96127; 99212 ==

== ENCOUNTER 2024-09-03 11:05 | Outpatient (REF) | payer MEDICARE, MEDICAID, SELFPAY ==
[2024-09-03 11:15] LABS: MANUAL DIFF FLAG NO
[2024-09-03 11:49] LABS: Basophils Absolute Auto 0.1 X10*3/uL (0.0-0.2); Basophils Percent Auto 0.9 % (0-2); Eosinophils Absolute Auto 0.4 X10*3/uL (0.0-0.4); Eosinophils Percent Auto 5.4 % (0-4); Hematocrit 34.9 % (37.0-47.0); Hemoglobin 11.7 g/dl (12.0-16.0); Imm Gran Abs Auto 0.01 X10*3/uL (0.00-0.03); Imm Gran Pct Auto 0.1 % (0.0-0.4); Lymphocytes Absolute Auto 2.9 X10*3/uL (1.2-4.9); Lymphocytes Percent Auto 42.2 % (20-40); Mean Corpuscular HGB Conc 33.5 g/dl (31.0-35.0); Mean Corpuscular Hemoglobin 29.2 pg (27.0-33.0); Mean Platelet Volume 8.9 fL (9.4-12.3); Monocytes Absolute Auto 0.7 X10*3/uL (0.1-1.2); Monocytes Percent Auto 10.2 % (2-11); Neutrophils Absolute Auto 2.8 x10*3/uL (2.0-8.3); Neutrophils Percent Auto 41.2 % (45-73); Platelet Count 292 X10*3/uL (160-400); Red Blood Count 4.01 X10*6/uL (4.20-5.50); Red Cell Distribution Width 13.7 % (11.0-16.0); White Blood Count 6.9 X10*3/uL (4.8-10.8)
--- OUTSIDE RECORDS SUMMARY | 2024-09-03 12:32 | XMS_ITS | Clinical Summary ---
Author Organization [employer] Address [address] [facility] 7[address] [place] [address] Care Team Providers Care Qualitative Executive Researcher Name Role Phone Unavailable Primary Care Provider [...] patient's age to complete this topic [place] [address] [place] [address] STANDARD MEDICARE
--- OUTSIDE RECORDS SUMMARY | 2024-09-03 12:32 | XMS_ITS | Data Portability ---
Author Organization [place] - [facility], Allergy Address [address] [place] [phone] Assessment Encounter Date Assessment Date Assessment LastModified by Organization Details LastModified Time 2023 2023 Recurrent sialolithiasis and infection. refill clinda and culturelle. 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 This started 2-3 weeks ago, is intermittent, and radiates inferiorly down the angle of the left mandible. Otologic exam is benign. Patient with persistent sialoadenitis of the left submandibular gland due to large stone. No overlying skin changes. Surgery was deferred 6 months ago due to stone location. Recommend Clindamycin four times daily for 10 days. Recommend acetaminophen as needed for pain management. Patient is scheduled to follow up with Dr. Fisher in 8 weeks. [email or web address] Not available 08/05/2024 08:07:08 Plan of Treatment Reminders Order Date Submit Date Provider Last Modified By Organization Details Last Modified Time Details Appointments Establish ed 30 2024 10:30A M STACIE Marion MD Not available Not available Not available Lab None recorded. Referral None recorded. Procedures None recorded. Surgeries None recorded. Imaging None recorded. Medication Orders clindamyc in HCl 150 mg capsule 2024 025 [facility], [address] [facility], [place], [place], [id number], 08/07/2024 11:48:56 clindamyc in HCl 300 mg capsule 2023 025 [facility], [address], [place], [id number], 08/04/2024 16:13:44 Culturell e 10 billion cell capsule 2023 024 [facility], [address], [place], [phone], 2023 10:21:33 Patient TargetsNo targets recorded. Patient Instructions Encounter Date Encounter Id Patient Instructions Last Modified By Organization Details Last Modified Time 10/23/2023 [id number] Finish clindamycin as prescribed. Increase oral hydration. Use sour candies more regularly. Perform vbtk-[id number]-[id number] massage several times per day and consider warm compresses. Rationale for all were reviewed and patient and son understand. Patient requested next available routine follow up with Dr. Fisher in case of recurrence, and this has been arranged. [email or web address] Not available 10/23/2023 11:17:16 Reason for Referral None Reported. Results Created Date Observation Date Name Description Value Unit Range Abnormal Flag Note LastModifiedBy Organization Detail LastModifiedTime 11/20/19 24 10/12/2023 CT, neck, w/ contr ast No observ ation record ed. [email or web address] Not Available 2023 15:41:15 12/18/19 24 01/28/2021 imagi ng/di agnos tic resul t No observ ation record ed. [email or web address] Not Available 20:38:50 12/18/19 24 02/01/2021 imagi ng/di agnos tic resul t No observ ation record ed. [email or web address] Not Available 20:38:51 12/18/19 24 02/16/2021 imagi ng/di agnos tic resul t No observ ation record ed. [email or web address] Not Available 20:38:56 12/18/19 24 02/16/2021 imagi ng/di agnos tic resul t No observ ation record ed. [email or web address] Not Available 20:38:57 08/20/20 24 02/28/2021 imagi ng/di agnos tic resul t No observ ation record ed. [email or web address] Not Available 20:39:02 12/18/19 24 04/29/2020 imagi ng/di agnos tic resul t No observ ation record ed. [email or web address] Not Available 20:39:21 Result Notes None recorded. Problems Name Problem SNOMED Code Status Onset Date Resolution Date Notes Provider Name and Address Organization Details Recorded Time Celluliti s of oral soft tissues 1459586 Active 2019 Submandib ular abscess; Note: Date Diagnosed : 0 4:03 PM (K12.2) Not Available [facility] 4 03:00:22 Abscess of oral tissue 03618640 Active 2019 Submandib ular abscess; Note: Date Diagnosed : 0 4:03 PM (K12.2) Not Available [facility] 4 03:00:22 Impacted cerumen in right ear 24339654663 20444 Active 2021 Impacted cerumen, right ear; Note: Date Diagnosed : 07/08/2021 1:48 PM (H61.21) Not Available [facility] 4 03:00:19 Pain of left temporoma ndibular joint 35944702841 069997 Active 2019 Arthralgi a of left temporoma ndibular joint; Note: Date Diagnosed : 04/06/2020 9:44 AM (M26.622) Not Available [facility] 4 03:00:19 Impacted cerumen of bilateral ears 68731056977 62664 Active 2017 Impacted cerumen, bilateral ; Note: Date Diagnosed : 02/28/2018 3:46 PM (H61.23) Not Available [facility] 4 03:00:21 Tinnitus of left ear 65243040476 06 Active 2020 Tinnitus, left ear; Note: Date Diagnosed : 12/24/2020 12:03 PM (H93.12) Not Available [facility] 4 03:00:21 Glossodyn ia 25198562 Active 2017 Glossodyn ia; Note: Date Diagnosed : 01/08/2018 9:56 AM (K14.6) Not Available [facility] 4 03:00:20 Sialolith iasis 41297260 Active 2020 Sialolith iasis; Note: Date Diagnosed : 05/06/2020 11:41 AM (K11.5) Not Available [facility] 4 03:00:22 Impacted cerumen in left ear 03738129435 39162 Active 2017 Impacted cerumen, left ear; Note: Date Diagnosed : 01/08/2018 9:37 AM (H61.22) Not Available [facility] 4 03:00:19 Acute sialoaden itis 389850070 Active 2019 Acute sialoaden itis; Note: Date Diagnosed : 02/03/2020 9:35 AM (K11.21) Not Available [facility] 4 03:00:21 Chronic sialadeni tis 332870555 Active 2020 Chronic sialoaden itis; Note: Date Diagnosed : 05/06/2020 11:41 AM (K11.23) Not Available [facility] 4 03:00:21 Referred otalgia of left ear 12289082882 74298 Active 2024 KATHLEEN SHARPE PA-C [address] [place] [address], [phone] , [facility] 5 16:47:40 Problem Notes None recorded. Procedures Surgical History Date Name Laterality Status Provider Name and Address Organization Details Recorded Time Cerumen removal without microscope bilat completed STACIE FISHER MD [address] [place] [address], [phone], [facility] 03/19/2024 11:28:15 Imaging Results Imaging Date Name Status LastModified by Organiz ation Details LastModified Time 10/12/2023 CT, neck, w/ contrast completed [email or web address] Information not available 11/20/2023 15:41:15 01/28/2021 imaging/diagn ostic result completed Information not available 12/18/2023 20:38:50 02/01/2021 imaging/diagn ostic result completed Information not available 12/18/2023 20:38:51 02/16/2021 imaging/diagn ostic result completed Information not available 12/18/2023 20:38:56 02/16/2021 imaging/diagn ostic result completed Information not available 12/18/2023 20:38:57 02/28/2021 imaging/diagn ostic result completed Information not available 12/18/2023 20:39:02 04/29/2020 imaging/diagn ostic result completed Information not available 12/18/2023 20:39:21 Procedure Notes None recorded. Medical Equipment None Reported. Allergies Allergen ID Allergen Name Allergen Category Reaction Reaction Severity Criticality Documentation Date Start Date Code Code System Note Provider Name and Address Organization Details Recorded Time 175898 Product containin g penicilli n (product) medicatio n other Not available Not available 09/11/2023 11619 8001 SNOMED React ion: unkno wn, unspe cifie d;; Not Available [facility] 4 01:13:51 037434 acetamino phen / oxycodone medicatio n other Not available Not available 09/11/2023 49786 3 RxNorm React ion: unkno wn, unspe cifie d;; Not Available [facility] 4 01:13:52 Medications Name Sig Start Date Stop Date Status Note LastModified by Organization Details LastModified Time medbox status USE DIRECTED 08/04 completed Not Available Not Available Not Available Prescript ion - Prior Authoriza tion Request active Script Copy/Celsa or Auth^Scr ipt Copy/Celsa or Auth_ Not Available Not Available Not Available atorvasta tin 40 mg tablet 07/05 completed Medicati on ID: [id number] D uration Value: 30 Brand Name: atorvast atin Sen d Method: E-Prescr ibed Sub s Allowed: subs OK Medic ationGen ericName : atorvast atin Not Available Not Available Not Available azelastin e 0.05 % eye drops INSTILL 1 DROP IN EACH EYE TWICE DAILY NEEDED active Not Available Not Available No t Available nystatin 100,000 unit/mL oral suspensio n active Medicati on ID: [id number] B rand Name: nystatin Send Method: E-Prescr ibed Sub s Allowed: subs OK Speci al Instruct ion: SWISH 4 ML IN MOUTH FOR ONE MIN AND SPIT OUT 4 TIMES DAILY Me dication GenericN helen: nystatin Not Available Not Available Not Available paroxetin e 10 mg tablet active Medicati on ID: [id number] B rand Name: paroxeti ne HCl Send Method: E-Prescr ibed Sub s Allowed: subs OK Speci al Instruct ion: TAKE 1 TABLET DAILY Me dication GenericN helen: paroxeti ne HCl Not Available Not Available Not Available clindamyc in HCl 300 mg capsule TAKE 1 CAPSULE BY MOUTH FOUR TIMES DAILY 08/04 completed Not Available Not Available Not Available triamcino lone acetonide 0.5 % topical cream APPLY TOPICALL Y TO THE AFFECTED AREA(S) TWICE DAILY FOR 7 DAYS active Not Available Not Available No t Available atorvasta tin 10 mg tablet TAKE 1 TABLET BY MOUTH EVERYDAY AT NOON active Not Available Not Available No t Available Stool Softener 100 mg capsule TAKE 2 CAPSULES BY MOUTH EVERY DAY AT BEDTIME active Not Available Not Available No t Available alprazola m 1 mg tablet TAKE 1 TABLET BY MOUTH TWICE DAILY active Not Available Not Available No t Available Lidocaine Viscous 2 % mucosal solution Apply 15 ml by mouth three times a day as needed for pain 2022 active Medicati on ID: [id number] D uration Value: 30 Brand Name: Lidocain e Viscous Send Method: E-Prescr ibed Sub s Allowed: subs OK Speci al Instruct ion: SWISH AND SPIT. NO FOOD OR BEVERAGE FOR 30 MINUTES AFTER DOSE Med icationG enericNa me: Lidocain e Viscous Not Available Not Available Not Available tizanidin e 4 mg tablet TAKE 1 TABLET BY MOUTH TWICE DAILY NEEDED FOR MUSCLE SPASMS active Not Available Not Available No t Available ketotifen 0.025 % (0.035 %) eye drops 07/08 completed Medicati on ID: [id number] B rand Name: ketotife n fumarate Send Method: E-Prescr ibed Sub s Allowed: subs OK Speci al Instruct ion: PLACE 1 DROP IN EACH EYE TWICE DAILY NEEDED M edicatio nGeneric Name: ketotife n fumarate Not Available Not Available Not Available clindamyc in HCl 150 mg capsule TAKE 1 CAPSULE BY MOUTH EVERY 6 HOURS WITH MEALS FOR 10 DAYS active Not Available Not Available No t Available metronida zole 500 mg tablet TAKE 1 TABLET BY MOUTH EVERY 8 HOURS FOR 10 DAYS active Not Available Not Available No t Available hydroxyzi ne HCl 50 mg tablet TAKE 1 TABLET BY MOUTH TWICE DAILY active Not Available Not Available No t Available amlodipin e 5 mg tablet TAKE 1 TABLET BY MOUTH EVERY EVENING active Not Available Not Available No t Available tramadol 50 mg tablet 07/08 completed Medicati on ID: [id number] B rand Name: tramadol Send Method: E-Prescr ibed Sub s Allowed: subs OK Speci al Instruct ion: TAKE 1 TABLET EVERY DAY NEEDED FOR PAIN Med icationG enericNa me: tramadol Not Available Not Available Not Available levothyro xine 75 mcg tablet TAKE 1 TABLET BY MOUTH EVERY MORNING active Not Available Not Available No t Available alprazola m 0.25 mg tablet 02/02 completed Medicati on ID: [id number] D uration Value: 25 Brand Name: alprazol am Send Method: E-Prescr ibed Sub s Allowed: subs OK Medic ationGen ericName : alprazol am Not Available Not Available Not Available Proctozon e-HC 2.5 % topical cream perineal applicato r active Medicati on ID: [id number] B rand Name: Proctozo ne-HC Se nd Method: E-Prescr ibed Sub s Allowed: subs OK Speci al Instruct ion: APPLY RECTALLY 2 TO 4 TIMES DAILY NEEDED FOR HEMORRHO IDS Medi cationGe nericNam e: Proctozo ne-HC Not Available Not Available Not Available amlodipin e 10 mg tablet TAKE 1 TABLET BY MOUTH EVERY EVENING active Not Available Not Available No t Available levothyro xine 50 mcg tablet TAKE 1 TABLET BY MOUTH EVERY MORNING active Not Available Not Available No t Available cephalexi n 500 mg capsule TAKE 1 CAPSULE BY MOUTH FOUR TIMES A DAY FOR 10 DAYS 08/04 completed Not Available Not Available Not Available paroxetin e 20 mg tablet TAKE 1 TABLET BY MOUTH AT BEDTIME active Not Available Not Available No t Available pantopraz ole 40 mg tablet,de layed release TAKE 1 TABLET BY MOUTH TWICE DAILY AT NOON AND BEDTIME active Not Available Not Available No t Available tacrolimu s 0.1 % topical ointment active Medicati on ID: [id number] B rand Name: tacrolim us Send Method: E-Prescr ibed Sub s Allowed: subs OK Medic ationGen ericName : tacrolim us Not Available Not Available Not Available olopatadi ne 0.1 % eye drops INSTILL 1 DROP IN EACH EYE TWICE DAILY (AT LEAST 6-8 HOURS APART) active Not Available Not Available No t Available triamcino lone acetonide 55 mcg nasal spray aerosol USE 2 SPRAYS IN EACH NOSTRIL EVERY DAY active Not Available Not Available No t Available Ear Drops (carbamid e peroxide) 6.5 % PLACE 5 DROPS INTO THE AFFECTED EAR(S) EVERY DAY FOR 4 DAYS active Not Available Not Available No t Available Gas Relief Extra Strength 125 mg capsule TAKE 1 CAPSULE BY MOUTH 2 TO 4 TIMES PER DAY NEEDED FOR GAS active Not Available Not Available No t Available omeprazol e 20 mg capsule,d elayed release 07/08 completed Medicati on ID: [id number] D uration Value: 30 Brand Name: omeprazo le Send Method: E-Prescr ibed Sub s Allowed: subs OK Medic ationGen ericName : omeprazo le Not Available Not Available Not Available montel[address] st 10 mg tablet 07/08 completed Medicati on ID: [id number] B rand Name: monteluk ast Send Method: E-Prescr ibed Sub s Allowed: subs OK Medic ationGen ericName : monteluk ast Not Available Not Available Not Available hydroxyzi ne HCl 25 mg tablet TAKE 1 TABLET BY MOUTH UP TO FOUR TIMES DAILY NEEDED FOR ITCHING active Not Available Not Available No t Available Culturell e 10 billion cell capsule Take 1 capsule 4 times a day by oral route for 10 days. 2023 active Not Available Not Available Not Avai lable mometason e 0.1 % topical ointment active Medicati on ID: [id number] B rand Name: mometaso ne Send Method: E-Prescr ibed Sub s Allowed: subs OK Medic ationGen ericName : mometaso ne Not Available Not Available Not Available fluticaso ne propionat e 50 mcg/actua tion nasal spray,marian pension USE 2 SPRAYS IN EACH NOSTRIL EVERY DAY active Not Available Not Available No t Available Ventolin HFA 90 mcg/actua tion aerosol inhaler INHALE 2 PUFFS BY MOUTH EVERY 4 HOURS NEEDED active Not Available Not Available No t Available Senna-S 8.6 mg-50 mg tablet TAKE 2 TABLETS BY MOUTH TWICE DAILY active Not Available Not Available No t Available diclofena c 1 % topical gel active Medicati on ID: [id number] B rand Name: diclofen ac sodium S end Method: E-Prescr ibed Sub s Allowed: subs OK Medic ationGen ericName : diclofen ac sodium Not Available Not Available Not Available Culturell e [facility] 10 billion cell-200 mg sprinkle capsule TAKE 1 TABLET BY MOUTH FOUR TIMES DAILY active Not Available Not Available No t Available ClearLax 17 gram/dose oral powder TAKE 17 GM MIXED IN 8 OUNCES OF WATER, COFFEE OR TEA ONCE DAILY active Not Available Not Available No t Available Breo Ellipta 100 mcg-25 mcg/dose powder for inhalatio n INHALE 1 PUFF EVERY DAY AT THE SAME TIME. RINSE MOUTH AFTER USING. active Not Available Not Available No t Available Dupixent 300 mg/2 mL subcutane ous pen injector active Not Available Not Available Not Available Vitals Date Recorded Body height Body mass index (BMI) Body weight Provider Name and Address Organization Details Last Updated DateTime 08/04/2024 149.86 cm 21 kg/m2 27771.61 g Maritza Shah [place] - [facility] 08/04/2024 12:54:37 Date Recorded Body height Provider Name an d Address Organization Details Last Updated DateTime 10/23/2023 149.86 cm Nirmala Casey [place] - [facility] 10/23/2023 09:51:59 Date Recorded Body height Body mass index (BMI) Body weight Provider Name and Address Organization Details Last Updated DateTime 2023 149.86 cm 20.6 kg/m2 88283.42 g Indy Ramos [place] - [facility] 2023 10:03:05 Date Recorded Body height Body mass index (BMI) Body weight Provider Name and Address Organization Details Last Updated DateTime 03/19/2024 149.86 cm 20.2 kg/m2 81986.24 g Jose Stout [place] - [facility] 03/19/2024 10:44:15 Social History None recorded. Functional Status None recorded. Mental Status None recorded. Family History Nothing Reported. Medical History No medical history recorded. Gynecological HistoryNo gynecological history recorded. Obstetrics History GPAL:G 0 P 0 0 0 0 Past Encounters Encounter ID Performer Location Encounter Start Date Encounter Closed Date Diagnosis/Indication Diagnosis SNOMED-CT Code Diagnosis ICD10 Code Diagnosis Note [id number] PIPPA ALLEN MD [facility] [address] [address] 10/17/2023 10:12:45 10/17/2023 11:26:00 Acute sialoadenitis 697572810 K11.21 Chronic sialadenitis 235 391724 K11.23 Sialolithiasis 08718442 K11.5 [id number] MERT BOWMAN PA-C [facility] [address] [place] [address] 10/23/2023 09:49:08 10/23/2023 10:39:54 Chronic sialadenitis 007283995 K11.23 [id number] PIPPA ALLEN MD [facility] [address] [address] 2023 09:54:49 2023 11:02:46 Chronic sialadenitis 780007544 K11.23 Sialolithiasis 33795765 K11.5 [id number] STACIE FISHER MD [facility] [address] [address] 12/17/2023 10:04:54 12/17/2023 11:29:24 Chronic sialadenitis 710558058 K11.23 She has chronic left sialadenit is of the left submandibu lar gland due to a large stone. On exam today there is no infection. I could express clear saliva. She would be at high risk of fistula with gland removal given the size and location of a stone. We agreed to defer surgery. She will call if it worsens. No need for abx today. Discussed milking gland, hydration, and sialogogue s. F/u 3 months. [id number] STACIE FISHER MD [facility] [address] [address] 03/19/2024 10:33:51 03/19/2024 10:56:36 Chronic sialadenitis 355643026 K11.23 She has chronic left sialadenit is of the left submandibu lar gland due to a large stone. On exam today there is no infection. I could express clear saliva. She would be at high risk of fistula with gland removal given the size and location of a stone. We agreed to defer surgery. She will call if it worsens. No need for abx today. Discussed milking gland, hydration, and sialogogue s. F/u 6 months. Impacted c erumen of bilateral ears 9137002376 246221 H61.23 Recurrent Cerumen Impactions : Ears were meticulous ly cleaned bilaterall y today with a curette and suction. The patient tolerated this well and will follow up for repeat debridemen t per routine. [id number] KATHLEEN SHARPE PA-C [facility] [address] [address] 08/04/2024 12:47:28 08/04/2024 13:34:22 Chronic sialadenitis 329009601 K11.23 She has chronic left sialadenit is of the left submandibu lar gland due to a large stone. On exam today there is no infection. I could express clear saliva. She would be at high risk of fistula with gland removal given the size and location of a stone. We agreed to defer surgery. She will call if it worsens. No need for abx today. Discussed milking gland, hydration, and sialogogue s. F/u 6 months. Referred o talgia of left ear 2080067656 101811 H92.02 Health Concerns Section Related Observation LastModified by Organization Corky ls LastModified Time None Recorded Concern Status LastModified by Organization Details LastModified Time None Recorded Advance Directives Directive None Recorded Payers Insurance Date Sequence Insurance Name Policy Number Policy Mcqueen Covered Member ID Mcqueen Member ID Guarantor Name 08/04/2024 3 [place] [employer] Cammie Stroud [id number] Cammie Stroud 08/04/2024 2 [place] [facility] Cammie Stroud [id number] Cammie Stroud 08/04/2024 1 [place] [facility] Cammie Stroud [id number] Cammie Stroud Notes Date Note Type Note Provider Name and Address Organization Details Recorded Time 10/23/2023 text/html 82 year old jenny brock presents with son for evaluation of chronic sialoadenitis. Previously evaluated by Dr. Mccall 10/16 and prescribed clindamycin, which she reports she tolerated well. Feeling better since the medications. Feels like she is about 65% percent better. Now able to open the mouth all the way. Able to eat and drink. She is using sour candies sometimes, not regularly. Drinks about 2 bottles of water per day and some more during the night. She is performing massage. No longer tasting pus in the mouth. STACIE FISHER MD [address] [place] [address], [phone], [facility] - [facility] 10/23/2023 11:36:40 2023 text/html Was improved wit h abx but sx have returned. Hx of salivary gland stone and recurrent infection PIPPA MCCALL MD [address] [place] [address], [phone], [facility] - [facility] 2023 10:13:58 12/17/2023 text/html Hx of recurrent sialadenititis. Most recently of the left submandibular gland. She has been on several rounds of abx. She had a CT neck with contrast 10/21 which showed acute sialadenitis of the left submandibular gland with several associated stones. She reports for the last two months the gland has been painful and she has had swelling of her left submandibular area which has improved intermittently with abx. STACIE FISHER MD [address] [place] [address],[address], [phone], [facility] - [facility] 12/17/2023 11:28:10 03/19/2024 text/html Hx of recurrent sialadenititis. Most recently of the left submandibular gland. She has been on several rounds of abx. She had a CT neck with contrast 10/21 which showed acute sialadenitis of the left submandibular gland with several associated stones. She reports since the last visit she has intermittent swelling of her left submandibular gland but it has subsided each time. She reports her ears feel blocked. STACIE FISHER MD [address] [place] [address],[address], [phone], 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 This started 2-3 weeks ago and is intermittent. Pain radiated down left jaw. She has associated left ear dryness and itchiness. Denies ear drainage or hearing changes. No recent antibiotic. IJEOMA RIOS MD [address] [place] [address],[address], [phone], [facility] 08/05/2024 08:07:11 OBGyn Episode No OBEpisode recorded.
[2024-09-03 12:36] LABS: Alanine Aminotransferase 31 U/L (0-31); Albumin Level 3.9 g/dL (3.5-5.0); Alkaline Phosphatase 114 U/L (39-117); Anion Gap 10 (12-20); Aspartate Amino Transferase 64 U/L (5-31); Bilirubin Total 0.5 mg/dL (0.0-1.0); Blood Urea Nitrogen 20 mg/dL (9-16); Calcium 9.6 mg/dL (8.4-10.2); Carbon Dioxide 27 mmol/L (22-29); Chloride 103 mmol/L (96-108); Cholesterol 135 mg/dL (<200); Estimated Glomerular Filt Rate > 60; Glucose Random 104 mg/dL (60-115); HDL Cholesterol 30 mg/dL (>40); LDL Cholesterol Calculated 83 mg/dL (<100); Potassium 3.9 mmol/L (3.3-5.1); Sodium 136 mmol/L (135-145); Total Protein 9.2 g/dL (6.5-8.0); Triglycerides 110 mg/dL (<150)
[2024-09-03 12:56] LABS: Free T4 (Free Thyroxine) 1.14 ng/dL (0.71-1.85); Thyroid Stimulating Hormone 0.14 uIU/mL (0.32-4.0); Vitamin D 25-OH Total 69.7 ng/mL (>30)
[2024-09-03 13:00] LABS: Folate 16.6 ng/mL (> or = 4.0); Vitamin B12 990 pg/mL (200-900)
== END 2024-09-03 11:06 | disposition home or self-care (01) ==
LOC: HO.LAB 11:05
PROVIDERS: PCP Internal Medicine; Visit Provider Internal Medicine
DX: E78.00 Pure hypercholesterolemia, unspecified (principal); E03.9 Hypothyroidism, unspecified
CPT/HCPCS: 36415; 80053; 80061; 82306; 82607; 82746; 84439; 84443; 85025

== ENCOUNTER 2024-09-04 10:40 | Outpatient (AMB) | payer MEDICARE, MEDICAID, SELFPAY ==
[2024-09-04 10:42] VITALS: BP 130/72; PULSE 68; O2SAT 95; BMI 21.1
--- NOTE | 2024-09-04 10:42 | A.OFFPC_ITS ---
Vital Signs 09/04/24 10:42 Height 4 ft 10 in Weight 101 lb BMI 21.1 BP 130/72 Blood Pressure Location Lt brachial Position Sitting Pulse 68 Pulse Source Pulse Oximeter Pulse Oximetry (%) 95 Oxygen Delivery Method Room Air Intake Visit Reasons: hypothyroid, RAMONA Allergies penicillin G [Penicillin G] Allergy (Mild, Verified 09/04/24 10:42) VOMITING penicillin V Allergy (Unknown, Verified 09/04/24 10:42) hives Tobacco use date assessed: 06/02/24 Fall risk assessment: No Falls in past year Last assessed Fall Risk: 09/04/24 Dental Screening Dental Screen Date: 06/02/24 HPI hypothyroid, RAMONA HPI Location asthma as needed 2 a week [facility] Medical History Asthma Bilateral femoral artery stenosis Colonoscopy refused GERD (gastroesophageal reflux disease) Hypercholesterolemia Hypertension Hypothyroid Knee osteoarthritis Surgical History History of surgery Family History Family/Other Medical history unknown Social History Housing: Apartment Alcohol intake: never Patient Tobacco Use Status: Never used Tobacco Tobacco use type: Cigarette e-Cigarette/Vaping Use: Never Used Second Hand Smoke Exposure: No service: No Current occupational status: disabled Current occupational exposures/hazards: No Cognitive needs: No Hearing needs: No Vision needs: Yes Questionnaire PHQ-9 Over the last 2 weeks, how often have you been bothered by any of the following problems? 1. Little interest or pleasure in doing things: not at all 2. Feeling down, depressed, or hopeless: not at all 3. Trouble falling or staying asleep, or sleeping too much: not at all 4. Feeling tired or having little energy: not at all 5. Poor appetite or overeating: not at all 6. Feeling bad about yourself - or that you are a failure or have let yourself or your family down: not at all 7. Trouble concentrating on things, such as reading the newspaper or watching television: not at all 8. Moving or speaking so slowly that other people could have noticed. Or the opposite - being so fidgety or restless that you have been moving around a lot more than usual: not at all 9. Thoughts that you would be better off or of hurting yourself in some way: not at all Total score: 0 Depression Screening Interpretation: Negative Depression Screening Done: Yes 30275 - PHQ-9 Billing: Yes Source: Developed by Drs. Jose Anderson, Carrie Millard, Santi Frazier and colleagues, with an educational frank from [employer]. Thrive Questionnaire Date Thrive assessed: 06/02/24 I am a: Patient What is your living situation today?: I have a steady place to live Within the past 12 months, did the food you bought not last and you didn't have the money to get more?: Never true Within the past 12 months, did you worry whether your food would run out before you got money to buy more?: Never true Do you have trouble paying for medicines?: No Do you have trouble getting transportation to medical appointments?: No Do you have trouble paying your heating and electricity bill?: No Do you have trouble taking care of your child, family member or friend?: No Do you have trouble with day-to-day activities such as bathing, preparing meals, shopping, managing finances, etc.?: No Are you currently unemployed and looking for a job?: No Are you interested in more education?: No Please select the resources that you would like help with: None Currently or been in a relationship where the following occur: No concerns reported THRIVE Score: 0 AUDIT C Alcohol Use Questionnaire (AUDIT-C) 1. How often do you have a drink containing alcohol?: Never Total Score: 0 RAMONA-7 AMB Questionnaire RAMONA-7 Date RAMONA - 7 assessed: 06/02/24 Feeling nervous, anxious, or on edge: 0 = Not at all Not being able to stop or control worryin = Not at all Worrying too much about different things: 0 = Not at all Trouble relaxin = Not at all Being so restless that it is hard to sit still: 0 = Not at all Becoming easily annoyed or irritable: 0 = Not at all Feeling afraid as if something awful might happen: 0 = Not at all Total RAMONA-7 score (0-4 normal; 5-9 mild; 10-14 moderate; 15-21 severe): 0 Source: Developed by Drs. Jose Anderson, Carrie Millard, Santi parks nd colleagues, with an educational frank from [employer]. Physical exam (Primary Care) Vital Signs: Last Vital Signs Pulse 68 09/04/24 10:42 BP 130/72 09/04/24 10:42 Pulse Ox 95 09/04/24 10:42 Oxygen Delivery Method Room Air 09/04/24 10:42 BMI result Body Mass Index 21.1 Tobacco/Smoking Status: Tobacco use Status Tobacco use date assessed 06/02/24 09/04/24 10:43 Patient Tobacco Use Status Never used Tobacco 09/04/24 10:43 Tobacco use type Cigarette 09/04/24 10:43 e-Cigarette/Vaping Use Never Used 09/04/24 10:43 PHQ-9: PHQ-9 Score PHQ-9: Total score 0 09/04/24 11:20 Depression Screening Interpretation: Negative Thrive Assessment: Date of Thrive Assessment Date Thrive assessed 06/02/24 09/04/24 10:43 Currently or been in a relationship where the following occur: No concerns reported Const General: alert; No acute distress Eyes Conjunctivae: conjunctivae normal Resp Auscultation: clear to auscultation bilaterally Cardio Rate: regular rate Rhythm: regular rhythm GI Inspection: Yes normal to inspection Extrem General: Yes normal to inspection and No edema Coding Level of Care Code Est Pt Level 4 (17789) Complex EM visit Add On G2211 Diagnoses Essential hypertension I10 Hypertension type: essential hypertension Hypercholesterolemia E78.00 Mild intermittent asthma without complication J45.20 Asthma complication type: uncomplicated Asthma persistence: intermittent Asthma severity: mild Gastroesophageal reflux disease without esophagitis K21.9 Esophagitis presence: without esophagitis Acquired hypothyroidism E03.9 Hypothyroidism type: acquired Fatty liver K76.0 Generalized anxiety disorder F41.1 Additional Codes PHQ-9 - 09600 - PHQ-9 Billing: Yes ([id number]) Assessment & Plan Assessment & Plan (1) Hypertension: Code(s): I10 - Essential (primary) hypertension Category: Social Hx Qualifiers: Hypertension type: essential hypertension Qualified Code(s): I10 - Essential (primary) hypertension Plan: Continue with blood pressure medication. Decrease salt intake and exercise on amlodipine 10 mg once a day (2) Hypercholesterolemia: Code(s): E78.00 - Pure hypercholesterolemia, unspecified Category: Medical Plan: Avoid fried foods, chicken skin, eggs, butter margarine, pastries and meat. Be it pork or beef they have a lot of cholesterol LDL cholesterol of less than 130 and triglyceride of less than 150 on atorvastatin 10 mg once a day (3) Asthma: Code(s): J45.909 - Unspecified asthma, uncomplicated Category: Medical Qualifiers: Asthma complication type: uncomplicated Asthma persistence: intermittent Asthma severity: mild Qualified Code(s): J45.20 - Mild intermittent asthma, uncomplicated Plan: On albuterol inhaler as needed patient has been placed on Dupixent (4) GERD (gastroesophageal reflux disease): Code(s): K21.9 - Gastro-esophageal reflux disease without esophagitis Category: Medical Qualifiers: Esophagitis presence: without esophagitis Qualified Code(s): K21.9 - Gastro-esophageal reflux disease without esophagitis Plan: Avoid the foods that causes that usually spicy foods, tomato products, juices, coffee, soda and foods that your sensitive to. After eating do not lie down, allow 3-4 hours before in lie down. And keep the head of bed above 30 degrees to avoid the acid from going up. (5) Hypothyroid: Code(s): E03.9 - Hypothyroidism, unspecified Category: Medical Qualifiers: Hypothyroidism type: acquired Qualified Code(s): E03.9 - Hypothyroidism, unspecified Plan: Continue with thyroid medication but did recommend patient is to retest (6) Fatty liver: Code(s): K76.0 - Fatty (change of) liver, not elsewhere classified Category: Medical Plan: Low-fat diet and exercise (7) Generalized anxiety disorder: Comment: Patient follows up with [facility] Counseling Code(s): F41.1 - Generalized anxiety disorder Category: Medical Plan: Continue with counseling and therapy Plan History of Present Illness The patient is an 83-year-old female presenting with a request for follow-up management of her chronic conditions. She has a history of hypercholesterolemia, hypertension, asthma, GERD, hypothyroidism, anxiety disorder, and peripheral vascular disease. The patient was last seen in May 2024. During the previous visits, the patient declined a colonoscopy but is due for a mammogram. Laboratory results from a recent blood workup revealed chronic anemia, with hemoglobin levels of 11.7 and hematocrit of 34.9 for the past four years. Electrolytes and renal function tests were within normal limits. However, blood sugar was mildly elevated at 104 mg/dL, and liver function tests indicated elevated AST at 64 U/L, consistent with a known history of fatty liver disease. LDL cholesterol was well-controlled at 83 mg/dL. Thyroid-stimulating hormone was low at 0.14 mIU/L; the TSH has fluctuated significantly over the past year, suggesting an inconsistent response to current thyroid medication. The patient's current medication regimen includes amlodipine 10 mg daily for blood pressure management and atorvastatin 10 mg daily for dyslipidemia. For asthma, the patient uses an albuterol inhaler as needed and has been receiving Dupixent injections. She also continues therapeutic measures for GERD and hypothyroidism. Behavioral symptoms characteristic of anxiety disorder are addressed with paroxetine and alprazolam, among other medications, supported by ongoing counseling and therapy. Health Maintenance - Patient declined colonoscopy; mammogram is due. - Blood pressure management with amlodipine. - Cholesterol management plan with atorvastatin, LDL <130 mg/dL, triglycerides <150 mg/dL. - Continued assessment of thyroid function with ongoing thyroid medication. - Dietary recommendations include a low-fat diet and regular exercise. - Encourage adherence to counseling and therapy. Social History - Denies alcohol use. - Poor nutritional intake; reports not feeling hungry and needing to improve d ietary habits. - Limited physical activity; patient reports being active mentally but physically non-sedentary. Review of Systems - Denies frequent use of albuterol for asthma, uses only as needed. - Reports chronic fatigue, likely related to anemia. - Denies current skin rash. - Denies significant gastrointestinal symptoms beyond managed GERD. Physical Exam - Pulmonary- Mild wheeze noted. - Cardiovascular- Blood pressure management discussed. Results - Labs: Hemoglobin 11.7 g/dL, Hematocrit 34.9%, Blood sugar 104 mg/dL, AST 64 U/L, LDL cholesterol 83 mg/dL, TSH 0.14 mIU/L. Plan Hypertension and hypercholesterolemia management will continue with amlodipine and atorvastatin, respectively. Dupixent provides benefit for asthma, though the patient requires encouragement to comply with the injection schedule, while albuterol remains accessible for acute symptoms. GERD management is stable, and the patient's anemia will be monitored with dietary guidance. Follow-up on thyroid function in three months is indicated due to variability in TSH levels. For mental health, I will adjust anxiolytic medications if anxiety symptoms remain inadequately controlled. Routine preventative screenings like the mammogram must be addressed soon. Behavioral counseling remains a priority, with a focus on diet and lifestyle more broadly. Patient was informed and verbally consented to the use of an ambient scribe for clinic note documentation during this visit. Discussion Notes I discussed at length with the patient the importance of managing her chronic conditions effectively to minimize health risks, emphasizing medication adherence and regular follow-ups as integral to this process. We considered the benefits and drawbacks of both her asthma management with Dupixent and routine medications for cholesterol and hypertension. I reiterated the need for ongoing thyroid level monitoring given recent fluctuations and stressed the importance of regular anemia checks, recommending diet changes and follow-up for screenings like mammography. I elaborated on medication management for anxiety and advised using anxiety medication cautiously, staying vigilant about potential side effects. Patient Instructions - Take all medications as prescribed (e.g., amlodipine for blood pressure, atorvastatin for cholesterol, medications for thyroid and anxiety). - Use albuterol inhaler as needed for asthma symptoms. - Follow a low-fat diet and remain active within limits of personal health. - Complete the recommended mammogram screening soon. - Monitor symptoms, especially related to asthma and thyroid function. - Keep follow-up appointments and schedule thyroid function tests in three months. - Participate actively in counseling and therapy sessions. - Report any adverse symptoms or medication side effects promptly. - Maintain a list of current medications for review. Medications: Refilled alprazolam 1 mg PO BID 45 tabs 2RF 30 days F41.9 - Anxiety disorder, unspecified polyethylene glycol 3350 17 grams PO DAILY 510 grams 11RF K59.00 - Constipatio n, unspecified Discontinued acetaminophen (Tylenol Extra Strength) Discontinued Reason: Duplicate 500 mg PO Q6H PRN 14 tabs 0RF fever or pain diclofenac sodium 1% (Voltaren Arthritis Pain) apply to single elbow, wrist or hand; for hand includes palm/fingers/back of hand Discontinued Reason: Duplicate 4 grams topical QID 30 days 3 grams 4RF M17.10 - Unilateral primary osteoarthritis, unspecified knee promethazine Discontinued Reason: Doctor's Order 25 mg PO Q4-6H PRN 30 tabs 0RF nausea and vomiting I10 - Essential (primary) hypertension tizanidine Discontinued Reason: Ancillary Entered New Order 4 mg PO BID PRN 30 tabs 0RF muscle spasticity triamcinolone acetonide 0.5% Discontinued Reason: Ancillary Entered New Order 1 appl topical BID 7 days 15 grams 0RF E78.00 - Pure hypercholesterolemia, unspecified carbamide peroxide 6.5% (Debrox) Discontinued Reason: Doctor's Order 5 drps otic (ears) DAILY 4 days 15 mL 0RF H61.23 - Impacted cerumen, bilateral olopatadine 0.1% separate doses by at least 6-8 hours Discontinued Reason: Duplicate 1 drp ophthalmic (eye) BID 5 mL 1RF H10.10 - Acute atopic conjunctivitis, unspecified eye polyethylene glycol 3350 Discontinued Reason: Doctor's Order 17 grams PO DAILY 510 grams 0RF simethicone Discontinued Reason: Change Referral Type 125 mg PO BID-QID PRN 60 caps 0RF abdominal distention R14.0 - Abdominal distension (gaseous) fluticasone propionate 50 mcg/actuation (Flonase Allergy Relief) administer into each nostril Discontinued Reason: Change Referral Type 2 sprays intranasal DAILY 16 grams 8RF sennosides-docusate sodium 8.6-50 mg (Senna Plus) Discontinued Reason: Patient Completed Course 2 tab-caps (2 x 8.6-50 mg) PO BID 60 caps 3RF K59.00 - Constipation, unspecified
--- OUTSIDE RECORDS SUMMARY | 2024-09-04 12:05 | XMS_ITS | Clinical Summary ---
Author Organization [employer] Address [address] [place] [address] Care Team Providers Care Junior Linux Systems Administrator Name Role Phone Unavailable Primary Care Provider [...] patient's age to complete this topic [place] [address] [address] ST[employer] MEDICARE
== END 2024-09-04 11:37 | disposition home or self-care (01) ==
LOC: HO.HMCH 10:41
PROVIDERS: PCP Internal Medicine; Visit Provider Internal Medicine
DX: I10 Essential (primary) hypertension (principal); E78.00 Pure hypercholesterolemia, unspecified; J45.20 Mild intermittent asthma, uncomplicated; K21.9 Gastro-esophageal reflux disease without esophagitis; E03.9 Hypothyroidism, unspecified; K76.0 Fatty (change of) liver, not elsewhere classified; F41.1 Generalized anxiety disorder

== ENCOUNTER → 2024-09-04 10:40 | Outpatient (BNVA) | payer MEDICARE, MEDICAID, SELFPAY | PROVIDERS: PCP Internal Medicine; Visit Provider Internal Medicine | DX: I10 Essential (primary) hypertension (principal); E78.00 Pure hypercholesterolemia, unspecified; J45.20 Mild intermittent asthma, uncomplicated; K21.9 Gastro-esophageal reflux disease without esophagitis; E03.9 Hypothyroidism, unspecified; K76.0 Fatty (change of) liver, not elsewhere classified; F41.1 Generalized anxiety disorder | CPT/HCPCS: 96127; 99212 ==

== ENCOUNTER 2025-01-15 10:34 | Outpatient (AMB) | payer MEDICARE, MEDICAID, SELFPAY ==
[2025-01-15 10:45] VITALS: BP 130/62; PULSE 74; O2SAT 98; BMI 21.5
--- NOTE | 2025-01-15 10:45 | MHC.PC.OV ---
Vital Signs 01/15/25 10:45 Height 4 ft 10 in Weight 103 lb BMI 21.5 BP 130/62 Blood Pressure Location Lt brachial Position Sitting Pulse 74 Pulse Source Pulse Oximeter Pulse Oximetry (%) 98 Oxygen Delivery Method Room Air Intake Visit Reasons: RAMONA Allergies penicillin G (Penicillin G) Allergy (Mild, Verified 01/15/25 10:45) VOMITING penicillin V Allergy (Unknown, Verified 01/15/25 10:45) hives Medication List - Last Reconciled 01/15/25 by Arlen Bray MD albuterol sulfate 2.5 mg inhalation Q4-6H PRN albuterol sulfate 90 mcg/actuation (Ventolin HFA) 2 puffs inhalation Q4-6H PRN alprazolam 1 mg PO BID 30 days amlodipine 10 mg PO DAILY 90 days atorvastatin 10 mg PO DAILY blood pressure monitor (Blood Pressure Kit) As directed budesonide-formoterol 160-4.5 mcg/actuation (Symbicort) 2 puffs inhalation BID [CANE As directed] dupilumab (Dupixent) 200 mg (1.34 mL) subcut Q2W food supplemt, lactose-reduced (Ensure oral liquid) 1 ea PO .QD levothyroxine 75 mcg PO QAM 90 days paroxetine HCl 20 mg PO DAILY 90 days polyethylene glycol 3350 17 grams PO DAILY [SHOWER CHAIR WITH BACK As directed] triamcinolone acetonide 0.5% 1 appl topical BID Tobacco use date assessed: 06/02/24 Fall risk assessment: No Falls in past year Last assessed Fall Risk: 01/15/25 Dental Screening Dental Screen Date: 06/02/24 [facility] Medical History Asthma Bilateral femoral artery stenosis Colonoscopy refused GERD (gastroesophageal reflux disease) Hypercholesterolemia Hypertension Hypothyroid Knee osteoarthritis Surgical History History of surgery Family History Family/Other Medical history unknown Social History Housing: Apartment Alcohol intake: never Patient Tobacco Use Status: Never used Tobacco Tobacco use type: Cigarette e-Cigarette/Vaping Use: Never Used Second Hand Smoke Exposure: No service: No Current occupational status: disabled Current occupational exposures/hazards: No Cognitive needs: No Hearing needs: No Vision needs: Yes Questionnaire Thrive Questionnaire Date Thrive assessed: 09/04/24 I am a: Patient What is your living situation today?: I have a steady place to live Within the past 12 months, did the food you bought not last and you didn't have the money to get more?: Never true Within the past 12 months, did you worry whether your food would run out before you got money to buy more?: Never true Do you have trouble paying for medicines?: No Do you have trouble getting transportation to medical appointments?: No Do you have trouble paying your heating and electricity bill?: No Do you have trouble taking care of your child, family member or friend?: No Do you have trouble with day-to-day activities such as bathing, preparing meals, shopping, managing finances, etc.?: No Are you currently unemployed and looking for a job?: No Are you interested in more education?: No Please select the resources that you would like help with: None Currently or been in a relationship where the following occur: No concerns reported THRIVE Score: 0 RAMONA-7 AMB Questionnaire RAMONA-7 Date RAMONA - 7 assessed: 06/02/24 Source: Developed by Drs. Jose Anderson, Carrie Millard, Santi Frazier and colleagues, with an educational frank from [employer]. Physical exam (Primary Care) Vital Signs: Last Vital Signs Pulse 74 01/15/25 10:45 BP 130/62 01/15/25 10:45 Pulse Ox 98 01/15/25 10:45 Oxygen Delivery Method Room Air 01/15/25 10:45 BMI result Body Mass Index 21.5 Tobacco/Smoking Status: Tobacco use Status Tobacco use date assessed 06/02/24 01/15/25 10:48 Patient Tobacco Use Status Never used Tobacco 01/15/25 10:48 Tobacco use type Cigarette 01/15/25 10:48 e-Cigarette/Vaping Use Never Used 01/15/25 10:48 Thrive Assessment: Date of Thrive Assessment Date Thrive assessed 09/04/24 01/15/25 10:48 Currently or been in a relationship where the following occur: No concerns reported Const General: alert; No acute distress Eyes Conjunctivae: conjunctivae normal Chest Other: wheezing noted on the upper lung field bilateral Cardio Rate: regular rate Rhythm: regular rhythm GI Inspection: Yes normal to inspection Extrem General: Yes normal to inspection and No edema Coding Level of Care Code Est Pt Level 4 (83417) Complex EM visit Add On G2211 Diagnoses Pulmonary nodule R91.1 Mild intermittent asthma without complication J45.20 Asthma complication type: uncomplicated Asthma persistence: intermittent Asthma severity: mild Gastroesophageal reflux disease without esophagitis K21.9 Esophagitis presence: without esophagitis Fatty liver K76.0 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 (2) Asthma: Code(s): J45.909 - Unspecified asthma, uncomplicated Category: Medical Qualifiers: Asthma complication type: uncomplicated Asthma persistence: intermittent Asthma severity: mild Qualified Code(s): J45.20 - Mild intermittent asthma, uncomplicated Plan: On albuterol inhaler and Dupixent. (3) GERD (gastroesophageal reflux disease): Code(s): K21.9 - Gastro-esophageal reflux disease without esophagitis Category: Medical Qualifiers: Esophagitis presence: without esophagitis Qualified Code(s): K21.9 - Gastro-esophageal reflux disease without esophagitis Plan: Avoid the foods that causes that usually spicy foods, tomato products, juices, coffee, soda and foods that your sensitive to. After eating do not lie down, allow 3-4 hours before in lie down. And keep the head of bed above 30 degrees to avoid the acid from going up. 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 Be it pork or beef they have a lot of cholesterol on atorvastatin 10 mg once a day (7) Hypothyroid: Code(s): E03.9 - Hypothyroidism, unspecified Category: Medical Qualifiers: Hypothyroidism type: acquired Qualified Code(s): E03.9 - Hypothyroidism, unspecified Plan: Continue with thyroid medication but will have to retest (8) Hypertension: Code(s): I10 - Essential (primary) hypertension Category: Social Hx Qualifiers: Hypertension type: essential hypertension Qualified Code(s): I10 - Essential (primary) hypertension Plan: Continue with blood pressure medication. Decrease salt intake and exercise on amlodipine 10 mg once a day (9) Generalized anxiety disorder: Comment: Patient follows up with [facility] Code(s): F41.1 - Generalized anxiety disorder Category: Medical Plan: Continue with present medication and counseling Plan History of Present Illness The patient is an 84-year-old female presenting for a follow-up visit. She has a history of asthma, managed with an albuterol inhaler and Dupixent, and reports occasional wheezing. Her hypercholesterolemia is controlled with atorvastatin 10 mg daily, and her LDL cholesterol is 83 mg/dL. The patient has hypertension, managed with amlodipine 10 mg daily. She also has GERD, for which she follows a low-fat diet and exercises regularly. Her hypothyroidism requires ongoing medication, with a need for retesting due to previously abnormal thyroid levels. She has generalized anxiety disorder and is currently in counseling. The patient has hepatic steatosis, with elevated liver enzymes noted in her last blood work. She also has knee osteoarthritis, which affects her mobility. A CT scan revealed mild enlargement of the left submandibular gland, suggesting early acute sialadenitis and sialolithiasis. Additionally, a pulmonary nodule was identified, necessitating further evaluation with a dedicated CT scan. Her last blood work indicated chronic stable anemia, with good renal function and elevated blood sugar levels. Health Maintenance - Preventative care: Declined colonoscopy and mammogram - Diet and exercise: Low-fat diet and regular exercise for GERD management Social History - Smoking: Never smoked Review of Systems - Respiratory: Reports occasional wheezing - Endocrine: Reports abnormal thyroid levels Physical Exam - Respiratory: Wheezing noted upon auscultation Results - Imaging: CT scan showed mild enlargement of the left submandibular gland and a pulmonary nodule - Labs: Chronic stable anemia, elevated liver enzymes, elevated blood sugar, LDL cholesterol at 83 mg/dL Plan Patient was informed and verbally consented to the use of an ambient scribe for clinic note documentation during this visit. 1. Asthma The patient is advised to continue using the albuterol inhaler as needed and has been prescribed Symbicort, two puffs twice daily, with instructions to rinse her mouth after use. 2. Hypercholesterolemia The patient is to continue atorvastatin 10 mg daily to manage her cholesterol levels. 3. Hypertension The patient is to continue amlodipine 10 mg daily for blood pressure management. 4. Gastroesophageal Reflux Disease (Gerd) The patient is advised to maintain a low-fat diet and regular exercise regimen to manage GERD symptoms. 5. Hypothyroidism The patient is to continue her current thyroid medication and retest her thyroid levels as previously recommended. 6. Pulmonary Nodule A dedicated CT scan is recommended to further evaluate the pulmonary nodule. 7. Sialolithiasis The patient is advised to monitor for symptoms of sialadenitis and follow up as needed. Discussion Notes During the visit, we discussed the management of the patient's asthma, including the addition of Symbicort to her regimen. We also reviewed the need for a dedicated CT scan to evaluate the pulmonary nodule further. The importance of continuing her current medications for hypercholesterolemia, hypertension, and hypothyroidism was emphasized. We talked about maintaining a low-fat diet and regular exercise for GERD management. The patient was informed about the need to retest her thyroid levels and monitor for any symptoms related to sialolithiasis. Patient Instructions - Continue using albuterol inhaler as needed. - Use Symbicort, two puffs twice daily, and rinse mouth after use. - Continue atorvastatin 10 mg daily. - Continue amlodipine 10 mg daily. - Maintain a low-fat diet and regular exercise. - Retest thyroid levels as recommended. - Schedule a dedicated CT scan for pulmonary nodule evaluation. - Monitor for symptoms of sialadenitis and follow up as needed. Medications: New budesonide-formoterol 160-4.5 mcg/actuation (Symbicort) 2 puffs inhalation BID 10.2 grams 2RF J45.20 - Mild intermittent asthma, uncomplicated psyllium husk (with sugar) 3.4 gram/7 gram (Metamucil (with sugar)) 1 tbsp PO BID 822 grams 2RF J45.20 - Mild intermittent asthma, uncomplicated
--- OUTSIDE RECORDS SUMMARY | 2025-01-15 12:41 | XMS_ITS | Clinical Summary ---
Author Organization [employer] Address [address] [place] [address] Care Team Providers Care Journalism Teacher Name Role Phone Unavailable Primary Care Provider [...] 75+ series) 12/04/2014 COVID-19 Vaccine (4 - 2024-2 6 season) 2024 04/14/2021, 07/13/2020, 06/15/2020 Influenza Vaccine (#1) 2024 2, 02/23/2021 HIB Vaccines Aged Out No [...] patient's age to complete this topic Meningococcal B Vaccine Aged Out No l onger eligible based on patient's age to complete this topic Meningococcal Vaccine Aged Out No katie mario eligible based on patient's age to complete this topic RSV under 20 months Aged Out No longe r eligible based on patient's age to complete this topic Rotavirus Vaccines Aged Out No longer eligible based on patient's age to complete this topic Insurance [facility] [employer] MEDICARE
== END 2025-01-15 11:18 | disposition home or self-care (01) ==
LOC: HO.HMCH 10:35
PROVIDERS: PCP Internal Medicine; Visit Provider Internal Medicine
DX: R91.1 Solitary pulmonary nodule (principal); J45.20 Mild intermittent asthma, uncomplicated; K21.9 Gastro-esophageal reflux disease without esophagitis; K76.0 Fatty (change of) liver, not elsewhere classified; K11.8 Other diseases of salivary glands; E78.00 Pure hypercholesterolemia, unspecified; E03.9 Hypothyroidism, unspecified; I10 Essential (primary) hypertension; F41.1 Generalized anxiety disorder

== ENCOUNTER → 2025-01-15 10:34 | Outpatient (BNVA) | payer MEDICARE, MEDICAID, SELFPAY | PROVIDERS: PCP Internal Medicine; Visit Provider Internal Medicine | DX: R91.1 Solitary pulmonary nodule (principal); J45.20 Mild intermittent asthma, uncomplicated; K21.9 Gastro-esophageal reflux disease without esophagitis; K76.0 Fatty (change of) liver, not elsewhere classified; K11.8 Other diseases of salivary glands; E78.00 Pure hypercholesterolemia, unspecified; E03.9 Hypothyroidism, unspecified; I10 Essential (primary) hypertension; F41.1 Generalized anxiety disorder; K11.5 Sialolithiasis | CPT/HCPCS: 99212 ==

== ENCOUNTER 2025-02-12 13:27 | Outpatient (REF) | payer MEDICARE, MEDICAID, SELFPAY ==
--- NOTE | ~2025-02-12 | XR_ITS ---
EXAMINATION: XR CHEST CLINICAL INFORMATION: R07.9 - Chest pain, unspecified COMPARISON: None available. TECHNIQUE: 2 views of the chest were obtained. FINDINGS: Lungs are well-expanded and clear acute pneumonic process heart size is normal. Pulmonary vascularity is slightly prominent question mild congestion. No pleural effusion or thickening. There is bilateral apical pleural thickening. No gross bony abnormality seen. XR/XR chest 2V IMPRESSION: Increased pulmonary vascularity question mild congestion. Electronically signed by: Scotty Vickers MD 02/12/2025 02:09 PM EDT
[2025-02-12 15:06] LABS: Blood Urea Nitrogen 14 mg/dL (9-16); Estimated Glomerular Filt Rate > 60; Free T4 (Free Thyroxine) 1.00 ng/dL (0.71-1.85); Thyroid Stimulating Hormone 0.14 uIU/mL (0.32-4.0)
--- OUTSIDE RECORDS SUMMARY | 2025-02-12 16:56 | XMS_ITS | Data Portability ---
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 [email or web address] Not available 08/05/2024 08:07:08 10/08/2024 10/08/2024 1. Left neck aparna n 2. Left neck mass Cammie presents with left submandibular gland mass. She has a known history of sialolithiasis of the left submandibular gland with prior sialodochoplasty in ~2019. Her most recent Ct was at [facility] in 2023 - this shows a conglomerate of stones. She presents today with increase in size of the gland - now painful and firm. No other associated symptoms. I would like her to obtain another CT neck w/ contrast, as the mass has begun to change and cause new symptoms Follow-up after for consideration of biopsy/review of images [email or web address] Not available 10/08/2024 14:19:21 Plan of Treatment Reminders Order Date Submit Date Provider Last Modified By Organization Details Last Modified Time Details Appointments Establish ed 30 2025 12:00P M STACIE Marion MD Not available Not available Not available Lab None recorded. Referral None recorded. Procedures None recorded. Surgeries None recorded. Imaging CT, neck, soft tissue, w/ contrast 2024 025 [email or web address] [facility] [place], [address] [facility] [address], [place], [address], 12/16/2024 14:11:23 Medication Orders clindamyc in HCl 150 mg capsule 2024 025 [facility], [address] [place], [place], [id number], 12/26/2024 15:41:26 Patient TargetsNo targets recorded. Patient InstructionsNo instructions recorded. Reason for Referral None Reported. Results Created Date Observation Date Name Description Value Unit Range Abnormal Flag Note LastModifiedBy Organization Detail LastModifiedTime 12/17/1912/17/2024 BUN BUN 12 mg/dL 8-27 normal Not Available [facility] ([facility]) [address] [place], [address], 12/17/2024 03:16:00 12/17/19 25 12/17/2024 CREAT ININE creatinine 0.75 mg/dL 0.57-1 .00 normal Not Available [facility] ([facility]) [address] [place], [address], 12/17/2024 03:16:00 12/17/19 25 12/17/2024 CREAT ININE eGFR 78 mL/mi n/1.7 3 >59 normal Not Available [facility] ([facility]) [address] [place], [address], 12/17/2024 03:16:00 12/26/19 25 12/18/2024 CT, neck, soft tissu e, w/ contr ast No observ ation record ed. Not Available 11/29 14:29:55 Result Notes None recorded. Problems Name Problem SNOMED Code Status Onset Date Resolution Date Notes Provider Name and Address Organization Details Recorded Time Glossodyn ia 24493087 Active 2017 Glossodyn ia; Note: Date Diagnosed : 01/08/2018 9:56 AM (K14.6) Not Available [facility] 4 03:00:20 Impacted cerumen in left ear 71004421228 66295 Active 2017 Impacted cerumen, left ear; Note: Date Diagnosed : 01/08/2018 9:37 AM (H61.22) Not Available [facility] 4 03:00:19 Impacted cerumen of bilateral ears 14614209981 28490 Active 2017 Impacted cerumen, bilateral ; Note: Date Diagnosed : 02/28/2018 3:46 PM (H61.23) Not Available [facility] 4 03:00:21 Acute sialoaden itis 549930612 Active 2019 Acute sialoaden itis; Note: Date Diagnosed : 02/03/2020 9:35 AM (K11.21) Not Available [facility] 4 03:00:21 Celluliti s of oral soft tissues 5264507 Active 2019 Submandib ular abscess; Note: Date Diagnosed : 0 4:03 PM (K12.2) Not Available [facility] 4 03:00:22 Abscess of oral tissue 19210584 Active 2019 Submandib ular abscess; Note: Date Diagnosed : 0 4:03 PM (K12.2) Not Available [facility] 4 03:00:22 Pain of left temporoma ndibular joint 59331275327 677883 Active 2019 Arthralgi a of left temporoma ndibular joint; Note: Date Diagnosed : 04/06/2020 9:44 AM (M26.622) Not Available [facility] 4 03:00:19 Sialolith iasis 47798845 Active 2020 Sialolith iasis; Note: Date Diagnosed : 05/06/2020 11:41 AM (K11.5) Not Available [facility] 4 03:00:22 Chronic sialadeni tis 661820174 Active 2020 Chronic sialoaden itis; Note: Date Diagnosed : 05/06/2020 11:41 AM (K11.23) Not Available [facility] 4 03:00:21 Tinnitus of left ear 21750810371 06 Active 2020 Tinnitus, left ear; Note: Date Diagnosed : 12/24/2020 12:03 PM (H93.12) Not Available [facility] 4 03:00:21 Impacted cerumen in right ear 10405161385 88116 Active 2021 Impacted cerumen, right ear; Note: Date Diagnosed : 07/08/2021 1:48 PM (H61.21) Not Available [facility] 4 03:00:19 Referred otalgia of left ear 67063091652 30909 Active 2024 KATHLEEN SHARPE PA-C [address] [place] [address],[place] [address], [place], [address] , [facility] - [facility] 5 16:47:40 Mass of neck 694352653 Active 2024 PEYTON AMBRIZ MD [address] [place] [address], [place], [address] , [facility] - [facility] [place] 5 13:36:03 Nodule of lung 560398628 Active 2024 STACIE FISHER MD [address] [place] [address], [place], [address] , [facility] [place] 5 12:37:47 Problem Notes None recorded. Procedures Surgical History Date Name Laterality Status Provider Name and Address Organization Details Recorded Time Cerumen removal without microscope bilat completed STACIE FIHSER MD [address] [place] [address], [place], [address], [facility] 03/19/2024 11:28:15 Imaging Results None recorded. Procedure Notes None recorded. Medical Equipment None Reported. Allergies Allergen ID Allergen Name Allergen Category Reaction Reaction Severity Criticality Documentation Date Start Date Code Code System Note Provider Name and Address Organization Details Recorded Time 683078 Product containin g penicilli n (product) medicatio n other Not available Not available 09/11/2023 30662 8001 SNOMED React ion: unkno wn, unspe cifie d;; Not Available [facility] 4 01:13:51 907990 acetamino phen / oxycodone medicatio n other Not available Not available 09/11/202325982 3 RxNorm React ion: unkno wn, unspe cifie d;; Not Available [facility] 4 01:13:52 Medications Name Sig Start Date Stop Date Status Note LastModified by Organization Details LastModified Time Prescript ion - Prior Authoriza tion Request active Script Copy/Celsa or Auth^Scr ipt Copy/Celsa or Auth_ Not Available Not Available Not Available medbox status USE DIRECTED 08/04 completed Not Available Not Available Not Available atorvasta tin 40 mg tablet 07/05 completed Medicati on ID: [id number] D uration Value: 30 Brand Name: atorvast atin Sen d Method: E-Prescr ibed Sub s Allowed: subs OK Medic ationGen ericName : atorvast atin Not Available Not Available Not Available azelastin e 0.05 % eye drops INSTILL 1 DROP IN EACH EYE TWICE DAILY NEEDED 12/25 completed Not Available Not Available Not Available nystatin 100,000 unit/mL oral suspensio n 12/25 completed Medicati on ID: [id number] B rand Name: nystatin Send Method: E-Prescr ibed Sub s Allowed: subs OK Speci al Instruct ion: SWISH 4 ML IN MOUTH FOR ONE MIN AND SPIT OUT 4 TIMES DAILY Me dication GenericN helen: nystatin Not Available Not Available Not Available paroxetin e 10 mg tablet 12/25 completed Medicati on ID: [id number] B rand Name: paroxeti ne HCl Send [...] AFFECTED AREA(S) TWICE DAILY FOR 7 DAYS 12/25 completed Not Available Not Available Not Available atorvasta tin 10 mg tablet TAKE 1 TABLET BY MOUTH EVERYDAY AT NOON active Not Available Not Available No t Available Stool Softener 100 mg capsule TAKE 2 CAPSULES BY MOUTH EVERY DAY AT BEDTIME active Not Available Not Available No t Available alprazola m 1 mg tablet TAKE 1 TABLET BY MOUTH TWICE DAILY FOR 30 DAYS active Not Available Not Available No t Available Lidocaine Viscous 2 % mucosal solution Apply 15 ml by mouth three times a day as needed for pain 12/25 completed Medicati on ID: [id number] D uration Value: 30 Brand Name: Lidocain e Viscous Send Method: E-Prescr ibed Sub s Allowed: subs OK Speci al Instruct ion: SWISH AND SPIT. NO FOOD OR BEVERAGE FOR 30 MINUTES AFTER DOSE Med icationG enericNa me: Lidocain e Viscous Not Available Not Available Not Available tizanidin e 4 mg tablet TAKE 1 TABLET BY MOUTH TWICE DAILY NEEDED FOR MUSCLE SPASMS 12/25 completed Not Available Not Available Not Available ketotifen 0.025 % (0.035 %) eye drops 07/08 completed Medicati on ID: [id number] B rand Name: ketotife n fumarate Send Method: E-Prescr ibed Sub s Allowed: subs OK Speci al Instruct ion: PLACE 1 DROP IN EACH EYE TWICE DAILY NEEDED M misaelca Connell Name: ketotife n fumarate Not Available Not Available Not Available clindamyc in HCl 150 mg capsule TAKE 1 CAPSULE BY MOUTH EVERY 6 HOURS WITH MEALS FOR 10 DAYS 12/25 completed Not Available Not Available Not Available metronida zole 500 mg tablet TAKE 1 TABLET BY MOUTH EVERY 8 HOURS FOR 10 DAYS 12/25 completed Not Available Not Available Not Available hydroxyzi ne HCl 50 mg tablet TAKE 1 TABLET BY MOUTH TWICE DAILY 12/25 completed Not Available Not Available Not Available amlodipin e 5 mg tablet TAKE 1 TABLET BY MOUTH EVERY EVENING 12/25 completed Not Available Not Available Not Available tramadol 50 mg tablet 07/08 completed Medicati on ID: [id number] B rand Name: tramadol Send Method: E-Prescr [...] mg tablet 02/02 completed Medicati on ID: [id number] D uration Value: 25 Brand Name: alprazol am Send Method: E-Prescr ibed Sub s Allowed: subs OK Medic ationGen ericName : alprazol am Not Available Not Available Not Available Proctozon e-HC 2.5 % topical cream perineal applicato r 12/25 completed Medicati on ID: [id number] B rand Name: Proctozo ne-HC Se nd [...] TAKE 1 TABLET BY MOUTH EVERY MORNING 12/25 completed Not Available Not Available Not Available cephalexi n 500 mg capsule TAKE [...] MOUTH TWICE DAILY AT NOON AND BEDTIME 12/25 completed Not Available Not Available Not Available tacrolimu s 0.1 % topical ointment 12/25 completed Medicati on ID: [id number] B rand Name: tacrolim us Send Method: E-Prescr ibed Sub s Allowed: subs OK Medic ationGen ericName : tacrolim us Not Available Not Available Not Available olopatadi ne 0.1 % eye drops INSTILL 1 DROP IN EACH EYE TWICE DAILY (AT LEAST 6-8 HOURS APART) 12/25 completed Not Available Not Available Not Available triamcino lone acetonide 55 mcg nasal [...] elayed release 07/08 completed Medicati on ID: [id number] D uration Value: 30 Brand Name: omeprazo le Send Method: E-Prescr ibed Sub s Allowed: subs OK Medic ationGen ericName : omeprazo le Not Available Not Available Not Available monteluka st 10 mg tablet 07/08 completed Medicati on ID: [id number] B rand Name: monteluk ast Send Method: [...] day by oral route for 10 days. 12/25 completed Not Available Not Available Not Available mometason e 0.1 % topical ointment 12/25 completed Medicati on ID: [id number] B rand Name: mometaso ne Send Method: [...] Available diclofena c 1 % topical gel 12/25 completed Medicati on ID: [id number] B rand Name: diclofen ac sodium S end Method: E-Prescr ibed Sub s Allowed: subs OK Medic ationGen ericName : diclofen ac sodium Not Available Not Available Not Available Culturell e [facility] 10 billion cell-200 mg sprinkle capsule TAKE 1 TABLET BY MOUTH FOUR TIMES DAILY 12/25 completed Not Available Not Available Not Available ClearLax 17 gram/dose oral powder TAKE 17 GM MIXED IN 8 OUNCES OF WATER, COFFEE OR TEA ONCE DAILY 12/25 completed Not Available Not Available Not Available Breo Ellipta 100 mcg-25 mcg/dose powder [...] Updated DateTime 08/04/2024 149.86 cm 21 kg/m2 19914.61 g Maritza Shah ID - [facility] 08/04/2024 12:54:37 Date Recorded Body height Body mass index (BMI) Body weight Provider Name and Address Organization Details Last Updated DateTime 10/08/2024 149.86 cm 21 kg/m2 98719.61 g Jose Stout ID - [facility] 10/08/2024 13:04:29 Date Recorded Body height Body mass index (BMI) Body weight Provider Name and Address Organization Details Last Updated DateTime 11/18/2024 149.86 cm 21 kg/m2 26555.61 g Jose Stout ID - [facility] 11/18/2024 15:46:09 Date Recorded Body height Body mass index (BMI) Body weight Provider Name and Address Organization Details Last Updated DateTime 03/19/2024 149.86 cm 20.2 kg/m2 07992.24 g Jose Stout ID - [facility] 03/19/2024 10:44:15 Social History None recorded. Functional Status None recorded. Mental Status None recorded. Family History Nothing Reported. Medical History No medical history recorded. Gynecological HistoryNo gynecological history recorded. Obstetrics History GPAL:G 0 P 0 0 0 0 Past Encounters Encounter ID Performer Location Encounter Start Date Encounter Closed Date Diagnosis/Indication Diagnosis SNOMED-CT Code Diagnosis ICD10 Code Diagnosis IMO Codes Diagnosis Note [id number] PIPPA ALLEN MD [facility] [address] [place] [address] 10/17/2023 10:12:45 10/17/2023 11:26:00 Acute sialoadenitis 523952210 K11.21 Chronic sialadenitis 235 957746 K11.23 Sialolithiasis 81531456 K11.5 [id number] MERT BOWMAN PA-C [facility] [address] [place] [address] 10/23/2023 09:49:08 10/23/2023 10:39:54 Chronic sialadenitis 851396721 K11.23 [id number] PIPPA ALLEN MD [facility] [address] [place] [address] 2023 09:54:49 2023 11:02:46 Chronic sialadenitis 371999628 K11.23 Sialolithiasis 79068472 K11.5 [id number] STACIE FISHER MD [facility] [address] [place] [address] 12/17/2023 10:04:54 12/17/2023 11:29:24 Chronic sialadenitis 826977129 K11.23 She has chronic left sialadenit is [...] hydration, and sialogogue s. F/u 3 months. [id number] STACIE FISHER MD [facility] [address] [place] [address] 03/19/2024 10:33:51 03/19/2024 10:56:36 Chronic sialadenitis 745620548 K11.23 She has chronic left sialadenit is [...] months. Impacted c erumen of bilateral ears 2679787481 342139 H61.23 Recurrent Cerumen Impactions : Ears were meticulous ly cleaned bilaterall y today with a curette and suction. The patient tolerated this well and will follow up for repeat debridemen t per routine. [id number] KATHLEEN SHARPE PA-C [facility] [address] [address] 08/04/2024 12:47:28 08/04/2024 13:34:22 Chronic sialadenitis 832632459 K11.23 She has chronic left sialadenit is [...] months. Referred o talgia of left ear 4005720319 082489 H92.02 [id number] PEYTON AMBRIZ MD [facility] [address] [address] 10/08/2024 13:00:02 10/08/2024 13:44:47 Mass of neck 081083160 R22.1 [id number] STACIE FISHER MD [facility] [address] [address] 11/18/2024 15:33:30 11/18/2024 16:27:58 Chronic sialadenitis 286622355 K11.23 She has chronic left sialadenit is of the left submandibu lar gland due to a large stone. On exam today there is no infection. I could express clear saliva. She would be at high risk of fistula with gland removal given the size and location of a stone. I did offer surgery, however, she wants to defer. No need for abx today. Discussed milking gland, hydration, and sialogogue s. We will obtain a CT to better evaluate with f/u thereafter . [id number] STACIE FISHER MD [facility] [address] [place] [address] 12/25/2024 11:48:34 12/25/2024 12:23:50 Chronic sialadenitis 741297169 K11.23 CT scan shows some improvemen t in the inflammati on in the left submandibu lar gland. Her exam is also more benign. She has a chronic stone in that area and I believe her gland is starting to atrophy. I recommend continued observatio n. She will follow-up in 6 months. I personally reviewed her CT images and we discussed extensivel y. Nodule of lung 860237889 R91.1 [id number] I discussed the finding of the incidental pulmonary nodules on her CT. I gave her a copy of the CT report which she will share with her primary doctor at their visit next month. Given it is outside my scope of practice I discussed with her that I recommend that her primary doctor manage these nodules. She will bring her CT report to her next visit. Health Concerns Section Related Observation LastModified by Organization Detai ls LastModified Time None Recorded Concern Status LastModified by Organization Details LastModified Time None Recorded Advance Directives Directive None Recorded Payers Insurance Date Sequence Insurance Name Policy Number Policy Mcqueen Covered Member ID Mcqueen Member ID Guarantor Name 11/18/2024 3 [place] [employer] Cammie Stroud [id number] Cammie Stroud 12/30/2024 2 [place] [facility] Cammie Stroud [id number] Cammie Stroud 12/22/2024 1 [place] [employer] Cammie Stroud [id number] Cammie Stroud Notes Date Note Type Note Provider Name and Address Organization Details Recorded Time 03/19/2024 text/html ROS as noted in the HPI Hx of recurrent sialadenititis. Most recently of [...] her ears feel blocked. 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 This started 2-3 weeks ago and is intermittent. Pain radiated down left jaw. She has associated left ear dryness and itchiness. Denies ear drainage or hearing changes. No recent antibiotic. IJEOMA RIOS MD [address] [facility],[address], [address], [facility] - [facility] 08/05/2024 08:07:11 10/08/2024 text/html ROS as noted in the HPI Cammie presents with left submandibular gland mass. She has a known history of sialolithiasis of the left submandibular gland with prior sialodochoplasty in ~2019. Her most recent Ct was at [facility] in 2023 - this shows a conglomerate of stones.She presents today with increase in size of the gland - now painful and firm.No other associated symptoms. PEYTON AMBRIZ MD [address] [facility],[address], [address], [facility] 10/08/2024 14:19:32 11/18/2024 text/html ROS as noted in the HPI Hx of recurrent sialadenitis. Most recently of the left submandibular gland. She continues to have intermittent left submandibular pain and swelling. She saw Dr. Henderson who ordered a CT to evaluate for any change in pathology since the last CT. She deferred until now. She had a CT neck with contrast 10/21 which showed acute sialadenitis of the left submandibular gland with several associated stones. She reports since the last visit she has intermittent swelling of her left submandibular gland but it has subsided each time. STACIE FISHER MD [address] [facility],[address], [address], [facility] 11/18/2024 16:42:33 12/25/2024 text/html ROS as noted in the HPI Hx of recurrent sialadenitis. Most recently of the left submandibular gland. We obtained a CT of the neck with contrast which demonstrated chronic left sialoadenitis slightly diminished compared to last imaging. She has a calcification which is large within the left submandibular gland. Incidental pulmonary abnormalities were seen. She reports symptomatically she has done better since the last visit with less submandibular pain and swelling. She is making sure to drink lots of water. STACIE FISHER MD [address] [place] [address], [address], [facility] - [facility] 12/25/2024 12:39:12 OBGyn Episode No OBEpisode recorded.
--- OUTSIDE RECORDS SUMMARY | 2025-02-12 16:57 | XMS_ITS | Patient Health Record ---
Author Organization [facility] Address [address] [place] [address] Care Team Providers Care [employer] Travel Counselor Name Role Phone Irene Curry Primary Care Provid er Unavailable Alexander Torres Jr Unavailable Allergies Allergen (clinical drug ingredient) Drug/Non Drug Allergy documented on EMR Reaction Allergy Type Onset Date Status Penicillin Unknown Drug Allergy Active some narcotics (uncoded) nausea and vomiting Allergy Active Reason For Referral No Information Medications Medication SIG (Take, Route, Frequency, Duration) Notes Start Date End Date Status ProAir HFA 108 (90 Base) MCG/ACT 2 puffs as needed Inhalation every 4 hrs Active Xanax 1 MG 1 tablet Orally prn Active Advair Diskus 100-50 MCG/DOSE 1 puff Inhalation prn Active Sucralfate 1 GM 1 tablet on an empty stomach Orally QD Active traMADol HCl 50 MG 1 tablet as needed Orally bid Active Singulair 10 MG 1 tablet in the even ing Orally Once a day Active Loratadine 10 MG 1 tablet Orally Once a day Active Lisinopril 20 MG 1 tablet Orally Once a day Active Omeprazole 20 MG 2 capsules Orally On ce a day Active Levothyroxine Sodium 50 MCG 1 tablet Ora lly Once a day Active Problems Problem Type SNOMED Code ICD Code Onset Dates Problem Status W/U Status Risk Notes Problem Epigastric pain (06367374) Epigastric pain (R10.13) Active confirmed Problem Constipation (51767265) Constipation (K59.00) Active confirmed Problem Gastroesophageal reflux disease without esophagitis (368284967) Gastroesophageal reflux disease without esophagitis (K21.9) Active confirmed Problem Gas (69978805) Gas (R14.3) Active confirmed Plan Of Treatment No Information Insurance Providers Payer Name Payer Address Payer Phone Subscriber Number Group Number Insured Name Patient Relationship to Insured Coverage Start Date Coverage End Date MEDICARE OF [place] [address] KENY ALLEN ALEJANDRO [id number] ELOY RONDON Self - patient is the insured MEDICAID OF [employer] [address] [place] [phone] [id number] ELOY RONDON Self - patient is the insured Medical (General) History Medical History History ICD Code hypertension asthma Denies VT,DM,CVA,renal disease
--- OUTSIDE RECORDS SUMMARY | 2025-02-12 16:57 | XMS_ITS | Clinical Summary ---
Author Organization [employer] Address [address] [facility] [address] [place] [address] Care Team Providers Care Financial Wellness Coach Name Role Phone Unavailable Primary Care Provider [...] patient's age to complete this topic Insurance [facility] STANDARD [place] [phone]
== END 2025-02-12 13:28 | disposition home or self-care (01) ==
LOC: HO.XRAY 13:27
PROVIDERS: PCP Internal Medicine; Visit Provider Internal Medicine
DX: R91.1 Solitary pulmonary nodule (principal); E03.9 Hypothyroidism, unspecified; R07.9 Chest pain, unspecified
CPT/HCPCS: 36415; 71046; 82565; 84439; 84443; 84520

== ENCOUNTER → 2025-02-12 13:51 | Outpatient (BNV) | payer MEDICARE, MEDICAID, SELFPAY | PROVIDERS: PCP Internal Medicine; Visit Provider Radiology Diagnostic Radiology | DX: R07.9 Chest pain, unspecified (principal) | CPT/HCPCS: 71046 ==